=== PATIENT | male | born 1965 | race Caucasian/White ===

== ENCOUNTER 2016-12-28 13:43 | Observation (INO) | payer OTHER ==
[2016-12-28] MEDS ORDERED: ASPIRIN 81 MG CHEW PO STA (14:19)
[2016-12-28] MEDS ORDERED: NITROGLYCERIN SL TABS 0.4 MG TAB SUBLINGUAL STA ×3 (14:19)
--- NOTE | 2016-12-28 14:25 | ED ---
General Adult HPI - General Chief complaint: Chest Pain Stated complaint: Chest Pain Time Seen by Provider: 12/28/16 14:04 Source: patient, RN notes reviewed Mode of arrival: wheelchair Limitations: no limitations - History of Present Illness Initial comments: Patient is a pleasant 51-year-old male presenting to the emergency department complaining of chest discomfort. Symptoms have been intermittent for the past 3 days. Symptoms are becoming more frequent. Discomfort is currently 7/10. Patient has had some associated dyspnea and sweating. No nausea. No history of similar symptoms previous to the past few days. No leg pain or swelling. Patient does have some associated lightheadedness and fluttering in his chest. Discomfort is described as tightness. No radiation. - Related Data Home Medications Medication Instructions Recorded Confirmed Pregabalin [Lyrica] 150 mg PO BID 12/28/16 12/28/16 oxyCODONE HCL/ACETAMINOPHEN 1 tab PO Q8H PRN 12/28/16 12/28/16 [Percocet 10-325 mg] Allergies Allergy/AdvReac Type Severity Reaction Status Date / Time No Known Allergies Allergy Verified 12/28/16 14:46 Review of Systems ROS Statement: Those systems with pertinent positive or pertinent negative responses have been documented in the HPI. ROS Other: All systems not noted in ROS Statement are negative. Constitutional: Denies: fever Eyes: Denies: eye pain ENT: Denies: ear pain Respiratory: Reports: dyspnea. Denies: cough Cardiovascular: Reports: chest pain, palpitations Endocrine: Reports: fatigue Gastrointestinal: Denies: abdominal pain Genitourinary: Denies: dysuria Musculoskeletal: Denies: back pain Skin: Denies: rash Neurological: Denies: weakness Past Medical History Past Medical History: No Reported History History of Any Multi-Drug Resistant Organisms: None Reported Past Surgical History: No Surgical Hx Reported Additional Past Surgical History / Comment(s): EPIDURAL PAIN SHOTS, DECOMPRESSION NECK C6-7 neck fusion Past Psychological History: No Psychological Hx Reported Smoking Status: Current every day smoker Past Alcohol Use History: None Reported Past Drug Use History: None Reported General Exam Limitations: no limitations General appearance: alert, in no apparent distress Head exam: Present: atraumatic, normocephalic Eye exam: Present: normal appearance, PERRL ENT exam: Present: normal oropharynx Neck exam: Present: normal inspection Respiratory exam: Present: normal lung sounds bilaterally Cardiovascular Exam: Present: regular rate, normal rhythm Expanded Peripheral pulses: 2+: Radial (R), Radial (L), Posterior Tibialis (R), Posterior Tibialis (L) GI/Abdominal exam: Present: soft. Absent: distended, tenderness Extremities exam: Present: normal inspection. Absent: pedal edema, calf tenderness Neurological exam: Present: alert Psychiatric exam: Present: normal affect, normal mood Skin exam: Absent: rash Course Vital Signs 12/28/16 12/28/16 12/28/16 13:59 14:32 14:41 Temperature 97.9 F Pulse Rate 77 71 85 Respiratory 18 18 18 Rate Blood Pressure 139/91 118/79 116/72 O2 Sat by Pulse 98 97 96 Oximetry 12/28/16 12/28/16 12/28/16 14:50 15:01 15:12 Temperature Pulse Rate 96 80 78 Respiratory 18 18 18 Rate Blood Pressure 128/81 109/67 133/75 O2 Sat by Pulse 95 96 98 Oximetry EKG Findings - EKG Comments: EKG Findings:: Normal sinus rhythm at 80. ID 150. QRS 100. QT 394. QTC 454. Normal axis. Q wave in lead 3 with inverted T-wave. Medical Decision Making - Medical Decision Making Patient reexamined and resting comfortably in bed. Patient states no significant improvement with nitroglycerin or morphine or GI cocktail. Patient updated on results and plan. Dr. Pulido has been paged for hospital call. - Lab Data Result diagrams: 12/28/16 14:10 12/28/16 14:10 Lab Results 12/28/16 12/28/16 12/28/16 Range/Units 14:10 14:10 14:10 WBC 7.1 (3.8-10.6) k/uL RBC 5.05 (4.30-5.90) m/uL Hgb 15.7 (13.0-17.5) gm/dL Hct 44.6 (39.0-53.0) % MCV 88.4 (80.0-100.0) fL MCH 31.1 (25.0-35.0) pg MCHC 35.2 (31.0-37.0) g/dL RDW 13.3 (11.5-15.5) % Plt Count 212 (150-450) k/uL Neutrophils % 61 % Lymphocytes % 29 % Monocytes % 4 % Eosinophils % 3 % Basophils % 1 % Neutrophils # 4.3 (1.3-7.7) k/uL Lymphocytes # 2.1 (1.0-4.8) k/uL Monocytes # 0.3 (0-1.0) k/uL Eosinophils # 0.3 (0-0.7) k/uL Basophils # 0.1 (0-0.2) k/uL PT (9.0-12.0) sec INR (<1.1) APTT (22.0-30.0) sec D-Dimer (<0.60) mg/L FEU Sodium 141 (137-145) mmol/L Potassium 4.3 (3.5-5.1) mmol/L Chloride 103 (98-107) mmol/L Carbon Dioxide 28 (22-30) mmol/L Anion Gap 10 mmol/L BUN 15 (9-20) mg/dL Creatinine 0.74 (0.66-1.25) mg/dL Est GFR (MDRD) Af Amer >60 (>60 ml/min/1.73 sqM) Est GFR (MDRD) Non-Af >60 (>60 ml/min/1.73 sqM) Glucose 111 H (74-99) mg/dL Calcium 9.6 (8.4-10.2) mg/dL Magnesium 2.1 (1.6-2.3) mg/dL Total Bilirubin 0.6 (0.2-1.3) mg/dL AST 19 (17-59) U/L ALT 31 (21-72) U/L Alkaline Phosphatase 85 (38-126) U/L Total Creatine Kinase 56 (55-170) U/L CK-MB (CK-2) 0.6 (0.0-2.4) ng/mL CK-MB (CK-2) Rel Index 1.1 Troponin I <0.012 (0.000-0.034) ng/mL Total Protein 7.4 (6.3-8.2) g/dL Albumin 4.6 (3.5-5.0) g/dL 12/28/16 Range/Units 14:10 WBC (3.8-10.6) k/uL RBC (4.30-5.90) m/uL Hgb (13.0-17.5) gm/dL Hct (39.0-53.0) % MCV (80.0-100.0) fL MCH (25.0-35.0) pg MCHC (31.0-37.0) g/dL RDW (11.5-15.5) % Plt Count (150-450) k/uL Neutrophils % % Lymphocytes % % Monocytes % % Eosinophils % % Basophils % % Neutrophils # (1.3-7.7) k/uL Lymphocytes # (1.0-4.8) k/uL Monocytes # (0-1.0) k/uL Eosinophils # (0-0.7) k/uL Basophils # (0-0.2) k/uL PT 10.5 (9.0-12.0) sec INR 1.0 (<1.1) APTT 24.5 (22.0-30.0) sec D-Dimer 0.18 (<0.60) mg/L FEU Sodium (137-145) mmol/L Potassium (3.5-5.1) mmol/L Chloride (98-107) mmol/L Carbon Dioxide (22-30) mmol/L Anion Gap mmol/L BUN (9-20) mg/dL Creatinine (0.66-1.25) mg/dL Est GFR (MDRD) Af Amer (>60 ml/min/1.73 sqM) Est GFR (MDRD) Non-Af (>60 ml/min/1.73 sqM) Glucose (74-99) mg/dL Calcium (8.4-10.2) mg/dL Magnesium (1.6-2.3) mg/dL Total Bilirubin (0.2-1.3) mg/dL AST (17-59) U/L ALT (21-72) U/L Alkaline Phosphatase (38-126) U/L Total Creatine Kinase (55-170) U/L CK-MB (CK-2) (0.0-2.4) ng/mL CK-MB (CK-2) Rel Index Troponin I (0.000-0.034) ng/mL Total Protein (6.3-8.2) g/dL Albumin (3.5-5.0) g/dL - Radiology Data Radiology results: image reviewed (Chest x-ray shows no acute process.) Disposition Clinical Impression: Chest pain Disposition: ADMITTED IP TO THIS HOSP
[2016-12-28 14:52] LABS: ALT 31 U/L (21-72); AST 19 U/L (17-59); Alkaline Phosphatase 85 U/L (38-126); Anion Gap 10 mmol/L; Blood Urea Nitrogen 15 mg/dL (9-20); Calcium 9.6 mg/dL (8.4-10.2); Carbon Dioxide 28 mmol/L (22-30); Chloride 103 mmol/L (98-107); Glucose 111 mg/dL (74-99); Magnesium 2.1 mg/dL (1.6-2.3); Non-African American GFR(MDRD) >60 (>60 ml/min/1.73 sqM); Potassium 4.3 mmol/L (3.5-5.1); Sodium 141 mmol/L (137-145); Total Bilirubin 0.6 mg/dL (0.2-1.3); Total Protein 7.4 g/dL (6.3-8.2)
[2016-12-28 14:57] LABS: Basophils # (A) 0.1 k/uL (0-0.2); Basophils % (A) 1 %; CH 31.7; CHCM 36.1; Eosinophils # (A) 0.3 k/uL (0-0.7); Eosinophils % (A) 3 %; HCT 44.6 % (39.0-53.0); HDW 2.98; HGB 15.7 gm/dL (13.0-17.5); Luc # (Auto) 0.12; Luc % (Auto) 2; Lymphocytes # (A) 2.1 k/uL (1.0-4.8); Lymphocytes % (A) 29 %; MCH 31.1 pg (25.0-35.0); MCHC 35.2 g/dL (31.0-37.0); MCV 88.4 fL (80.0-100.0); Mean Platelet Volume 6.9; Monocytes # (A) 0.3 k/uL (0-1.0); Monocytes % (A) 4 %; Neutrophils # (A) 4.3 k/uL (1.3-7.7); Neutrophils % (A) 61 %; RBC 5.05 m/uL (4.30-5.90); RDW 13.3 % (11.5-15.5); WBC 7.1 k/uL (3.8-10.6); WBC (Perox) 7.07
[2016-12-28 15:02] LABS: Creatine Kinase 56 U/L (55-170)
[2016-12-28] MEDS ORDERED: MORPHINE SULFATE 4 MG/ML SYRINGE IVP STA (15:06)
[2016-12-28 15:16] LABS: Creatine Kinase MB 0.6 ng/mL (0.0-2.4); Troponin I <0.012 ng/mL (0.000-0.034)
[2016-12-28 15:24] LABS: Partial Thromboplastin Time 24.5 sec (22.0-30.0); Prothrombin Time 10.5 sec (9.0-12.0)
--- NOTE | 2016-12-28 15:34 | XR ---
EXAMINATION TYPE: XR chest 2V DATE OF EXAM: 12/28/2016 3:29 PM COMPARISON: NONE INDICATION: Chest pain, short of breath TECHNIQUE: Single frontal view of the chest is obtained. FINDINGS: The heart size is normal. The pulmonary vasculature is normal. The lungs are clear. IMPRESSION: 1. No acute pulmonary process.
[2016-12-28] MEDS ORDERED: MAG HYDROX/AL HYDROX/SIMETH 30 ML, HYOSCYAMINE ELIXIR 10 ML, CIMETIDINE HCL 300 MG, LID... PO STA ×4 (15:38)
[2016-12-28] MEDS ORDERED: NITROGLYCERIN SL TABS 0.4 MG TAB SUBLINGUAL PRN (16:16)
[2016-12-28] MEDS ORDERED: oxyCODONE-APAP 10-325MG 1 EACH TAB PO PRN ×2 (17:43→19:14)
[2016-12-28] MEDS: NITROGLYCERIN OINT 1 INCH/GM PACKET TOPICAL SCH (18:41)
[2016-12-28] MEDS: IBUPROFEN 800 MG TAB PO SCH ×2 (18:45→23:00)
[2016-12-28] MEDS: PREGABALIN 75 MG CAP PO SCH (20:02)
[2016-12-28 20:51] LABS: Creatine Kinase 46 U/L (55-170)
[2016-12-28 21:05] LABS: Creatine Kinase MB 0.4 ng/mL (0.0-2.4); Troponin I <0.012 ng/mL (0.000-0.034)
[2016-12-29] MEDS: NITROGLYCERIN OINT 1 INCH/GM PACKET TOPICAL SCH ×3 (02:59→13:51)
[2016-12-29 03:18] LABS: Cholesterol 178 mg/dL (<200); HDL Cholesterol 40 mg/dL (40-60); Triglycerides 142 mg/dL (<150)
[2016-12-29 03:46] LABS: Creatine Kinase 36 U/L (55-170)
[2016-12-29 03:57] LABS: Creatine Kinase MB 0.3 ng/mL (0.0-2.4); Troponin I <0.012 ng/mL (0.000-0.034)
--- NOTE | 2016-12-29 06:03 | HP ---
DATE OF ADMISSION: CHIEF COMPLAINT: Chest pain. HISTORY OF PRESENT ILLNESS: This is the first admission for this 51-year-old white male. He has had discomfort in the left anterior chest for about 4 days in the pectoralis muscle area. He describes it as actually being deep in the chest, however. He feels tight and he has had some shortness of breath and diaphoresis. He has had no syncope or nausea. EKG and enzymes in the emergency room are normal. As far as he knows, he does not have hyperlipidemia, family history, hypertension, etc. REVIEW OF SYSTEMS: He has had no neurologic problems, difficulty with vision or hearing, hemoptysis, asthma, murmurs, rheumatic fever, abdominal pain, nausea, vomiting, hematemesis, melena, hematochezia, jaundice, fever, chills, hematuria, frequency, urgency, diabetes, etc. Past medical history, family history and personal and social histories reveal that he has no allergies. He is on Lyrica and Percocet for neck pain and shoulder discomfort. Surgically, he has had a cervical spine fusion and procedure on the rotator cuff on the right. He smokes a pack of cigarettes a day. PHYSICAL EXAMINATION: Blood pressure 121/86 with a pulse of 83, respirations 19. He is afebrile. GENERAL: He appeared to well developed, well nourished no acute distress. Skin color is normal. Skin is warm and dry. Lymph nodes are not enlarged. Head, ears, eyes, nose, mouth, and throat normal. Neck veins not distended. Thyroid is not enlarged. Chest is clear. Cardiac exam is normal with normal sinus rhythm and no murmurs or extra sounds. Chest wall is not tender. ABDOMEN: Soft, nontender without any visceromegaly or masses. Bowel sounds present. EXTREMITIES: They are normal. Neurologically, he is intact. IMPRESSION: Chest pain. PLAN: 1. Bed rest. 2. IV fluids. 3. Serial EKGs and enzymes. 4. Eventual stress study either as an inpatient or outpatient.
[2016-12-29] MEDS ORDERED: ASPIRIN 325 MG TAB PO SCH (09:00)
[2016-12-29] MEDS: PREGABALIN 75 MG CAP PO SCH (09:02)
[2016-12-29] MEDS: IBUPROFEN 800 MG TAB PO SCH ×2 (09:02→13:51)
--- NOTE | 2016-12-29 09:37 | P.HPIM ---
History of Present Illness H&P Date: 12/29/16 Chief Complaint: Chest pain 51-year-old male presented on the day of admission to the emergency room to be evaluated for a chief complaint of developing intermittent episodes of chest pressure in the left anterior chest wall. Patient stated it started several days ago became more persistent. [place] stated there was a sensation of shortness of breath and did break out in a sweat there was no nausea. Patient gives no prior or similar episodes. 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 COLONOSCOPY/POLYPECTOMY( BENIGN) Past Anesthesia/Blood Transfusion Reactions: No Reported Reaction Past Psychological History: No Psychological Hx Reported Additional Psychological History / Comment(s): PT IS INDEPENDANT. NO ASSITIVE DEVICES-NO HOSPITAL EQUIPMENT. 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 NO SERVICE IN PAST. LIVES WITH GIRL FRIEND AND 2 DAUGHTERS. A CHOCLATE LAB NAMED [employer], A CAT NAMED MICHELE AND A GOLD FISH NAMED KENIA. HAS 3 STEPS INTO HOME. 2 STORY HOME-HAS 15 STAIRS TO UPPER LEVEL. Smoking Status: Current every day smoker Past Alcohol Use History: None Reported Additional Past Alcohol Use History / Comment(s): STARTED SMOKING AT AGE 18, SMOKES 1 PPD Past Drug Use History: None Reported - Past Family History Father Family Medical History: Cancer Additional Family Medical History / Comment(s): PANCREATIC CANCER Mother Family Medical History: No Reported History Additional Family Medical History / Comment(s): "HEALTHY" Medications and Allergies Home Medications Medication Instructions Recorded Confirmed Type Pregabalin [Lyrica] 150 mg PO BID 12/28/16 12/28/16 History oxyCODONE HCL/ACETAMINOPHEN 1 tab PO Q8H PRN 12/28/16 12/28/16 History [Percocet 10-325 mg] Allergies Allergy/AdvReac Type Severity Reaction Status Date / Time No Known Allergies Allergy Verified 12/28/16 14:46 Physical Exam Vitals: Vital Signs Temp Pulse Pulse Pulse Resp BP BP 12/29/16 07:51 97.7 F 76 17 111/62 12/29/16 04:00 97.7 F 66 66 16 100/70 12/29/16 00:00 97.8 F 62 60 16 102/64 12/28/16 20:00 73 16 12/28/16 17:40 97.5 F L 68 16 121/86 12/28/16 17:15 97.3 F L 67 18 137/84 12/28/16 16:58 77 18 109/84 Pulse Ox 12/29/16 07:51 96 12/29/16 04:00 95 12/29/16 00:00 97 12/28/16 20:00 12/28/16 17:40 99 12/28/16 17:15 98 12/28/16 16:58 97 Intake and Output 12/28/16 12/29/16 12/29/16 22:59 06:59 14:59 Other: Voiding Method Toilet Toilet # Voids 2 Weight 75.5 kg 75.5 kg GENERAL APPEARANCE: 51-year-old male patient is alert, oriented, in no acute distress. VITAL SIGNS: Reviewed HEENT: Head is normocephalic and atraumatic. Pupils are equal and reactive. The nares are patent. Oropharynx is clear without lesions. NECK: Supple without lymphadenopathy. Traches midline. HEART: S1, S2. Regular rate and rhythm. No murmur LUNGS: No crackles or wheezes are heard. Essentially clear on room air ABDOMEN: Soft, nontender, nondistended with good bowel sounds. No peritoneal signs. No palpable organomegaly or masses. EXTREMITIES: Normal skin color and turgor. No cyanosis, rash, ulceration, clubbing or edema. Radial pedal pulses are 2/4 bilaterally. NEUROLOGICAL: No focal deficits. Strength and sensation are grossly intact. Results CBC & Chem 7: 12/28/16 14:10 12/28/16 14:10 Labs: Abnormal Lab Results - Last 24 Hours (Table) 12/28/16 12/29/16 12/29/16 Range/Units 20:12 02:44 02:44 Total Creatine Kinase 46 L 36 L (55-170) U/L LDL Cholesterol, Calc 110 H (0-99) mg/dL Assessment and Plan Plan: Impression Present on admission atypical chest pain Chronic pain with opiate dependency Current every day smoker Plan Follow up on the cardiac enzymes if negative patient can be discharged home Resume home meds as appropriate The above dictated assessment and findings were discussed with Dr. Leblanc Impression and the plan of care have been dictated as directed. Jazzy Monge nurse practitioner acting as a scribe for Dr. Leblanc
--- NOTE | 2016-12-29 09:40 | P.DS ---
Providers Date of admission: 12/28/16 16:18 Expected date of discharge: 12/29/16 Attending physician: Baudilio Drake Primary care physician: Stated None Hospital Course: 51-year-old male presented on the day of admission to the emergency room to be evaluated for a chief complaint of developing intermittent episodes of chest pressure in the left anterior chest wall. Patient stated it started several days ago became more persistent. Maltese stated there was a sensation of shortness of breath and did break out in a sweat there was no nausea. Patient gives no prior or similar episodes. Patient has no significant past medical history given the above clinical presentation the patient was admitted for further cardiac workup Impression discharge diagnosis Present on admission chest pain atypical features no evidence of acute coronary syndrome negative cardiac enzymes Chronic neck and shoulder pain Chronic pain with opiate dependency Active nicotine dependency 1 pack daily greater than a 20 year history with probable COPD undiagnosed The above dictated assessment and findings were discussed with dr noelle Wolfe and the plan of care have been dictated as directed. Jazzy Monge nurse practitioner acting as a scribe for dr drake Plan - Discharge Summary Discharge Medication List Pregabalin [Lyrica] 150 mg PO BID 12/28/16 [History] oxyCODONE HCL/ACETAMINOPHEN [Percocet 10-325 mg] 1 tab PO Q8H PRN 12/28/16 [ History] Follow up Appointment(s)/Referral(s): None,Stated [Primary Care Provider] - 1-2 days
[2016-12-29 12:02] VITALS: BP 121/81; PULSE 82; RESP 18; TEMP 97.5
--- NOTE | 2016-12-29 17:34 | PN ---
CHIEF COMPLAINT: Chest pain. HISTORY OF PRESENT ILLNESS: This gentleman is doing well and enzymes are normal and EKGs were normal. We will let him go home today. On physical exam was unremarkable. His discharge will ( ) and the nurse and we will see him in the office and then we will perform a stress study at that time.
== END 2016-12-29 13:55 | disposition home or self-care (01) ==
LOC: EC 13:43 → 3OBS 16:18
PROVIDERS: ADMIT Family Medicine; ATTEND Family Medicine
DX: R07.89 Other chest pain (principal); R06.02 Shortness of breath; R61 Generalized hyperhidrosis; G89.29 Other chronic pain; M54.2 Cervicalgia; M25.519 Pain in unspecified shoulder; F11.20 Opioid dependence, uncomplicated; Z98.1 Arthrodesis status; F17.210 Nicotine dependence, cigarettes, uncomplicated; Z79.899 Other long term (current) drug therapy
CPT/HCPCS: 36415; 93005; 85379; 80061; 80053; 82550 ×2; 82553 ×2; 83735; 84484 ×2; 85025; 85610; 85730; 71020; 99285; 96374; G0378 ×2; J2270

== ENCOUNTER 2017-12-24 12:49 | Emergency (ER) | payer OTHER ==
--- NOTE | 2017-12-24 13:17 | ED ---
General Adult HPI - General Chief complaint: Back Pain/Injury Stated complaint: Lumbar Pain Time Seen by Provider: 12/24/17 13:03 Source: patient, RN notes reviewed Mode of arrival: ambulatory Limitations: no limitations - History of Present Illness Initial comments: This is a 52-year-old male presents emergency Department chief complaint of neck and back pain. Patient states that 3 days ago he started having symptoms or he has increased pain when he goes from sitting to standing states he was shooting pain from his neck down to his low back into his right leg. Patient does admit that he had a herniated disc any head cervical fusion by Dr. Lincoln. Patient states that he normally does have some discomfort but this is out of the usual for his self. He denies any chest pain or shortness of breath. Patient states he is able to look left and right states that he just feels pain that comes into his arms also with movement. Patient denies any current paresthesias of his upper extremities he does occasionally admit to lower extremity paresthesias. Denies any urinary retention or bowel incontinence. Patient has no abdominal pain denies any nausea vomiting diarrhea constipation. Patient states he does see Dr. Rockwell for pain management. Patient did admit that he thought he remembered slipping on some ice just prior to symptoms starting. He states when he finally gets up and walking this does improve his symptoms. - Related Data Home Medications Medication Instructions Recorded Confirmed Pregabalin [Lyrica] 150 mg PO BID 12/28/16 12/24/17 oxyCODONE HCL/ACETAMINOPHEN 1 tab PO Q8H PRN 12/28/16 12/24/17 [Percocet 10-325 mg] Previous Rx's Medication Instructions Recorded Cyclobenzaprine [Flexeril] 10 mg PO TID PRN #15 tab 12/24/17 predniSONE 50 mg PO DAILY #5 tab 12/24/17 Allergies Allergy/AdvReac Type Severity Reaction Status Date / Time No Known Allergies Allergy Verified 12/24/17 12:56 Review of Systems ROS Statement: Those systems with pertinent positive or pertinent negative responses have been documented in the HPI. ROS Other: All systems not noted in ROS Statement are negative. 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 COLONOSCOPY/POLYPECTOMY( BENIGN) Past Anesthesia/Blood Transfusion Reactions: No Reported Reaction Past Psychological History: No Psychological Hx Reported Smoking Status: Current every day smoker Past Alcohol Use History: None Reported Past Drug Use History: None Reported - Past Family History Father Family Medical History: Cancer Additional Family Medical History / Comment(s): PANCREATIC CANCER Mother Family Medical History: No Reported History Additional Family Medical History / Comment(s): "HEALTHY" General Exam Limitations: no limitations General appearance: alert, in no apparent distress Head exam: Present: atraumatic, normocephalic, normal inspection Neck exam: Present: normal inspection, tenderness (Tenderness over C6-C7), full ROM. Absent: meningismus, lymphadenopathy Respiratory exam: Present: normal lung sounds bilaterally. Absent: respiratory distress, wheezes, rales, rhonchi, stridor, chest wall tenderness Cardiovascular Exam: Present: regular rate, normal rhythm, normal heart sounds. Absent: systolic murmur, diastolic murmur, rubs, gallop, clicks GI/Abdominal exam: Present: soft, normal bowel sounds. Absent: distended, tenderness, guarding, rebound, rigid Extremities exam: Present: other (Upper and lower extremity pulses equal bilaterally, neurovascular intact he does have full range of motion though reports mild discomfort with range of motion of his lower extremities. There is no notable weakness no discoloration) Back exam: Present: normal inspection, full ROM, tenderness (Tenderness to the lumbar region primarily on the right paraspinal), paraspinal tenderness. Absent : vertebral tenderness Neurological exam: Present: reflexes normal. Absent: motor sensory deficit Skin exam: Present: warm, dry, intact, normal color. Absent: rash Course Vital Signs 12/24/17 12:53 Temperature 98.7 F Pulse Rate 94 Respiratory 20 Rate Blood Pressure 109/78 O2 Sat by Pulse 98 Oximetry Medical Decision Making - Medical Decision Making 52-year-old male presents from for neck and back pain. Patient had CTs of his neck and lumbar region cervical spine shows postsurgical changes no acute abnormality. Lumbar spine shows disc herniation most likely leading to his symptoms at this time. Patient will follow-up with his surgeon Dr. Mccloud and pain management Dr. Rockwell. Patiently discharges steroids, muscle relaxers. Return parameters were discussed. Disposition Clinical Impression: Lumbar disc herniation, Cervical pain Disposition: HOME SELF-CARE Condition: Stable Instructions: Acute Low Back Pain (ED) Additional Instructions: Please return to the Emergency Department if symptoms worsen or any other concerns. Prescriptions: Cyclobenzaprine [Flexeril] 10 mg PO TID PRN #15 tab PRN Reason: Muscle Spasm predniSONE 50 mg PO DAILY #5 tab Referrals: Baudilio Leblanc MD [Primary Care Provider] - 1-2 days Jennifer Lincoln DO [Doctor of Osteopathic Medicine] - 1-2 days Time of Disposition: 14:09
--- NOTE | 2017-12-24 13:58 | CT ---
EXAMINATION TYPE: CT cervical spine wo con DATE OF EXAM: 12/24/2017 COMPARISON: 11/12/2014 HISTORY: pain, no injury CT DLP: 563.7 mGycm Automated exposure control for dose reduction was used. TECHNIQUE: CT scan of the cervical spine is obtained without contrast, axial images are obtained, sa gittal and coronal reformatted images are also reviewed. FINDINGS: There is a plate with screws fusing anteriorly the cervical spine at C6-7. Vertebra have no rmal alignment. Posterior elements appear intact. Skull base appears intact. There is no evidence of a fracture. There is mild spurring anteriorly at C4-5 C5-6. There is no significant disc space narrow ing. IMPRESSION: Previous surgery. No acute abnormality of the cervical spine. Minimal spondylotic changes . No adverse change compared to old exam.
--- NOTE | 2017-12-24 14:00 | CT ---
EXAMINATION TYPE: CT lumbar spine wo con DATE OF EXAM: 12/24/2017 1:42 PM COMPARISON: NONE HISTORY: pain, no injury CT DLP: 404.4 mGycm Automated exposure control for dose reduction was used. Unenhanced CT of the lumbar spine was performed. Bone and soft tissue window settings are submitted as well as coronal and sagittal reconstructions. Lumbar vertebra have normal alignment. There is narrowing at L5-S1 disc space with anterior and poste rior lumbar disc herniation at L5-S1. There is spurring of the endplates at L5-S1. Posterior elements are intact. There is no compression fracture. The sacroiliac joints appear normal. There is no lumba r paraspinal mass. I see no focal bone destruction. IMPRESSION: Moderate spondylosis at L5-S1 with posterior and anterior disc herniations. There is developmentally adequate spinal canal and no significant spinal stenosis. L5-S1 disc herniation is slightly more towa rds the left side.
[2017-12-24] MEDS ORDERED: MORPHINE SULFATE 4 MG/ML SYRINGE IM STA (14:06)
[2017-12-24] MEDS ORDERED: methylPREDNISolone SOD SUCCI 125 MG/2 ML VIAL IM ONE (14:06)
[2017-12-24 14:31] VITALS: BP 120/86; PULSE 81; RESP 18; TEMP 97.4
== END 2017-12-24 14:31 | disposition home or self-care (01) ==
LOC: EC 12:49
DX: M51.26 Other intervertebral disc displacement, lumbar region (principal); M54.2 Cervicalgia; F17.200 Nicotine dependence, unspecified, uncomplicated; Z98.1 Arthrodesis status; Z79.899 Other long term (current) drug therapy
CPT/HCPCS: 99283; 96372 ×2; 72125; 72131; J2270; J2930

== ENCOUNTER 2018-03-08 12:42 | Emergency (ER) | payer OTHER ==
--- NOTE | 2018-03-08 12:55 | ED ---
Psych HPI - General Source: patient, EMS, RN notes reviewed Mode of arrival: EMS - History of Present Illness MD Complaint: suicidal ideation, feels depressed, other <Danilo Hill - Last Filed: 03/08/18 16:57> <Danilo Calhoun - Last Filed: 03/08/18 21:27> - General Stated Complaint: suicidal Time Seen by Provider: 03/08/18 12:42 - History of Present Illness Initial Comments: This is a 52-year-old male history depression and prior attempts at suicide by overdose apparently described it from his apartment recently he was brought in by EMS due to suicidal thoughts and ideation. He states she's feeling depressed. He doesn't have a definite plan at this time for hurting himself however. He additionally states she's been having intermittent chest pains over last couple weeks none at this time retrosternal when he gets that no fevers chills nausea vomiting sweats cough or phlegm production or other symptoms. No trauma. (Danilo Hill) - Related Data Home Medications Medication Instructions Recorded Confirmed oxyCODONE HCL/ACETAMINOPHEN 1 tab PO Q8H PRN 12/28/16 03/08/18 [Percocet 10-325 mg] Ibuprofen [Motrin] 800 mg PO Q6H PRN 03/08/18 03/08/18 Allergies Allergy/AdvReac Type Severity Reaction Status Date / Time No Known Allergies Allergy Verified 03/08/18 13:07 Review of Systems ROS Other: All systems not noted in ROS Statement are negative. <Danilo Hill - Last Filed: 03/08/18 16:57> ROS Other: All systems not noted in ROS Statement are negative. <Danilo Calhoun - Last Filed: 03/08/18 21:27> ROS Statement: Those systems with pertinent positive or pertinent negative responses have been documented in the HPI. 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 COLONOSCOPY/POLYPECTOMY( BENIGN) Past Anesthesia/Blood Transfusion Reactions: No Reported Reaction Past Psychological History: No Psychological Hx Reported Smoking Status: Current every day smoker Past Alcohol Use History: None Reported Past Drug Use History: None Reported - Past Family History Father Family Medical History: Cancer Additional Family Medical History / Comment(s): PANCREATIC CANCER Mother Family Medical History: No Reported History Additional Family Medical History / Comment(s): "HEALTHY" <Danilo Hill - Last Filed: 03/08/18 16:57> General Exam General appearance: alert, in no apparent distress Head exam: Present: atraumatic, normocephalic, normal inspection Eye exam: Present: normal appearance, PERRL, EOMI. Absent: scleral icterus, conjunctival injection, periorbital swelling ENT exam: Present: normal exam, mucous membranes moist Neck exam: Present: normal inspection. Absent: tenderness, meningismus, lymphadenopathy Respiratory exam: Present: normal lung sounds bilaterally. Absent: respiratory distress, wheezes, rales, rhonchi, stridor Cardiovascular Exam: Present: regular rate, normal rhythm, normal heart sounds. Absent: systolic murmur, diastolic murmur, rubs, gallop, clicks GI/Abdominal exam: Present: soft, normal bowel sounds. Absent: distended, tenderness, guarding, rebound, rigid Extremities exam: Present: normal inspection, full ROM, normal capillary refill. Absent: tenderness, pedal edema, joint swelling, calf tenderness Back exam: Present: normal inspection Neurological exam: Present: alert, oriented X3, CN II-XII intact Psychiatric exam: Present: depressed, flat affect, suicidal ideation Skin exam: Present: warm, dry, intact, normal color. Absent: rash <Danilo Hill - Last Filed: 03/08/18 16:57> <Danilo Calhoun N - Last Filed: 03/08/18 21:27> - General Exam Comments Initial Comments: This is a well-developed well-nourished awake alert oriented 3 male (Danilo Hill) Course <Danilo Hill - Last Filed: 03/08/18 16:57> <Danilo Calhoun - Last Filed: 03/08/18 21:27> Vital Signs 03/08/18 03/08/18 13:16 17:43 Temperature 98 F Pulse Rate 89 78 Respiratory 16 16 Rate Blood Pressure 139/75 121/75 O2 Sat by Pulse 98 100 Oximetry - Reevaluation(s) Reevaluation #1: 03/08/18 16:57 EKG obtained at 1656, normal sinus rhythm, rate of 64, IA interval 160, QRS duration 96, QTC 431, no ST segment elevation. (Danilo Calhoun) Reevaluation #2: 03/08/18 16:58 Patient's care will be endorsed to Dr. Calhoun at our shift change (Danilo Hill) Medical Decision Making - Lab Data Result diagrams: 03/08/18 13:23 03/08/18 14:30 <Danilo Hill - Last Filed: 03/08/18 16:57> - Lab Data Result diagrams: 03/08/18 13:23 03/08/18 14:30 <Danilo Calhoun - Last Filed: 03/08/18 21:27> - Medical Decision Making Patient signed out awaiting EPS evaluation. Patient is no longer suicidal, he denies any plan. He does have a plan to stay with a friend today. He will be discharged home with close outpatient follow-up. (Danilo Calhoun) - Lab Data Lab Results 03/08/18 03/08/18 03/08/18 Range/Units 13:23 13:23 13:23 WBC 6.5 (3.8-10.6) k/uL RBC 5.13 (4.30-5.90) m/uL Hgb 15.7 (13.0-17.5) gm/dL Hct 45.6 (39.0-53.0) % MCV 88.8 (80.0-100.0) fL MCH 30.7 (25.0-35.0) pg MCHC 34.5 (31.0-37.0) g/dL RDW 13.4 (11.5-15.5) % Plt Count 252 (150-450) k/uL Neutrophils % 58 % Lymphocytes % 31 % Monocytes % 5 % Eosinophils % 4 % Basophils % 1 % Neutrophils # 3.8 (1.3-7.7) k/uL Lymphocytes # 2.0 (1.0-4.8) k/uL Monocytes # 0.3 (0-1.0) k/uL Eosinophils # 0.3 (0-0.7) k/uL Basophils # 0.0 (0-0.2) k/uL PT 10.0 (9.0-12.0) sec INR 1.0 (<1.2) APTT 24.4 (22.0-30.0) sec D-Dimer 0.32 (<0.60) mg/L FEU Sodium (137-145) mmol/L Potassium (3.5-5.1) mmol/L Chloride (98-107) mmol/L Carbon Dioxide (22-30) mmol/L Anion Gap mmol/L BUN (9-20) mg/dL Creatinine (0.66-1.25) mg/dL Est GFR (CKD-EPI)AfAm (>60 ml/min/1.73 sqM) Est GFR (CKD-EPI)NonAf (>60 ml/min/1.73 sqM) Glucose (74-99) mg/dL Calcium (8.4-10.2) mg/dL Magnesium (1.6-2.3) mg/dL Total Bilirubin (0.2-1.3) mg/dL AST (17-59) U/L ALT (21-72) U/L Alkaline Phosphatase (38-126) U/L Total Creatine Kinase (55-170) U/L CK-MB (CK-2) (0.0-2.4) ng/mL CK-MB (CK-2) Rel Index Troponin I (0.000-0.034) ng/mL Total Protein (6.3-8.2) g/dL Albumin (3.5-5.0) g/dL Urine Opiates Screen Not Detected (NotDetected) Ur Oxycodone Screen Not Detected (NotDetected) Urine Methadone Screen Not Detected (NotDetected) Ur Propoxyphene Screen Not Detected (NotDetected) Ur Barbiturates Screen Not Detected (NotDetected) U Tricyclic Antidepress Not Detected (NotDetected) Ur Phencyclidine Scrn Not Detected (NotDetected) Ur Amphetamines Screen Not Detected (NotDetected) U Methamphetamines Scrn Not Detected (NotDetected) U Benzodiazepines Scrn Detected H (NotDetected) Urine Cocaine Screen Not Detected (NotDetected) U Marijuana (THC) Screen Not Detected (NotDetected) Serum Alcohol mg/dL 03/08/18 03/08/18 03/08/18 Range/Units 14:30 14:30 20:12 WBC (3.8-10.6) k/uL RBC (4.30-5.90) m/uL Hgb (13.0-17.5) gm/dL Hct (39.0-53.0) % MCV (80.0-100.0) fL MCH (25.0-35.0) pg MCHC (31.0-37.0) g/dL RDW (11.5-15.5) % Plt Count (150-450) k/uL Neutrophils % % Lymphocytes % % Monocytes % % Eosinophils % % Basophils % % Neutrophils # (1.3-7.7) k/uL Lymphocytes # (1.0-4.8) k/uL Monocytes # (0-1.0) k/uL Eosinophils # (0-0.7) k/uL Basophils # (0-0.2) k/uL PT (9.0-12.0) sec INR (<1.2) APTT (22.0-30.0) sec D-Dimer (<0.60) mg/L FEU Sodium 145 (137-145) mmol/L Potassium 4.5 (3.5-5.1) mmol/L Chloride 103 (98-107) mmol/L Carbon Dioxide 29 (22-30) mmol/L Anion Gap 13 mmol/L BUN 14 (9-20) mg/dL Creatinine 0.65 L (0.66-1.25) mg/dL Est GFR (CKD-EPI)AfAm >90 (>60 ml/min/1.73 sqM) Est GFR (CKD-EPI)NonAf >90 (>60 ml/min/1.73 sqM) Glucose 90 (74-99) mg/dL Calcium 9.6 (8.4-10.2) mg/dL Magnesium 2.2 (1.6-2.3) mg/dL Total Bilirubin 0.4 (0.2-1.3) mg/dL AST 24 (17-59) U/L ALT 40 (21-72) U/L Alkaline Phosphatase 72 (38-126) U/L Total Creatine Kinase 33 L 26 L (55-170) U/L CK-MB (CK-2) 0.3 <0.2 (0.0-2.4) ng/mL CK-MB (CK-2) Rel Index 0.9 Troponin I <0.012 <0.012 (0.000-0.034) ng/mL Total Protein 6.9 (6.3-8.2) g/dL Albumin 4.4 (3.5-5.0) g/dL Urine Opiates Screen (NotDetected) Ur Oxycodone Screen (NotDetected) Urine Methadone Screen (NotDetected) Ur Propoxyphene Screen (NotDetected) Ur Barbiturates Screen (NotDetected) U Tricyclic Antidepress (NotDetected) Ur Phencyclidine Scrn (NotDetected) Ur Amphetamines Screen (NotDetected) U Methamphetamines Scrn (NotDetected) U Benzodiazepines Scrn (NotDetected) Urine Cocaine Screen (NotDetected) U Marijuana (THC) Screen (NotDetected) Serum Alcohol <10 mg/dL Disposition <Danilo Hill - Last Filed: 03/08/18 16:57> Is patient prescribed a controlled substance at d/c from ED?: No Time of Disposition: 21:27 <Danilo Calhoun - Last Filed: 03/08/18 21:27> Clinical Impression: Depression Disposition: HOME SELF-CARE Condition: Fair Instructions: Depression (ED) Referrals: Baudilio Leblanc MD [Primary Care Provider] - 1-2 days
[2018-03-08 13:54] LABS: Basophils % (A) 1 %; Eosinophils # (A) 0.3 k/uL (0-0.7); Eosinophils % (A) 4 %; HCT 45.6 % (39.0-53.0); HGB 15.7 gm/dL (13.0-17.5); Lymphocytes % (A) 31 %; MCH 30.7 pg (25.0-35.0); MCHC 34.5 g/dL (31.0-37.0); MCV 88.8 fL (80.0-100.0); Monocytes # (A) 0.3 k/uL (0-1.0); Monocytes % (A) 5 %; Neutrophils # (A) 3.8 k/uL (1.3-7.7); Neutrophils % (A) 58 %; Platelet Count 252 k/uL (150-450); RBC 5.13 m/uL (4.30-5.90); RDW 13.4 % (11.5-15.5); WBC 6.5 k/uL (3.8-10.6)
[2018-03-08] MEDS ORDERED: LORazepam 1 MG TAB PO STA (14:02)
--- NOTE | 2018-03-08 14:05 | XR ---
EXAMINATION TYPE: XR chest 2V DATE OF EXAM: 03/08/2018 COMPARISON: 12/28/2016 HISTORY: Chest pain. Tobacco abuse. Prior asbestos exposure. TECHNIQUE: Frontal and lateral views of the chest are obtained. FINDINGS: There is no focal air space opacity, pleural effusion, or pneumothorax seen. The cardiac silhouette size is within normal limits. The osseous structures are intact. No calcified pleural pl aques are seen. Cervical fusion device is noted. IMPRESSION: No acute cardiopulmonary process. No calcified pleural plaques or radiographic sequela o f asbestos exposure.
[2018-03-08 14:13] LABS: Amphetamine Screen,Urine Not Detected (NotDetected); Barbiturate Screen,Urine Not Detected (NotDetected); Benzodiazepines Screen,Urine Detected (NotDetected); Cocaine Screen,Urine Not Detected (NotDetected); Methadone Screen, Urine Not Detected (NotDetected); Opiate Screen,Urine Not Detected (NotDetected); Oxycodone Screen, Urine Not Detected (NotDetected); Phencyclidine Screen,Urine Not Detected (NotDetected); Tricyclic Antidepressant,Urine Not Detected (NotDetected); Urn Cannabinoid Scrn Not Detected (NotDetected)
[2018-03-08 14:28] LABS: D-Dimer 0.32 mg/L FEU (<0.60); Partial Thromboplastin Time 24.4 sec (22.0-30.0)
[2018-03-08 14:47] LABS: ALT 40 U/L (21-72); AST 24 U/L (17-59); Albumin 4.4 g/dL (3.5-5.0); Alcohol <10 mg/dL; Alkaline Phosphatase 72 U/L (38-126); Anion Gap 13 mmol/L; Blood Urea Nitrogen 14 mg/dL (9-20); Calcium 9.6 mg/dL (8.4-10.2); Carbon Dioxide 29 mmol/L (22-30); Chloride 103 mmol/L (98-107); Glucose 90 mg/dL (74-99); Magnesium 2.2 mg/dL (1.6-2.3); Potassium 4.5 mmol/L (3.5-5.1); Sodium 145 mmol/L (137-145); Total Bilirubin 0.4 mg/dL (0.2-1.3); Total Protein 6.9 g/dL (6.3-8.2)
[2018-03-08 17:04] LABS: Creatine Kinase 33 U/L (55-170)
[2018-03-08 17:17] LABS: Creatine Kinase MB 0.3 ng/mL (0.0-2.4); Troponin I <0.012 ng/mL (0.000-0.034)
[2018-03-08 20:34] LABS: Creatine Kinase 26 U/L (55-170)
[2018-03-08 20:48] LABS: Creatine Kinase MB <0.2 ng/mL (0.0-2.4); Troponin I <0.012 ng/mL (0.000-0.034)
[2018-03-08 21:35] VITALS: BP 132/88; PULSE 69; RESP 18; TEMP 97.3
== END 2018-03-08 21:34 | disposition home or self-care (01) ==
LOC: EC 12:42
DX: F32.9 Major depressive disorder, single episode, unspecified (principal); R45.851 Suicidal ideations; R45.86 Emotional lability; R07.9 Chest pain, unspecified; F17.200 Nicotine dependence, unspecified, uncomplicated
CPT/HCPCS: 36415; 71046; 80053; 80306; 80320; 82075; 82550; 82553; 83735; 84484; 85025; 85379; 85610; 85730; 93005; 99285

== ENCOUNTER → 2019-01-15 | Outpatient (CLI) | payer OTHER ==
--- NOTE | 2019-01-15 12:57 | CT ---
EXAMINATION TYPE: CT chest wo con DATE OF EXAM: 01/15/2019 COMPARISON: None HISTORY: Left sided chest. CT DLP: 523 mGycm. Automated Exposure Control for Dose Reduction was Utilized. TECHNIQUE: CT scan of the thorax is performed without IV contrast. FINDINGS: LUNGS: The lungs are grossly clear, there is no evidence of acute pneumonia. There is no pleural ef fusion or pneumothorax seen. The tracheobronchial tree is patent. There is a 3 mm nodule within the right middle lobe on axial image 27. MEDIASTINUM: Lack of IV contrast is noted to limit evaluation for mediastinal and especially hilar ad enopathy. There are no definitive greater than 1 cm hilar or mediastinal lymph nodes. No cardiomega ly or pericardial effusion is seen. Atherosclerotic change aorta dense coronary artery calcification noted. OTHER: Postsurgical change of the cervical spine. IMPRESSION: 1. There is a 3 mm pulmonary nodule right middle lobe axial image 27 too small to characterize. Recom mend 6 month follow-up to confirm stability. 3. Dense coronary artery calcification correlate for coronary artery atherosclerotic disease.
== END | disposition home or self-care (01) ==
LOC: RADCTMAIN 12:20
PROVIDERS: ATTEND Family Medicine
DX: R91.1 Solitary pulmonary nodule (principal); I25.10 Atherosclerotic heart disease of native coronary artery without angina pectoris
CPT/HCPCS: 71250

== ENCOUNTER → 2019-01-22 | Outpatient (CLI) | payer OTHER ==
--- NOTE | 2019-01-22 16:25 | MR ---
MRI CERVICAL SPINE: CLINICAL HISTORY: M79.602 / R20.2 per order. Left arm pain and numbness. Headache with neck pain down left arm for 3 years causing her pain or weakness in both arms and fingers with history of C5-C6 fus ion for patient. TECHNIQUE: Multiplanar, multisequence imaging of the cervical spine is performed without and with IV contrast, 8.5 cc of gadolinium was given intravenously. COMPARISON: CT cervical spine December 24, 2017 FINDINGS: Coronal images redemonstrate levoconvex scoliotic curvature centered in the upper thoracic spine. Sagittal images of the cervical spine show the craniocervical junction to appear within normal limits. The cervical and upper thoracic spinal cord is normal in course, caliber, and signal. There is artifact from anterior fusion plate C6-C7 level. There is mild/moderate disc space narrowing C5-C 6 level with posterior disc herniation mildly effacing anterior thecal sac on sagittal images otherwi se the vertebral body and intravertebral disk heights are normal above and below surgical levels. Th e bone marrow signal intensity is within normal limits above and below surgical levels. No suspicious enhancement is seen. Axial images show the C2-C3 and C3-C4 levels to appear within normal limits. Axial images at C4-C5 level mild broad disc bulge with some bilateral uncovertebral facet joint spurr ing, there is mild effacement of the anterior thecal sac and mild left greater than right bilateral n eural foraminal narrowing. Axial images at C5-C6 level is artifact from anterior fusion plate. There is posterior right paracent ral broad-based disc protrusion effacing anterolateral thecal sac with mild to moderate left greater than right bilateral neural foraminal narrowing. Axial images at C6-C7 levels artifacts from surgical change, there is mild left-sided neural foramina l narrowing due to marginal spurring. Spinal canal is preserved. Axial images at C7-T1 levels artifact from surgical hardware otherwise are felt within normal limits. IMPRESSION: Postsurgical change C6-C7 level with satisfactory alignment. Some degenerative changes mi d cervical spine noted most prominent at C5-C6 level as detailed above..
== END | disposition home or self-care (01) ==
LOC: RADMRIMAIN 14:38
PROVIDERS: ATTEND Family Medicine
DX: M47.812 Spondylosis without myelopathy or radiculopathy, cervical region (principal); Z98.1 Arthrodesis status
CPT/HCPCS: 72156

== ENCOUNTER → 2019-07-19 | Outpatient (CLI) | payer OTHER ==
--- NOTE | 2019-07-19 12:19 | CT ---
EXAMINATION TYPE: CT chest wo con DATE OF EXAM: 07/19/2019 COMPARISON: CT 01/15/2019 HISTORY: Previous abnormal exam, pulmonary nodule CT DLP: 327.6 mGycm. Automated Exposure Control for Dose Reduction was Utilized. TECHNIQUE: CT scan of the thorax is performed without IV contrast. FINDINGS: LUNGS: The lungs are stable, there is no concerning parenchymal mass or nodule identified. The minute nodular density seen on prior exam at the level of the fissure is stable and measures only approxima tely 3 to 4 mm. There is no pleural effusion or pneumothorax seen. The tracheobronchial tree is villavicencio nt. MEDIASTINUM: Lack of IV contrast is noted to limit evaluation for mediastinal and especially hilar ad enopathy. There are no definitive greater than 1 cm hilar or mediastinal lymph nodes. No cardiomega ly or pericardial effusion is seen. There are dense coronary artery calcifications present. OTHER: No additional significant abnormality is seen. IMPRESSION: Stable exam. Nodule in right lung is likely benign.
== END | disposition home or self-care (01) ==
LOC: RADCTMAIN 10:51
PROVIDERS: ATTEND Family Medicine
DX: R91.8 Other nonspecific abnormal finding of lung field (principal); R91.1 Solitary pulmonary nodule
CPT/HCPCS: 71250

== ENCOUNTER → 2019-08-07 | Outpatient (CLI) | payer OTHER ==
--- NOTE | 2019-08-07 15:50 | NM ---
EXAMINATION TYPE: NM bone scan whole body DATE OF EXAM: 08/07/2019 COMPARISON: NONE HISTORY: Neck pain low back pain Delayed whole-body scanning was performed following the injection of 24 mCi Tc 99m MDP. Images acqui red 3.5 hours post injection. FINDINGS: No suspicious radiotracer accumulation within the axial or appendicular skeleton is evident. IMPRESSION: Normal whole body bone scan
== END | disposition home or self-care (01) ==
LOC: RADNMMAIN 10:30
PROVIDERS: ATTEND Family Medicine
DX: M54.5 Low back pain (principal); M54.2 Cervicalgia
CPT/HCPCS: 78306; A9503

== ENCOUNTER → 2019-10-31 | Outpatient (CLI) | payer OTHER ==
--- NOTE | 2019-10-31 11:35 | MR ---
EXAMINATION TYPE: MR lumbar spine wo/w con DATE OF EXAM: 10/31/2019 COMPARISON: NONE HISTORY: LBP, max leg numbness x 2 mos TECHNIQUE: T1 and T2 axial and sagittal images of the lumbar spine are submitted. FINDINGS: There is no abnormal signal seen within the visualized spinal cord or paraspinal soft tissu es. Heterogeneous marrow signal is nonspecific. Simple appearing right renal cyst noted. At T12-L1 there is a. Mild central left paracentral disc bulging but no focal herniation, canal steno sis, or foraminal encroachment. At L1-2 there is mild degenerative disc disease and broad-based disc bulging or protrusion centrally and paracentrally to left with mild effacement of thecal sac. There is moderate left foraminal encroa chment. Mild right foraminal encroachment and mild central stenosis. At L2-3 there is degenerative disc disease with broad-based central disc bulging slightly greater par acentrally to left with mild effacement of thecal sac but no focal herniation or canal stenosis. Mild facet arthropathy. Neural foramina remain patent. At L3-4 there is degenerative disc disease with broad-based central disc bulging but no canal stenosi s. There is facet arthropathy. Neural foramina patent. No focal herniation. At L4-5 there is a broad-based central disc protrusion or small herniation with moderate effacement o f thecal sac. There is facet arthropathy. There is moderate to severe right foraminal encroachment an d moderate left foraminal encroachment. Moderate canal stenosis. At L5-S1 there is severe degenerative disc disease with a large central and left paracentral disc her niation. There is compression of the exiting left nerve root. There is severe bilateral foraminal enc roachment. IMPRESSION: 1. Large central and left paracentral disc herniation L5-S1 with compression of the thecal sac and ex iting left nerve root. Severe bilateral foraminal encroachment. 2. Broad-based disc protrusion or herniation L1-L2 with effacement of thecal sac and moderate left fo raminal encroachment. 3. Broad-based central disc protrusion or small herniation L4-L5 with effacement of thecal sac. Moder ate to severe right foraminal encroachment and moderate left foraminal encroachment with moderate demar tral stenosis. 4. Degenerative disc disease and disc bulging L2-3 and L3-L4. 5. nonspecific heterogeneous marrow changes. 6. Nonspecific nodularity to the left adrenal gland measuring 1 cm stable from the CT scan of 01/16/20 19.
== END | disposition home or self-care (01) ==
LOC: RADMRIMAIN 09:00
PROVIDERS: ATTEND Family Medicine
DX: M51.17 Intervertebral disc disorders with radiculopathy, lumbosacral region (principal); M51.16 Intervertebral disc disorders with radiculopathy, lumbar region; G58.9 Mononeuropathy, unspecified
CPT/HCPCS: 72158; A9585

== ENCOUNTER → 2020-06-26 | Outpatient (CLI) | payer OTHER ==
--- NOTE | 2020-06-26 11:13 | CT ---
EXAMINATION TYPE: CT chest w con DATE OF EXAM: 06/26/2020 COMPARISON: CT chest 07/19/2019 and 01/15/2019 HISTORY: follow up lung nodule CT DLP: 374.8 mGycm Automated exposure control for dose reduction was used. CONTRAST: CT scan of the chest is performed with IV Contrast, patient injected with 100 mL of Isovue 300. FINDINGS: LUNGS: Lungs are grossly clear. There is an unchanged round solid right lower lobe 4 mm pulmonary nod ule (4:29, 7:40). No pleural effusion. No pneumothorax. The tracheobronchial tree is patent. MEDIASTINUM/SOFT TISSUES: No axillary, hilar, or mediastinal lymphadenopathy greater than 1 cm. Cardi ac size is normal. Calcified coronary artery disease. No pericardial effusion. No thoracic aortic ane urysm. UPPER ABDOMEN: Somewhat thickened appearance of the left adrenal gland is unchanged versus 01/15/2019 comparison. OSSEOUS: No acute osseous abnormality. Cervical spine fixation hardware. IMPRESSION: 1. Right lower lobe 4 mm pulmonary nodule is unchanged over 18 months. Findings are most likely benig n. Per Fleischner 2017 guidelines, no additional follow-up is necessary. 2. Calcified coronary artery disease.
== END | disposition home or self-care (01) ==
LOC: RADCTMAIN 08:07
PROVIDERS: ATTEND Thoracic Surgery (Cardiothoracic Vascular Surgery)
DX: R91.1 Solitary pulmonary nodule (principal); I25.10 Atherosclerotic heart disease of native coronary artery without angina pectoris
CPT/HCPCS: 71260; Q9967

== ENCOUNTER → 2020-11-17 | Outpatient (CLI) | payer OTHER ==
[2020-11-17 21:36] LABS: Calcium 9.9 mg/dL (8.7-10.3)
== END | disposition home or self-care (01) ==
LOC: LABWHC1 13:31
PROVIDERS: ATTEND Psychiatry & Neurology Pain Medicine
DX: E55.9 Vitamin D deficiency, unspecified (principal)
CPT/HCPCS: 36415; 82306; 82310

== ENCOUNTER → 2022-07-07 | Outpatient (CLI) | payer OTHER | END | disposition home or self-care (01) | LOC: LABPAT 07:29 | PROVIDERS: ATTEND Orthopaedic Surgery | DX: Z01.812 Encounter for preprocedural laboratory examination (principal); Z22.322 Carrier or suspected carrier of Methicillin resistant Staphylococcus aureus | CPT/HCPCS: 86850; 86900; 86901; 87070 ==

== ENCOUNTER 2023-01-10 10:52 | Inpatient (IN) | payer MEDICARE, OTHER ==
[2023-01-03 23:06] LABS: Basophils # (A) 0.07 X 10*3/uL (0.00-0.10); Basophils % (A) 0.9 %; Eosinophils # (A) 0.32 X 10*3/uL (0.04-0.35); Eosinophils % (A) 4.2 %; HCT 45.8 % (39.6-50.0); HGB 15.7 g/dL (13.0-17.0); Immature Grans, Automated 0.4 %; Lymphocytes # (A) 2.64 X 10*3/uL (0.90-5.00); Lymphocytes % (A) 34.9 %; MCH 31.7 pg (27.0-32.0); MCHC 34.3 g/dL (32.0-37.0); MCV 92.3 fL (80.0-97.0); Mean Platelet Volume 9.6 fL (9.5-12.2); Monocytes # (A) 0.43 X 10*3/uL (0.20-1.00); Monocytes % (A) 5.7 %; NRBC Per 100 WBC 0 /100 WBCS (0.0-0.0); Neutrophils # (A) 4.08 X 10*3/uL (1.80-7.70); Neutrophils % (A) 53.9 %; Platelet Count 248 X 10*3/uL (140-440); RBC 4.96 X 10*6/uL (4.40-5.60); RDW 13.2 % (11.5-14.5); WBC 7.57 X 10*3/uL (4.50-10.00)
[2023-01-03 23:11] LABS: African American GFR (CKD) 134.5 (60.0-200.0); Anion Gap 9.9 mmol/L (10.00-18.00); BUN/Creat Ratio 25.27 Ratio (12.00-20.00); Blood Urea Nitrogen 13.8 mg/dL (9.0-27.0); Calcium 9.7 mg/dL (8.7-10.3); Potassium 4.6 mmol/L (3.5-5.5)
[2023-01-03 23:14] LABS: INR 0.93 (0.90-1.11); Prothrombin Time 10.5 sec (9.9-11.9)
--- NOTE | 2023-01-10 06:54 | P.HPOR ---
History of Present Illness H&P Date: 01/04/23 [facility] H&P Age: 57 year Height: 5'7" Weight: 196 lbs BP:123/86 BMI: 30.70 kg/m2 Occupation: Retired VAS: 8 CHIEF COMPLA INT: Pre operative appointment DOI:Chronic DOS:07/14/2022 Post Op Week: 5 months HISTORY: Mr. Burns returns to the office for a pre-operative appointment regarding their lumbar (L2-S1) Revision decompression with revision (L4-S1) fusion Patient reports increasing lumbar pain primarily about the superior portion of the left buttock that radiates across into the contralateral side. With this he notes that his symptoms have worsened and is seeing increasing pain that is causing gait instability and dysfunction. Furthermore he notes that did have a fall after a sharp pain in the left side. Overall he notes that his symptoms have continued to worsen and is having significant difficulty completing most of his daily activities. Mr. Burns notes that their symptoms are exacerbated with standing, ambulation, and any flexion/extension/twisting, but this is well controlled with heat/ice, medications, and rest all without relief of his symptoms. Patient is having severe sleep disturbances as well. For their symptoms, the patient has been taking Flexeril, Gabapentin, and Larrabee 10/325mg all with mild relief of his symptoms. Otherwise the patient is very happy with t he progress they have made and have no acute concerns at this time. Patient denies any f/c/sob/cp, no incision concerns, no bladder or bowel retention/incontinence, no perineal numbness/tingling, and ambulates with a cane. Mr. Burns last returned to the office on 09/09/22 for a post-operative ev aluation following their L1-L2 laminectomy with microdiscectomy . Patient reports no changes to his pain or symptoms since the time of their last appointment. Overall the patient has seen continued left sided lumbar pain extending through the left lower extremity. His symptoms are exacerbated with p rolonged standing and ambulation which is making the completion of his daily tasks very challenging. Mr. Narayaninois taking Larrabee and Gabapentin with mild relief. Patient is having severe sleep disturbances as well. Otherwise the patient is very happy with the progress they have made and have no acute concerns at this time. Patient denies any f/c/sob/cp, no incision concerns, no bladder or bowel retention/incontinence, no perineal numbness/tingling, and ambulates independently. Mr. Burns returns to the office on 08/29/2022 to review the results of a recent MRI of the lumbar spine. Patient reports no changes from his symptoms since previous visit. patient continues to have aching and a sharp lumbar pain that is radiating to his left anterior thigh down the lateral portion of his left lower extremity into his foot, associated with numbness and tingling. MRI results reviewed, care options discussed with patient and his spouse. Patient is continuing to take Larrabee, gabapentin, and Flexeril. He currently denies any f/c/sob/cp, no incision concerns, no bladder or bowel retention/incontinence, no perineal numbness/tingling, and ambulates independently. Mr. Burns returns to the office 08/25/22 for a 6 week post-operative evaluation following their L1-L2 Microdiscectomy . Patient reports aching and sharp lumbar pain since the time of their last appointment. Patient reports that he was ambulating through the grocery store and felt a "popping" in his low back. Patient states he then became very pale and sweaty, in which a customer that was near the patient had to catch patient from falling. They had believed patient to be having a heart attack at first. Patient had a very sharp pain in his lower back that radiated to his left lower extremity, associated with numbness/tingling and weakness. Mr. Burns notes that their symptoms are exacerbated with any activity. Patient is having moderate sleep disturbances as well. For their symptoms, the patient has been taking Larrabee, gabapentin, and flexeril. He currently denies any f/c/sob/cp, no incision concerns, no bladder or bowel retention/incontinence, no perineal numbness/tingling, and ambulates indep endently. Mr. Burns returns to the office on 07/28/2022 for his first a post-operative evaluation following their L1-L2 laminectomy with microdiskectomy. Patient reports decreasing lumbar pain since the time of their procedure. Overall the patient has seen improving functionality but does report some continued mild radicular pain into the right buttock and lower extremity diffusely. Patient does however note that this is improved from before surgery and denies any left lower extremity symptoms. Mr. Burns notes that their symptoms are exacerbated with prolonged standing and ambulation, but this is well controlled with rest and medications. Patient is having mild sleep disturbances as well. For their symptoms, the patient has been taking Gabapentin, Flexeril, and Larrabee 10/325mg all with relief of his symptoms. Otherwise the patient is very happy with the progress they have made and have no acute concerns at this time. Patient denies any f/c/sob/cp, no incision concerns, no bladder or bowel retention/incontinence, no perineal numbness/tingling, and ambulates i ndependently. The patient's past medical history; past surgical history; family history; medicines; allergies and social history have been reviewed and are as stated elsewhere in the chart. 16 points review of systems completed and as stated in HPI, all other systems reviewed are negative. PHYSICAL EXAM: -Patient is alert and oriented 3 appears well-nourished well-hydrated is in no acute distress. They do not appear septic. -On exam the patient has no tenderness to palpation of their thoracic or lumbar spine. There is no edema or ballottement sign. -Upper extremities show 5/5 strength in all major muscle groups. -Lower extremities with 4+ out of 5 strength in all major muscle groups. Furthermore there is significant TTP about the midline of the lumbar region with left lower extremity dermatomal deficits about the L2-3 region. Overall functional testing is very limited due to pain at this time. Patient ambulating with the use of a walker and overall unsteady on his feet. -There is FROM that is painless of the b/l UE and LE in all major joints. -They are intact to light touch sensation in L2 to S1 nerve distribution as well as the C5-T1 distribution. -DTRs 2/4 all upper and lower -Patient has palpable distal pulses in all four extremities -Compartments are soft and compressible. -Neg Hernández's -No Clonus -Neg Babinski -Neg Miah's -No tensioning signs. -Cranial nerves II through XII are grossly intact. -Overall alignment is well-maintained in the sagittal coronal planes. Surgical incision: Looks good, no sign of any infection, no drainage, EEE, edema, or ecchymosis. No fevers or chills. RADIOGRAPHS: MRI scan [facility] from 08/25/2022 of Lumbar Spine: Post surgical changes noted L1-2 and L4-S1. ASD L3-4. Some residual stenosis L1-2 with spondylosis, No fractures. No lesions. Liekly pseudoarthrosis L5-S1 noted with marrow changes. No fracture. ASSESSMENT: 1. S/P L1-L2 laminectomy with microdiskectomy 2. L2-S1 spondylosis with stenosis 3. Adjacent segment disease L3-L4 4. S/P L4-S1 fusion 5. L4-S1 pseudoarthrosis PLAN: All options were reviewed today, we decided the best course of action would be: - Advised patient to continue with supplements, health maintenance, and home exercise programs. Patient expressed understanding and will continue with these modalities. - I discussed treatment options with the patient, including operative and non- operative options, and they have elected to proceed with the following surgical procedure: lumbar (L2-S1) Revision decompression with revision (L4-S1) fusion The indications, risks, benefits, and alternatives to surgery were discussed with the patient at length. Specifically (but not limited to) the risks of infection, stiffness, recurrence of symptoms, need for revision surgery, local numbness, neurovascular injury, and blood clots were discussed. The patient's questions were answered. The decision to proceed was made. Consent will be obtained for the procedure. Spine Surgery Risk Review Mr. uBrns is presenting for evaluation of low back pain. It was my pleasure to have seen and examined Mr. Burns. In our visit today we have had a chance to go over subjective complaints, physical examination findings and treatments including the natural course history without intervention and various interventional options. The patients imaging demonstrates: MRI scan [facility] from 08/25/2022 of Lumbar Spine: Post surgical changes noted L1-2 and L4-S1. ASD L3-4. Some residual stenosis L1-2 with spondylosis, No fractures. No lesions. Liekly pseudoarthrosis L5-S1 noted with marrow changes. No fracture. On physical exam, Mr. Burns demonstrates lower extremities with 4+ out of 5 strength in all major muscle groups. Furthermore there is significant TTP about the midline of the lumbar region with left lower extremity dermatomal deficits about the L2-3 region. Overall functional testing is very limited due to pain at this time. Patient ambulating with the use of a walker and overall unsteady on his feet. I have explained to the patient that as their condition progresses it will cause further neurological deficits and eventual paralysis. Based on the patients imaging, physical exam, and the rapid progression and disabling nature of their symptoms, at this time I recommend surgery in the form or a: lumbar (L2-S1) Revision decompression with revision (L4-S1) fusion. I discussed the risk and benefits of this procedure at length with Mr. Burns. The patient agreed to considered pursuing the procedure abovementioned. Prior to surgery, she should follow up with her PCP (Cardio, ID, IM etc) for clearance. Questions were inv ited and answered, and the patient wishes to proceed as outlined below. Currently, I am recommendin. lumbar (L2-S1) Revision decompression with revision (L4-S1) fusion 2.Follow up with PCP for surgical clearance 3.Review of surgical risks and benefits as well as an educational packet on the proposed surgical procedure. Risks: All surgical procedures come with inherent risks, including those related to pos itioning, anesthesia, intraoperative findings, and postoperative complications. It is important to understand that surgery does not come with any guarantee of a successful outcome as complications and adverse events are always possible. The patient was given a handout in office today discussing the surgical procedure and risks associated with the intervention, both of which were discussed with the patient. These risks include but are not limited to the following: * Experiencing same, different or even worse symptoms in back, neck, arms, or legs compared to before surgery. Requiring further surgery or other forms of treatment presently or at some time in the future at same or other levels of the intended spine surgery. On an extreme but fortunately relatively rare basis severe complication such as blindness, stroke, heart attack, temporary and/or permanent nerve injur y, paralysis, coma, or may occur, sometimes without known explanation. Surgical complications may include but are not limited to risk of infection, fluid accumulation in the surgical dissection site, including a seroma or hematoma, that requires additional surgery, wound drainage, bleeding, new numbness or weakness, vision changes/loss, spinal fluid leakage, non-healing and/or infected incision, headaches, difficulty or inability to swallow, hoarseness, hemopneumothorax, pneumothorax, impotence, retrograde ejaculation, vaginal dryness; injury to nerves, spinal cord, blood vessels, lymphatics or other vital organs (i.e., bowel injury, injury to the great vessels); heterotopic bone formation; complications related to the hardware such as screws, rods, cages including misplaced hardware, device failure, instrumentation at the wrong spine level, hardware fracture/breakage, or morgan dware loosening; vertebral failure of the spinal column above or below the newly placed hardware; retained surgical instrumentations or devices and the need for further surgery. * Medical risks of the planned spine surgery include but are not limited to generalized Infections to the whole body or local areas outside of the surgical site (sepsis), heart attack, bleeding, anaphylaxis, meningitis, seizure, epilepsy, hearing loss, burn diaz, laceration of the head or other areas of the body, bruising, hypersensitivity of the skin, bladder over distension; allergic reaction; shoulder injury related to positioning; fat, blood and air clots to other areas of the body like heart, lungs, brain; failure of internal organs such as lungs, kidneys, liver and excessive bleeding. If blood transfusions are necessary, note that transfusions may cause intolerance reactions such as anaphylaxis or other complex reactions. Despite best efforts, the results of spine surgery might not heal in terms of bone, soft tissues such as skin, fascia, ligaments, and joints. Additionally, in order to achieve best possible results, spine surgery may be carried out beyond the initially planned levels and involve decompression, fusion including insertion of hardware at levels other than the original intended area of surgical interest change some portions of the procedure in order to ensure the best possible outcomes. With spine surgery and spinal fusion, there are different off label uses of instrumentation (devices, implants and hardware) as well as biological substances (bone morphogenic proteins, demineralized bone matrix) as well as using extra bone from allograft sources (i.e. cadaver bone) or autograft (iliac crest bone, ribs, or the spine itself). The patient has been given information about these practices and their inherent risks and benefits. [facility] is an educational center that serves as a training facility for neurosurgical and orthopedic [employer] and Nursing students. Physician assistants are medically trained surgical providers who function in the outpatient, [facility], and operating room setting under the direct supervision of the attending surgeon. [facility] has multiple operating rooms with single and overlapping rooms running daily. They currently function under the required guidelines as produced by the [facility] with regards to the overlapping rooms and will continue to comply with changes to this policy as they occur. The requirements include and are complied with as follows: (1) the critical portions of the overlapping rooms will not occur at the same time, (2) the attending physician will be physically present during the critical portions of the procedure and immediately available during the entire case, and (3) a back-up attending is designated should the primary attending not be immediately available. The patient has had a chance to review all the listed information, has been given print outs detailing this information, and has had all his/her questions answered to their satisfaction. It was my pleasure to have seen and examined Mr. Burns. In our visit today we have had a chance to go over my understanding of our patient's current condition, the natural course history without intervention and various interventional options. Questions were invited and answered, and the patient wishes to proceed as outlined above. I have seen and examined the patient for 25 minutes and we have spent more than 50% of the time in repeat and detailed counseling about the patient's condition, its natural course history with out and as much as can be predicted with surgery and re-review of various surgical treatment options. In conclusion, Mr. Burns requested we proceed with the above suggested surgery and are willing to accept risks and limitations of the suggested surgery as nature of the disease process and our best attempts at treatment for the condition. Thank you again for allowing us to be part of your patient's care. Please don't hesitate to contact me if you have any further questions. FOLLOW-UP Post procedure Pt Education (Informational booklet, instructions, etc) given at today's appointment: Yes .ED:Patient Education: Y Medications Reviewed: YES Attestation: In our visit today Mr. Burns and I have had a chance to go over my understanding of the patient's current condition, the natural course history without intervention and various interventional options. Questions were invited and answered, and the patient wishes to proceed as outlined above. I will be sure to keep you updated afterMr. Burns returns here for further follow-up. Thank you again for your referral. Please do not hesitate to contact me if you have any further questions. Signed and authenticated by: B[facility] [address] [facility], [address] [address] This message is confidential, intended only for the named recipient(s) and may contain information that is privileged or exempt from disclosure under applicable law. If you are not the intended recipient(s), you are notified that the dissemination, distribution or copying of this information is strictly prohibited. If you received this message in error, please notify the sender then delete this message. Patient verbalizes understanding of the information discussed. The above note was initiated by Ninoska Méndez, physician recording senior court office assistant for Dr. Brayan Don. This note has been reviewed by Dr. Don, who has made his personal changes and impressions for this document. CC: Raul Leblanc M.D. # SIGNED BY Brayan Don ([facility])01/09/2023 10:21AM # REVISED BY Brayan Don ([facility])01/10/2023 06:52AM Past Medical History Past Medical History: GERD/Reflux, Hyperlipidemia, Hypertension, Musculoskeletal Disorder, Osteoarthritis (OA) Additional Past Medical History / Comment(s): DDD, "PALPITATIONS", "ASBESTOS EXPOSURE IN HIS LINE OF WORK", possible sleep apnea-but no sleep study done yet History of Any Multi-Drug Resistant Organisms: None Reported Past Surgical History: Back Surgery, Heart Catheterization, Orthopedic Surgery Additional Past Surgical History / Comment(s): EPIDURAL PAIN SHOTS, DECOMPRESSION NECK C6-7 neck fusion, RT ROTATOR CUFF. COLONOSCOPY/POLYPECTOMY, back surg. x2, L5-S1 fusion, cage L4-L5, microdiscectomy Past Anesthesia/Blood Transfusion Reactions: No Reported Reaction Smoking Status: Current every day smoker - Past Family History Father Family Medical History: Cancer Additional Family Medical History / Comment(s): PANCREATIC CANCER. Mother Family Medical History: No Reported History Additional Family Medical History / Comment(s): "HEALTHY" Medications and Allergies Home Medications Medication Instructions Recorded Confirmed Type Atorvastatin Calcium [Lipitor] 80 mg PO QAM 07/12/22 01/04/23 History Fenofibrate Nanocrystallized 145 mg PO QAM 07/12/22 01/04/23 History [Fenofibrate] HYDROcodone/APAP 10-325MG [Larrabee 1 tab PO TID 07/12/22 01/04/23 History 10-325] atenoloL [Tenormin] 50 mg PO QAM 07/12/22 01/04/23 History Gabapentin 300 mg PO TID #90 cap 07/14/22 01/04/23 Rx Cyclobenzaprine [Flexeril] 10 mg PO TID PRN 01/04/23 01/04/23 History Pantoprazole [Protonix] 40 mg PO DAILY 01/04/23 01/04/23 History Allergies Allergy/AdvReac Type Severity Reaction Status Date / Time No Known Allergies Allergy Verified 01/04/23 14:52 Physical Examination Osteopathic Statement: *. No significant issues noted on an osteopathic structural exam other than those noted in the History and Physical/Consult. Results - Labs Labs: H & H 01/03/23 Range/Units 14:53 Hgb 15.7 (13.0-17.0) g/dL Hct 45.8 (39.6-50.0) % Coagulation 01/03/23 Range/Units 15:01 INR 0.93 (0.90-1.11) Result Diagrams: 01/03/23 14:53 01/03/23 14:53
[~2023-01-10 10:52] MED LIST: ACETAMINOPHEN TAB 500 MG TAB PO PRN; GABAPENTIN 300 MG CAP PO PRN; TRANEXAMIC ACID IN NACL,ISO-OS 1,000 MG in SALINE 1 100ML.BAG IVPB PRN; fentaNYL (PF) 50 MCG/ML 2 ML AMP IV PRN
[2023-01-10] MEDS: LACTATED RINGERS 1,000 ML IV SCH ×2 (11:34→20:47)
[2023-01-10] MEDS: ONDANSETRON 4 MG/2 ML VIAL IVP PRN ×3 (11:42→11:56)
[2023-01-10] MEDS ORDERED: fentaNYL (PF) 50 MCG/1 ML VIAL IVP ONE ×2 (11:53→12:02)
[2023-01-10] MEDS ORDERED: MIDAZOLAM 2 MG/2 ML VIAL IVP ONE (11:53)
--- NOTE | 2023-01-10 12:32 | P.ANPRN ---
Procedure Note - Anesthesia - Invasive Line Right Central Line Time Out Performed: Yes (1153) Date of Procedure: 01/10/23 Time of Procedure: 11:54 Location of Patient: PreOp Preparation: Sterile Prep, Sterile Dressing Central Line Location: Internal Jugular (RIGHT TRIPLE LUMEN) Ultrasound Used: Yes Purpose - Visualization and Identification of Vasculature: Yes Needle Guage: 18G ANGIO Image Stored and Saved: Yes Narrative: Central line placement per sterile protocol utilized. +LOCAL +CVP +ANGIO +UNEVENTFUL DILATION AND INTRODUCTION RIGHT ij TLC. Lumens bled and flushed.
--- NOTE | 2023-01-10 12:36 | XR ---
EXAMINATION TYPE: XR chest 1V confirm line [facility] DATE OF EXAM: 01/10/2023 COMPARISON: 03/08/2018 INDICATION: Central line placement TECHNIQUE: Single frontal view of the chest is obtained. FINDINGS: The heart size is normal. The pulmonary vasculature is normal. The lungs are clear. No pneumothorax is evident. Right-sided central venous catheter placement is evident with the tip in the superior vena cava region. IMPRESSION: 1. No pneumothorax post right central venous catheter placement. Tip is within the distal superior ve na cava region.
[2023-01-10] MEDS ORDERED: ROCURONIUM 10 MG/ML (5 ML VIAL) IV ONE (13:04)
[2023-01-10] MEDS ORDERED: fentaNYL (PF) 50 MCG/ML 2 ML AMP ONE (13:04)
[2023-01-10] MEDS ORDERED: KETAMINE 10 MG/ML 20 ML VIAL ONE (13:04)
[2023-01-10] MEDS ORDERED: SUCCINYLCHOLINE CHLORIDE 200 MG/10 ML VIAL IV ONE (13:04)
[2023-01-10] MEDS ORDERED: TRANEXAMIC ACID IN NACL,ISO-OS 1,000 MG/100 ML BAG ONE (13:04)
[2023-01-10] MEDS ORDERED: LIDOCAINE 2% INJ 20 MG/ML (2 ML VIAL) ONE (13:04)
[2023-01-10] MEDS ORDERED: PHENYLEPHRINE-0.9% NACL SYG 1,000 MCG/10 ML SYRINGE ONE (13:04)
[2023-01-10] MEDS ORDERED: HYDROmorphone (PF) 1 MG/ML ONE (13:04)
[2023-01-10] MEDS ORDERED: PROPOFOL 10 MG/ML 20 ML VIAL IV ONE (13:04)
[2023-01-10] MEDS ORDERED: LACTATED RINGERS 1,000 ML IV ONE ×3 (13:54→16:54)
[2023-01-10] MEDS ORDERED: GELATIN SPONGE,ABSORB (LARGE) 1 EACH SPONGE TOPICAL ONE (13:56)
[2023-01-10] MEDS ORDERED: THROMBIN (BOVINE) 5,000 UNIT VIAL TOPICAL ONE ×2 (13:57→16:07)
[2023-01-10] MEDS ORDERED: ceFAZolin 3,000 MG in SODIUM CHLORIDE 0.9% IRRIGATIO 3,000 ML IRRIGATION ONE (13:57)
[2023-01-10] MEDS ORDERED: GENTAMICIN 80 MG in SODIUM CHLORIDE 0.9% IRRIGATIO 3,000 ML IRRIGATION ONE (13:59)
[2023-01-10] MEDS ORDERED: VANCOMYCIN 1,000 MG VIAL MISCELLANE ONE (16:55)
[2023-01-10] MEDS ORDERED: HYDROcodone/APAP 5-325MG 1 EACH TAB PO PRN (17:54)
[2023-01-10] MEDS ORDERED: SENNOSIDES-DOCUSATE SODIUM 1 EACH TAB PO PRN (17:54)
[2023-01-10] MEDS ORDERED: HYDROmorphone 0.5 MG/0.5 ML SYRINGE IVP PRN (17:54)
[2023-01-10] MEDS ORDERED: MAGNESIUM HYDROXIDE 2,400 MG/10 ML CUP PO PRN (17:54)
[2023-01-10] MEDS: HYDROmorphone 0.5 MG/0.5 ML SYRINGE IVP PRN ×4 (18:29→21:14)
--- NOTE | 2023-01-10 19:02 | FL ---
Intraoperative/procedural fluoroscopic services were provided. Total fluoroscopy time is 1 minute 13 seconds with a total of 7 submitted images to PACS. Please see the operative/procedural note for furt her details. DAP: [id number]
[2023-01-10] MEDS: HYDROcodone/APAP 10-325MG 1 EACH TAB PO PRN (19:48)
[2023-01-10] MEDS: HYDROmorphone 1 MG/ML 1 ML SYRINGE IVP PRN ×2 (19:49→22:39)
[2023-01-10] MEDS: CYCLOBENZAPRINE 10 MG TAB PO PRN (19:49)
[2023-01-10] MEDS: ACETAMINOPHEN TAB 325 MG TAB PO SCH (20:47)
[2023-01-10] MEDS: GABAPENTIN 300 MG CAP PO SCH (21:14)
[2023-01-11] MEDS: HYDROcodone/APAP 10-325MG 1 EACH TAB PO PRN (01:14)
[2023-01-11] MEDS: HYDROmorphone 1 MG/ML 1 ML SYRINGE IVP PRN ×8 (01:15→21:57)
--- NOTE | 2023-01-11 01:22 | P.CONS ---
History of Present Illness - Reason for Consult Consult date: 01/10/23 post op medical follow up Requesting physician: Brayan Don - Chief Complaint L3 spinal fusion - History of Present Illness 57 year old male with hypertension , hyperlipidemia , chronic low back pain patient coming in for scheduled surgery of his lower back , this is his 3rd surgery since an injury many years ago. he tolerated procedure well, still reports symptoms of chronic lower extremity radiculopathy , pain is controlled , denies any chest pain or trouble breathing denies any nausea or vomiting Review of Systems Pertinent positives as noted in HPI. All other systems were reviewed and are negative Past Medical History Past Medical History: GERD/Reflux, Hyperlipidemia, Hypertension, Musculoskeletal Disorder, Osteoarthritis (OA) Additional Past Medical History / Comment(s): DDD, "PALPITATIONS", "ASBESTOS EXPOSURE IN HIS LINE OF WORK", possible sleep apnea-but no sleep study done yet History of Any Multi-Drug Resistant Organisms: None Reported Past Surgical History: Back Surgery, Heart Catheterization, Orthopedic Surgery Additional Past Surgical History / Comment(s): EPIDURAL PAIN SHOTS, DECOMPRESSION NECK C6-7 neck fusion, RT ROTATOR CUFF. COLONOSCOPY/POLYPECTOMY, back surg. x2, L5-S1 fusion, cage L4-L5, microdiscectomy Past Anesthesia/Blood Transfusion Reactions: No Reported Reaction Past Psychological History: No Psychological Hx Reported Additional Psychological History / Comment(s): PT IS INDEPENDANT. NO ASSITIVE DEVICES-NO HOSPITAL EQUIPMENT. 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 NO SERVICE IN PAST. LIVES WITH GIRL FRIEND AND 2 DAUGHTERS. A CHOCLATE LAB NAMED [employer], A CAT NAMED MICHELE AND A GOLD FISH NAMED KENIA. HAS 3 STEPS INTO HOME. 2 STORY HOME-HAS 15 STAIRS TO UPPER LEVEL. Smoking Status: Current every day smoker Past Alcohol Use History: None Reported Additional Past Alcohol Use History / Comment(s): STARTED SMOKING AT AGE 18, SMOKES 1 PPD down to 6 cigs/day, trying to quit Past Drug Use History: None Reported - Past Family History Father Family Medical History: Cancer Additional Family Medical History / Comment(s): PANCREATIC CANCER. Mother Family Medical History: No Reported History Additional Family Medical History / Comment(s): "HEALTHY" Medications and Allergies Home Medications Medication Instructions Recorded Confirmed Type Atorvastatin Calcium [Lipitor] 80 mg PO QAM 07/12/22 01/10/23 History Fenofibrate Nanocrystallized 145 mg PO QAM 07/12/22 01/10/23 History [Fenofibrate] HYDROcodone/APAP 10-325MG [[place] 1 tab PO TID 07/12/22 01/10/23 History 10-325] atenoloL [Tenormin] 50 mg PO QAM 07/12/22 01/04/23 History Gabapentin 300 mg PO TID #90 cap 07/14/22 01/10/23 Rx Cyclobenzaprine [Flexeril] 10 mg PO TID PRN 01/04/23 01/10/23 History Pantoprazole [Protonix] 40 mg PO DAILY 01/04/23 01/04/23 History Allergies Allergy/AdvReac Type Severity Reaction Status Date / Time No Known Allergies Allergy Verified 01/10/23 11:14 Physical Exam Vitals: Vital Signs Temp Pulse Resp BP Pulse Ox 01/10/23 21:13 100 127/87 95 01/10/23 20:42 84 115/74 95 01/10/23 20:27 96 113/76 96 01/10/23 20:13 101 H 73/49 93 L 01/10/23 19:57 103 H 100/63 94 L 01/10/23 19:35 98.2 F 100 16 129/79 96 01/10/23 19:16 100 16 96/60 01/10/23 19:01 108 H 15 100/68 91 L 01/10/23 18:45 93 15 95/69 94 L 01/10/23 18:26 95 17 95/69 94 L 01/10/23 18:11 103 H 17 140/100 98 01/10/23 17:56 101 H 16 137/93 100 01/10/23 12:37 69 16 120/80 97 01/10/23 12:21 77 16 143/79 97 01/10/23 12:08 72 16 153/86 01/10/23 11:23 97.0 F L 75 16 141/94 98 Intake and Output 01/10/23 01/10/23 01/11/23 14:59 22:59 06:59 Intake Total 1552 1030 Output Total 1660 Balance 1552 -630 Intake: IV 1552 500 Intake, IV Titration 50 Amount ceFAZolin 2 gm In Sodium 50 Chloride 0.9% 50 ml @ 100 mls/hr IVPB Q8H [facility] Rx#: [id number] Oral 480 Output: Drainage 60 Right Posterior Back 60 Urine 1100 Uretheral (Mcdermott) 800 Estimated Blood Loss 500 Other: Voiding Method Indwelling Catheter Weight 88.451 kg Constitutional: No acute distress, conversant, pleasant Eyes: Anicteric sclerae, moist conjunctiva, Pupils equal round reactive to light ENMT: NC/AT Oropharynx clear, no erythema, or exudates Neck: Supple, no masses, or JVD No carotid bruits No thyromegaly Lungs: Clear to auscultation Clear to percussion Normal respiratory effort, no accessory muscle use Cardiovascular: Heart regular in rate and rhythm, No murmurs, gallops, or rubs No peripheral edema Abdominal: Soft Nontender, no guarding, rebound or rigidity Abdomen moving with respiration Normoactive bowel sounds No hepatomegaly, No splenomegaly No palpable mass No abdominal wall hernia noted Skin: Normal temperature, tone, texture, turgor No induration No subcutaneous nodules No rash, lesions No ulcers Extremities: No digital cyanosis No clubbing Pedal pulses intact and symmetrical Radial pulses intact and symmetrical No calf tenderness Psychiatric: Alert and oriented to person, place and time Appropriate affect fair judgment Neuro Muscles Strength 5/5 in bilateral upper extremity and limited exam over lower extemity as patient is avoiding any movement post surgery Sensation to light touch grossly present throughout Cranial nerves II-XII grossly intact Lymphatics: no palpable cervical or supraclavicular lymph nodes Results CBC & Chem 7: 01/03/23 14:53 01/03/23 14:53 Assessment and Plan Assessment: hypertension , chronic stable resume atenolol 50 mg daily po monitor vital signs hyperlipidemia , chronic stable resume atorvastatin 80 mg po daily s/p L3 spinal fusion post op day zero management per ortho full code DVT PPX mechanical due to spinal surgery follow up CBC and CMP in AM stable from medical stand point thank you for this consultation
[2023-01-11] MEDS: ACETAMINOPHEN TAB 325 MG TAB PO SCH ×5 (01:29→23:23)
[2023-01-11] MEDS: CYCLOBENZAPRINE 10 MG TAB PO PRN (03:12)
[2023-01-11] MEDS: PANTOPRAZOLE 40 MG TABLET PO SCH (05:40)
[2023-01-11 07:29] LABS: ALT 27 U/L (4-49); AST 36 U/L (17-59); African American GFR (CKD) >90 (>60 ml/min/1.73 sqM); Albumin 3.9 g/dL (3.5-5.0); Albumin/Globulin Ratio 1.7; Alkaline Phosphatase 56 U/L (38-126); Anion Gap 10 mmol/L; Blood Urea Nitrogen 14 mg/dL (9-20); Calcium 8.4 mg/dL (8.4-10.2); Carbon Dioxide 24 mmol/L (22-30); Chloride 103 mmol/L (98-107); Globulin 2.3 g/dL; Glucose 133 mg/dL (74-99); Non-African American GFR(CKD) >90 (>60 ml/min/1.73 sqM); Sodium 137 mmol/L (137-145); Total Bilirubin 0.6 mg/dL (0.2-1.3); Total Protein 6.2 g/dL (6.3-8.2)
[2023-01-11 08:09] LABS: Basophils % (A) 0 %; Eosinophils % (A) 0 %; HGB 12.9 gm/dL (13.0-17.5); Lymphocytes # (A) 1.5 k/uL (1.0-4.8); Lymphocytes % (A) 14 %; MCH 31.6 pg (25.0-35.0); MCHC 34.9 g/dL (31.0-37.0); MCV 90.7 fL (80.0-100.0); Mean Platelet Volume 7.7; Monocytes # (A) 0.7 k/uL (0-1.0); Monocytes % (A) 6 %; Neutrophils # (A) 8.9 k/uL (1.3-7.7); Neutrophils % (A) 79 %; Platelet Count 224 k/uL (150-450); RBC 4.08 m/uL (4.30-5.90); WBC 11.2 k/uL (3.8-10.6)
--- NOTE | 2023-01-11 08:46 | P.PN ---
Subjective Progress Note Date: 01/11/23 Principal diagnosis: Lumbar stenosis with pseudoarthritis Patient seen and examined this morning. Patient reports that he had a rough night due to pain management, medications have been adjusted. Patient has not been up since surgery. Hemovac is intact with 155mL output overnight. Patient is unable to perform any bed exercises or turned to assess dressing due to pain. Will reassess patient later today. Patient continues to report pain into bilateral lower extremities. He has been afebrile, denies nausea/vomiting, or chest pain. Objective - Vital Signs Vital signs: Vital Signs Temp 98.1 F 01/11/23 01:13 Pulse 90 01/11/23 01:13 Resp 16 01/11/23 01:13 BP 120/80 01/11/23 01:13 Pulse Ox 95 01/11/23 01:13 FiO2 Intake & Output 01/10/23 01/11/23 01/11/23 18:59 06:59 18:59 Intake Total 2051 1640 Output Total 800 1705 Balance 1252 -65 Weight 88.451 kg Intake: IV 2051 Intake, IV Titration 320 Amount Lactated Ringers 1,000 ml 220 @ 20 mls/hr IV .Q24H [facility] Rx#:[id number] ceFAZolin 2 gm In Sodium 100 Chloride 0.9% 50 ml @ 100 mls/hr IVPB Q8H [facility] Rx#: [id number] Oral 1320 Output: Drainage 155 Right Posterior Back 155 Urine 300 1550 Uretheral (Hubbard) 1350 Estimated Blood Loss 500 Other: Voiding Method Indwelling Catheter - Exam Physical Examination General: The patient is awake and alert, in no acute distress Skin: Skin is warm and dry with no obvious rashes or lesions. Eye: Pupils are equal, round and reactive to light, extra-ocular movements are intact; there is normal conjunctiva bilaterally. Neck: The neck is supple, there is no tenderness and ROM intact. Cardiovascular: There is a regular rate and rhythm. No murmur, rub or gallop is appreciated. Respiratory: Lungs are clear to auscultation, respirations are non-labored, breath sounds are equal. Gastrointestinal: Soft, non-distended, non-tender abdomen. Back: There is no tenderness to palpation in the midline, paralumbar, parathoracic or buttocks region. There is no obvious deformity . Musculoskeletal: ROM limited secondary to pain and stiffness from surgical procedure. Muscle strength in all major muscle groups of bilateral upper extremities 5/5, bilateral lower extremities 4/5. Neurological: CN 2-12 intact. There are no obvious motor or sensory deficits. Movement and coordination equal and intact. Sensory exam to light touch intact C5-T1 and intact from L2-S1. Reflexes 2/4 in bilateral upper and lower extremities. Negative Hoffmans, babinski, and clonus signs. Psychiatric: Cooperative, appropriate mood & affect, normal judgment. - Labs CBC & Chem 7: 01/11/23 06:32 01/11/23 07:00 Labs: Abnormal Lab Results - Last 24 Hours (Table) 01/11/23 Range/Units 07:00 Glucose 133 H (74-99) mg/dL Total Protein 6.2 L (6.3-8.2) g/dL Assessment and Plan Assessment: Postop day 1: Revision decompression L2-S1, revision fusion L4-S1. Lumbar stenosis with pseudoarthritis Plan: -Appreciate business analyst consultant and team management. -Activity: Ambulate QID, OOB all meals, up and about, limit lifting bending twisting to less than 5 lbs. Use walker or cane if needed for stability. -Daily PT/OT, increase ambulation strength and balance. -Brace when up and about, not needed in bed or chair -Pain control: Adequate at this time -Meds: reviewed -GI ppx: senna, Miralax -DC hubbard when up and about, bedside commode if needed -DVT PPX: OK to restart Heparin tonight -Hygiene: Shower today. Maintain dressing clean and dry. Meticulous cleaning after BMs away from the incision site -Drains: Maintain for now. DC later today pending out put and PT -Encourage IS 10x/hr -Dispo: Anticipate discharge home in 48-72hrs with homecare *I reviewed and discussed this case with my attending Dr. Don, whom has reviewed this chart and films and is in agreement with assessment and plan of care as outlined above. I have personally seen and examined the patient, performed the documentation and the assessment and plan as written. Number of minutes spent on the visit: 10m.
[2023-01-11] MEDS ORDERED: DEXAMETHASONE SOD PHOSPHATE 4 MG/ML 1 ML VIAL IVP STA (09:10)
[2023-01-11] MEDS: oxyCODONE-APAP 7.5-325MG 1 EACH TAB PO SCH ×2 (09:16→12:17)
[2023-01-11] MEDS: atenoloL 50 MG TAB PO SCH (09:25)
[2023-01-11] MEDS: SENNOSIDES-DOCUSATE SODIUM 1 EACH TAB PO SCH (09:25)
[2023-01-11] MEDS: GABAPENTIN 300 MG CAP PO SCH ×3 (09:26→21:57)
[2023-01-11] MEDS: CYCLOBENZAPRINE 10 MG TAB PO SCH ×3 (09:26→21:57)
[2023-01-11] MEDS: ATORVASTATIN 80 MG TAB PO SCH (09:26)
--- NOTE | 2023-01-11 11:13 | CT ---
EXAMINATION TYPE: CT lumbar spine wo con DATE OF EXAM: 01/11/2023 10:43 AM COMPARISON: Prior CT lumbar spine December 24, 2017. Prior MRI lumbar spine August 25, 2022 HISTORY: S/P L3-pelvis decompression/fusion CT DLP: 1348.1 mGycm Automated exposure control for dose reduction was used. Unenhanced CT of the lumbar spine was performed. Bone and soft tissue window settings are submitted as well as coronal and sagittal reconstructions. There are now bilateral posterior intrapedicular lori and screws running from L3 levels through the pe lvis with extended fusion bilaterally through the sacroiliac joints into the iliac bones. Metallic di sc material L3-L4 through the L5-S1 levels is now present. The disc position is satisfactory. There are posterior decompression changes with laminectomy defects and spinous process resection runn ing from L1 through the L4 levels. There is subcutaneous and deeper air along with ill-defined fluid extending to the spinal canal. There is some air within the spinal canal frontal reference greatest a t L3-L4 level sagittal image 31. Alignment is stable and satisfactory after surgery. Vertebral body heights and disc space heights above and below surgical levels remain in satisfactory. Fluid and air extends to level of the posterior marginal spinal canal beginning at L1 level on axial images extending to the lower lumbar spine. Axial images show satisfactory positioning of the screws bilaterally, the left lower screw does extend outside the iliac bone into the adjacent deeper glutea l muscle axial image 90 for reference. Incidental low density thickening to both adrenal glands consistent with benign lipid rich hyperplasi a. Sigmoid colonic diverticula are also incidentally noted. IMPRESSION: Postsurgical changes as detailed above. Stable and satisfactory alignment is seen.
--- NOTE | 2023-01-11 14:12 | P.PN ---
Subjective Progress Note Date: 01/11/23 Patient is a 57-year-old male with hypertension, dyslipidemia, and chronic low back pain who presented for elective revision and decompression L2 to S1 with revision fusion L4 to S1. Patient tolerated the procedure well and had no immediate postoperative complications Patient seen and examined at bedside. He complains of back pain. He states that has been in pain all night and that the [place] has been ineffective. He denies any chest pain, shortness breath, lightheadedness, dizziness. He is feeling slightly nauseated with the pain is so bad. Vital signs reviewed General: nontoxic,mild distress due to pain , appears at stated age Cardiovascular: S1S2 reg, no murmur, positive posterior tibial pulse bilateral, Lungs: Decreased bs b/l bilateral, no rhonchi, no rales , no accessory muscle use Abdominal: soft, nontender to palpation, no guarding, no appreciable organomegaly Ext: no gross muscle atrophy, no edema, no contractures Neuro: CN II-XI grossly intact, no focal neuro deficits Psych: Alert, oriented, appears angry Assessment: 57-year-old male status post L2 to S1 revision decompression with revision fusion L4 to S1 Intractable postop pain Acute blood loss anemia, anticipated outcome of surgery Hypertension Dyslipidemia Imaging: Lumbar spine CT-post surgical changes, stable and satisfactory alignment Data Review: A blood cell count 11.2, hemoglobin 12.9, hematocrit 37, glucose 133, protein 6.2 Plan: -Case discussed with orthopedic spine surgery at length. Pain medications were transitioned to Percocet 7.5 at that time. I checked regularly nurse at 2 PM and the Percocet 7.5 was not adequately controlling the patient's pain. I increased his scheduled Percocet to 10 mg every 4 hours. -Continue with atenolol 50 mg daily, Lipitor 80 mg daily, gabapentin 300 mg 3 times daily, Protonix 40 mg daily - Patient will require repeat CBC and CMP in a.m. due to invasive nature of the procedure DVT prophylaxis: Per orthopedic surgery Thank you for allowing us to participate in the care of this pleasant patient. Do not hesitate to contact us with questions. Someone can be reached from the [facility] hospitalist group all hours of the day at [phone] or via perfect serve. This dictation was prepared using [employer] voice recognition software. Though every attempt is made to correct errors during during dictation some may still exist. Objective - Vital Signs Vital signs: Vital Signs Temp 98.4 F 01/11/23 08:01 Pulse 96 01/11/23 08:01 Resp 18 01/11/23 08:01 BP 123/80 01/11/23 08:01 Pulse Ox 91 L 01/11/23 08:01 FiO2 Intake & Output 01/10/23 01/11/23 01/11/23 18:59 06:59 18:59 Intake Total 205 1640 50 Output Total 800 1705 350 Balance 1252 -65 -300 Weight 88.451 kg Intake: IV 2051 Intake, IV Titration 320 50 Amount Lactated Ringers 1,000 ml 220 @ 20 mls/hr IV .Q24H [facility] Rx#:[id number] ceFAZolin 2 gm In Sodium 100 50 Chloride 0.9% 50 ml @ 100 mls/hr IVPB Q8H [facility] Rx#: [id number] Oral 1320 Output: Drainage 155 Right Posterior Back 155 Urine 300 1550 350 Uretheral (Mcdermott) 1350 Estimated Blood Loss 500 Other: Voiding Method Indwelling Catheter Indwelling Catheter - Labs CBC & Chem 7: 01/11/23 06:32 01/11/23 07:00 Labs: Abnormal Lab Results - Last 24 Hours (Table) 01/11/23 01/11/23 Range/Units 06:32 07:00 WBC 11.2 H (3.8-10.6) k/uL RBC 4.08 L (4.30-5.90) m/uL Hgb 12.9 L (13.0-17.5) gm/dL Hct 37.0 L (39.0-53.0) % Neutrophils # 8.9 H (1.3-7.7) k/uL Glucose 133 H (74-99) mg/dL Total Protein 6.2 L (6.3-8.2) g/dL
[2023-01-11] MEDS: oxyCODONE-APAP 10-325MG 1 EACH TAB PO SCH ×3 (15:24→23:23)
[2023-01-12] MEDS: HYDROmorphone 1 MG/ML 1 ML SYRINGE IVP PRN ×7 (00:51→19:51)
[2023-01-12] MEDS: oxyCODONE-APAP 10-325MG 1 EACH TAB PO SCH ×6 (03:51→23:59)
[2023-01-12] MEDS: ACETAMINOPHEN TAB 325 MG TAB PO SCH ×5 (05:39→23:59)
[2023-01-12] MEDS: PANTOPRAZOLE 40 MG TABLET PO SCH (05:39)
--- NOTE | 2023-01-12 07:49 | P.PN ---
Subjective Progress Note Date: 01/12/23 Principal diagnosis: Lumbar stenosis with pseudoarthritis Patient seen and examined this morning. Patient is currently resting comfortably in bed on his left side. Surgical dressing is clean dry and intact with Hemovac present, 0ml output overnight. We will leave drain in today due to inactivity, we may discontinue later today. Patient has not been up since procedure due to pain management. He does report that he feels his pain is better managed and is looking forward to getting up with physical therapy today. LSO brace is at bedside.Hubbard catheter may be removed when patient is up and about. He has been afebrile, denies nausea/vomiting, or chest pain. Objective - Vital Signs Vital signs: Vital Signs Temp 97.6 F 01/12/23 02:01 Pulse 82 01/12/23 02:01 Resp 16 01/11/23 19:58 BP 118/76 01/12/23 02:01 Pulse Ox 90 L 01/12/23 02:01 FiO2 Intake & Output 01/11/23 01/12/23 01/12/23 18:59 06:59 18:59 Intake Total 286 720 Output Total 1310 2300 Balance -1024 -1580 Intake: Intake, IV Titration 50 Amount ceFAZolin 2 gm In Sodium 50 Chloride 0.9% 50 ml @ 100 mls/hr IVPB Q8H [facility] Rx#: [id number] Oral 236 720 Output: Drainage 10 0 Right Posterior Back 10 0 Urine 1300 2100 Uretheral (Hubbard) 2100 Emesis 200 Other: Voiding Method Indwelling Catheter Indwelling Catheter - Exam Physical Examination General: The patient is awake and alert, in no acute distress Skin: Skin is warm and dry with no obvious rashes or lesions. Surgical incision to the lumbar spine, dressing is clean dry and intact with Hemovac present. Eye: Pupils are equal, round and reactive to light, extra-ocular movements are intact; there is normal conjunctiva bilaterally. Neck: The neck is supple, there is no tenderness and ROM intact. Cardiovascular: There is a regular rate and rhythm. No murmur, rub or gallop is appreciated. Respiratory: Lungs are clear to auscultation, respirations are non-labored, breath sounds are equal. Gastrointestinal: Soft, non-distended, non-tender abdomen. Back: There is no tenderness to palpation in the midline, paralumbar, parathoracic or buttocks region. There is no obvious deformity . Musculoskeletal: ROM limited secondary to pain and stiffness from surgical procedure. Muscle strength in all major muscle groups of bilateral upper extremities 5/5, bilateral lower extremities 4/5. Neurological: CN 2-12 intact. There are no obvious motor or sensory deficits. Movement and coordination equal and intact. Sensory exam to light touch intact C5-T1 and intact from L2-S1. Reflexes 2/4 in bilateral upper and lower extremities. Negative Hoffmans, babinski, and clonus signs. Psychiatric: Cooperative, appropriate mood & affect, normal judgment. - Labs CBC & Chem 7: 01/11/23 06:32 01/11/23 07:00 Labs: Abnormal Lab Results - Last 24 Hours (Table) 01/11/23 Range/Units 06:32 WBC 11.2 H (3.8-10.6) k/uL RBC 4.08 L (4.30-5.90) m/uL Hgb 12.9 L (13.0-17.5) gm/dL Hct 37.0 L (39.0-53.0) % Neutrophils # 8.9 H (1.3-7.7) k/uL Assessment and Plan Assessment: Postop day 2: Revision decompression L2-S1, revision fusion L4-S1. Lumbar stenosis with pseudoarthritis Plan: -Appreciate client support consultant and team management. -Activity: Ambulate QID, OOB all meals, up and about, limit lifting bending twisting to less than 5 lbs. Use walker or cane if needed for stability. -Daily PT/OT, increase ambulation strength and balance. -Brace when up and about, not needed in bed or chair -Pain control: Adequate at this time -Meds: reviewed -GI ppx: senna, Miralax -DC hubbard when up and about, bedside commode if needed -DVT PPX: OK to restart Heparin tonight -Hygiene: Shower today. Maintain dressing clean and dry. Meticulous cleaning after BMs away from the incision site -Drains: Maintain for now. DC later today pending out put and PT -Encourage IS 10x/hr -Dispo: Anticipate discharge home in 48-72hrs with homecare *I reviewed and discussed this case with my attending Dr. Don, whom has reviewed this chart and films and is in agreement with assessment and plan of care as outlined above. I have personally seen and examined the patient, performed the documentation and the assessment and plan as written. Number of minutes spent on the visit: 10m.
[2023-01-12] MEDS: CYCLOBENZAPRINE 10 MG TAB PO SCH ×3 (08:19→21:49)
[2023-01-12] MEDS: atenoloL 50 MG TAB PO SCH (08:20)
[2023-01-12] MEDS: ATORVASTATIN 80 MG TAB PO SCH (08:20)
[2023-01-12] MEDS: GABAPENTIN 300 MG CAP PO SCH ×3 (08:20→21:49)
[2023-01-12] MEDS: SENNOSIDES-DOCUSATE SODIUM 1 EACH TAB PO SCH (08:23)
[2023-01-12 08:46] LABS: HCT 37.1 % (39.6-50.0); HGB 12.6 g/dL (13.0-17.0); MCH 31.4 pg (27.0-32.0); MCV 92.5 fL (80.0-97.0); Mean Platelet Volume 9.9 fL (9.5-12.2); NRBC Per 100 WBC 0 /100 WBCS (0.0-0.0); Platelet Count 186 X 10*3/uL (140-440); RBC 4.01 X 10*6/uL (4.40-5.60); RDW 12.9 % (11.5-14.5); WBC 13.54 X 10*3/uL (4.50-10.00)
[2023-01-12 10:45] LABS: African American GFR (CKD) 114.9 (60.0-200.0); Anion Gap 14.8 mmol/L (10.00-18.00); Calcium 9.3 mg/dL (8.7-10.3); Carbon Dioxide 25.2 mmol/L (20.0-27.5); Non-African American GFR(CKD) 99.2 (60.0-200.0); Potassium 4.1 mmol/L (3.5-5.5)
--- NOTE | 2023-01-12 15:03 | P.PN ---
Subjective Progress Note Date: 01/12/23 Patient seen and examined at bedside. Patient states he just doesn't feel well. Patient denies chest pain shortness of breath nausea vomiting fevers or chills. Objective - Vital Signs Vital signs: Vital Signs Temp 98.0 F 01/12/23 12:46 Pulse 83 01/12/23 12:50 Resp 16 01/12/23 12:50 BP 117/79 01/12/23 12:46 Pulse Ox 97 01/12/23 12:46 FiO2 Intake & Output 01/11/23 01/12/23 01/12/23 18:59 06:59 18:59 Intake Total 286 720 Output Total 1310 2300 360 Balance -1024 -3864 -360 Intake: Intake, IV Titration 50 Amount ceFAZolin 2 gm In Sodium 50 Chloride 0.9% 50 ml @ 100 mls/hr IVPB Q8H [facility]PLACED BY [facility] Rx#: [id number] Oral 236 720 Output: Drainage 10 0 Right Posterior Back 10 0 Urine 1300 2100 360 Uretheral (Mcdermott) 2100 360 Emesis 200 Other: Voiding Method Indwelling Catheter Indwelling Catheter Indwelling Catheter - Exam General: [non toxic], [no distress], [appears at stated age] Derm: [warm], [dry] Head: [atraumatic], [normocephalic], [symmetric] Eyes: [EOMI], [no lid lag], [anicteric sclera] Mouth: [no lip lesion], [mucus membranes moist] Cardiovascular: [S1S2 reg], [no murmur], [positive posterior tibial pulse bilateral], Lungs: [CTA bilateral], [no rhonchi, no rales] , [no accessory muscle use] Abdominal: [soft], [ nontender to palpation], [no guarding], [no appreciable organomegaly] Ext: [no gross muscle atrophy], [no edema], [no contractures] Neuro: [ CN II-XI grossly intact], [no focal neuro deficits] Psych: [Alert], [oriented], [appropriate affect] - Labs CBC & Chem 7: 01/12/23 06:29 01/12/23 06:29 Labs: Abnormal Lab Results - Last 24 Hours (Table) 01/12/23 01/12/23 Range/Units 06:29 06:29 WBC 13.54 H (4.50-10.00) X 10*3/uL RBC 4.01 L (4.40-5.60) X 10*6/uL Hgb 12.6 L (13.0-17.0) g/dL Hct 37.1 L (39.6-50.0) % Glucose 125 H (70-110) mg/dL Assessment and Plan Assessment: 57-year-old male status post L2 to S1 revision decompression with revision fusion L4 to S1 Intractable postop pain Acute blood loss anemia, anticipated outcome of surgery Hypertension Dyslipidemia Plan: -Pain medications: Percocet prn pain. -Continue with atenolol 50 mg daily, Lipitor 80 mg daily, gabapentin 300 mg 3 times daily, Protonix 40 mg daily -AM labs ordered DVT prophylaxis: Per orthopedic surgery Thank you for allowing us to participate in the care of this pleasant patient. Do not hesitate to contact us with questions. Someone can be reached from the [facility] hospitalist group all hours of the day at [phone] or via perfect serve.
[2023-01-13] MEDS: oxyCODONE-APAP 10-325MG 1 EACH TAB PO SCH ×3 (03:32→13:57)
--- NOTE | 2023-01-13 03:49 | CONS ---
CONSULTATION CHIEF COMPLAINT: Chronic low back pain with radiculopathy. HISTORY OF PRESENT ILLNESS: This gentleman is being brought in for another spine procedure. He has been having a lot of difficulty with chronic pain and radiculopathy. REVIEW OF SYSTEMS: He has had no headaches, neurologic deficits, chest pain, hemoptysis, abdominal pain, nausea, vomiting, diarrhea, melena, hematochezia, renal failure, diabetes, etc. Past medical history, family history, and personal and social histories are all otherwise found in his admitting summary. He does smoke heavily. PHYSICAL EXAMINATION: VITAL SIGNS: Blood pressure is 142/89 with a pulse of 86, respirations 35, and he is afebrile. GENERAL: He appeared to be well developed, well nourished, in no acute distress. HEAD, EARS, EYES, NOSE, MOUTH AND THROAT: Normal. CHEST: Clear. CARDIAC: Normal. ABDOMEN: Soft, nontender. EXTREMITIES: Normal. IMPRESSION: 1. Lumbar spine degenerative osteoarthritis and disk disease with radiculopathy. 2. Chronic obstructive pulmonary disease. RECOMMENDATIONS: None. MMODL / IJN: [id number] /
--- NOTE | 2023-01-13 03:52 | PN ---
PROGRESS NOTE DATE OF SERVICE: 01/11/2023 CHIEF COMPLAINT: Status post LS spine decompression for spinal stenosis. HISTORY OF PRESENT ILLNESS: This gentleman is in quite a bit of discomfort. He has not had any chest pain, shortness of breath, chills, nausea, vomiting, etc. PHYSICAL EXAMINATION: VITAL SIGNS: Normal. CHEST: Clear. CARDIAC: Normal. ABDOMEN: Soft, nontender. EXTREMITIES: Normal. IMPRESSION: Status post LS spine procedure. PLAN: Follow for any medical problems, but he is doing well. MMODL / IJN: [id number] /
--- NOTE | 2023-01-13 05:10 | PN ---
PROGRESS NOTE DATE OF SERVICE: 01/12/2023 CHIEF COMPLAINT: Low back procedure. HISTORY OF PRESENT ILLNESS: This gentleman is doing fairly well, but he is still a little bit lethargic from the pain medication. REVIEW OF SYSTEMS: He denies chest pain or abdominal pain and he has had no nausea. PHYSICAL EXAMINATION: CHEST: Clear. CARDIAC: Normal. ABDOMEN: Soft, nontender. IMPRESSION: 1. Status post LS spine procedure. 2. Chronic obstructive pulmonary disease. PLAN: No change in his management at this time from my perspective. MMODL / IJN: [id number] /
[2023-01-13] MEDS: ACETAMINOPHEN TAB 325 MG TAB PO SCH ×2 (05:58→13:58)
[2023-01-13] MEDS: PANTOPRAZOLE 40 MG TABLET PO SCH (05:59)
[2023-01-13] MEDS: SENNOSIDES-DOCUSATE SODIUM 1 EACH TAB PO SCH (08:46)
[2023-01-13] MEDS: ATORVASTATIN 80 MG TAB PO SCH (08:46)
[2023-01-13 08:47] LABS: Basophils # (A) 0.03 X 10*3/uL (0.00-0.10); Basophils % (A) 0.2 %; Eosinophils # (A) 0.01 X 10*3/uL (0.04-0.35); Eosinophils % (A) 0.1 %; HCT 33.4 % (39.6-50.0); HGB 11.1 g/dL (13.0-17.0); Immature Grans, Automated 0.3 %; Lymphocytes # (A) 1.78 X 10*3/uL (0.90-5.00); Lymphocytes % (A) 14.5 %; MCH 30.9 pg (27.0-32.0); MCHC 33.2 g/dL (32.0-37.0); Mean Platelet Volume 9.9 fL (9.5-12.2); Monocytes # (A) 0.92 X 10*3/uL (0.20-1.00); Monocytes % (A) 7.5 %; NRBC Per 100 WBC 0 /100 WBCS (0.0-0.0); Neutrophils # (A) 9.53 X 10*3/uL (1.80-7.70); Neutrophils % (A) 77.4 %; Platelet Count 178 X 10*3/uL (140-440); RBC 3.59 X 10*6/uL (4.40-5.60); RDW 12.9 % (11.5-14.5); WBC 12.31 X 10*3/uL (4.50-10.00)
[2023-01-13] MEDS: CYCLOBENZAPRINE 10 MG TAB PO SCH (08:48)
[2023-01-13] MEDS: atenoloL 50 MG TAB PO SCH (08:48)
[2023-01-13] MEDS: GABAPENTIN 300 MG CAP PO SCH (08:48)
[2023-01-13 08:59] LABS: African American GFR (CKD) 121.4 (60.0-200.0); Albumin 3.9 g/dL (3.8-4.9); Albumin/Globulin Ratio 1.7 (1.60-3.17); BUN/Creat Ratio 19.71 Ratio (12.00-20.00); Blood Urea Nitrogen 13.8 mg/dL (9.0-27.0); Calcium 8.9 mg/dL (8.7-10.3); Globulin 2.3 g/dL (1.6-3.3); Non-African American GFR(CKD) 104.8 (60.0-200.0); Potassium 3.6 mmol/L (3.5-5.5); Total Bilirubin 0.5 mg/dL (0.30-1.20); Total Protein 6.2 g/dL (6.2-8.2)
[2023-01-13] MEDS: HYDROmorphone 1 MG/ML 1 ML SYRINGE IVP PRN ×2 (11:30)
--- NOTE | 2023-01-13 11:42 | P.PN ---
Subjective Progress Note Date: 01/13/23 Patient denying any acute complaints. Patient states that he has been walking in the hallways and he is not having any issues. He is hoping he'll be able to go home soon. Objective - Vital Signs Vital signs: Vital Signs Temp 97.4 F L 01/13/23 07:00 Pulse 80 01/13/23 07:00 Resp 14 01/13/23 07:00 BP 124/73 01/13/23 07:00 Pulse Ox 94 L 01/13/23 09:05 FiO2 Intake & Output 01/12/23 01/13/23 01/13/23 18:59 06:59 18:59 Intake Total 480 Output Total 360 400 Balance -360 80 Intake: Oral 480 Output: Drainage 0 0 Right Posterior Back 0 0 Urine 360 400 Uretheral ([place]) 360 Other: Voiding Method Indwelling Catheter # Voids 1 - Exam General examination - Alert and Oriented 3 in NAD Heart - + S1S2 no murmurs Lungs - Clear to auscultation Abdomen soft NT ND +ve BS Extremities - No edema [employer] - Moving all 4 extremities spontaneously Psych - Calm and cooperative - Labs CBC & Chem 7: 01/13/23 03:25 01/13/23 03:25 Labs: Abnormal Lab Results - Last 24 Hours (Table) 01/13/23 01/13/23 Range/Units 03:25 03:25 WBC 12.31 H (4.50-10.00) X 10*3/uL RBC 3.59 L (4.40-5.60) X 10*6/uL Hgb 11.1 L (13.0-17.0) g/dL Hct 33.4 L (39.6-50.0) % Neutrophils # 9.53 H (1.80-7.70) X 10*3/uL Eosinophils # 0.01 L (0.04-0.35) X 10*3/uL Glucose 130 H (70-110) mg/dL AST 36 H (14-35) U/L Assessment and Plan Assessment: Assessment status post L2 to S1 revision decompression with revision fusion L4 to S1 Acute blood loss anemia, anticipated outcome of surgery Hypertension Dyslipidemia Plan: -Pain management as per primary team -Continue with atenolol 50 mg daily, Lipitor 80 mg daily, gabapentin 300 mg 3 times daily, Protonix 40 mg daily -Hemoglobin is stable this morning Patient stable for discharge from a medical standpoint DVT prophylaxis: Per orthopedic surgery
--- NOTE | 2023-01-13 11:55 | P.DS ---
Providers Date of admission: 01/10/23 10:52 Expected date of discharge: 01/13/23 Attending physician: Brayan Don DO Consults: 01/10/23 17:54 Consult Physician Routine Consulting Provider: Patricia Mckeon Consult Reason/Comments: s/p L3-pelvis decompr-fusion Do you want consulting provider notified?: Yes Primary care physician: Baudilio Leblanc Hospital Course: Date of admission: 01/10/2023 Date of discharge: 01/13/2023 Admission diagnosis: 1. S/P L1-L2 laminectomy with microdiskectomy 2. L2-S1 spondylosis with stenosis 3. Adjacent segment disease L3-L4 4. S/P L4-S1 fusion 5. L4-S1 pseudoarthrosis Discharge diagnosis: Same Attending physician: Dr. Don Surgical procedures: L2 to pelvis decompression fusion; revision Brief history: Patient is a 57-year-old male with a history of L2-S1 spondylosis with stenosis; adjacent segment disease L3-L4; L4-S1 pseudoarthrosis. At this point patient has failed conservative treatment measures and has opted to proceed with a elective [id number] decompression fusion. Hospital course: Details of patient's surgery can be found in operative report. Patient tolerated the procedure well and was subsequently transported to orthopedic floor. Patient's orthopeidc and medical care was provided daily. Patient had daily laboratory tests performed for evaluation of overall blood counts. Patient had daily physical therapy to include strengthening range of motion as well as education with walker ambulation. Patient was noted to have a relatively uneventful postoperative course. Patient reported satisfactory pain control with oral pain medications by postoperative day 3. Patient showed satisfactory progress with physical therapy. Patient moved steadily through the program and had no difficulty meeting the goals by postoperative day 3. Given patient's otherwise satisfactory course and having met physical therapy goals, plan is to discharge patient home with health services on postoperative day 3. Discharge condition/disposition: Patient will be discharged home with health services in stable condition. Discharge medications: Instructions are given on resumption of patient's normal daily medications per primary care recommendation, in addition patient will be prescribed oxycodone; Flexeril; gabapentin; senna; Duricef. Spine Discharge and Recovery Instructions Date of Surgery: 01/10/2023 Diagnosis: 1. S/P L1-L2 laminectomy with microdiskectomy 2. L2-S1 spondylosis with stenosis 3. Adjacent segment disease L3-L4 4. S/P L4-S1 fusion 5. L4-S1 pseudoarthrosis Procedure: [id number] decompression and fusion; revision Medications: See medication list All medication refills should be obtained through your primary care doctor or your clinic spine surgeon. Please discuss prescription refills at your follow up appointment. Do not call the hospital for medication refills. Dressing: Leave your dressing in place for a total of 5 days post operatively. Then you may remove your dressing and leave open to air. Keep the area clean and if not able to keep area clean, then cover with sterile gauze and tape. Showering: You may shower 3 days after your procedure allowing soap and water to run over incision. Do not scrub. Do not soak. Blot dry. Follow up: Please confirm a follow up appointment with your surgeon 3 weeks post operatively. Please make an appointment to follow up with your PCP in 1-2 weeks after surgery for evaluation 3 phase, 3-week plan POST OP WEEKS 1-3 1. Lifting/carrying/pushing/pulling limited to less than 5 pounds. 2. Do not sit for longer than 15 minutes at one time. Get up and walk around. Prolonged sitting is NOT advised. If you lay down, see if you can tolerate laying down on you front (belly side) 3. Walk for periods of 15 minutes = 1 mile but no longer; do it multiple times times each day. 4. Ice your low back after activity. POST OP WEEKS 3-6 1. Lifting limited to less than 20 pounds. 2. Do not sit for longer than 30 minutes at a time. Frequently change positions. Use a sit-to stand workstation or take frequent breaks from sitting if you have returned to work. 3. Walk for 30 minutes each day. If possible, do these three or more times a day POST OP WEEKS 6+ At your 6-week appointment we will give you a physical therapy referral to focus on a core stabilization and strengthening program. You should also work on leg & buttock strengthening, hamstring & quadriceps stretching, and continue a low impact aerobic activity program such as swimming, walking, or riding a stationary bicycle. During the initial 6 weeks after your surgery, you are at the highest risk of re-injuring your spine. You should generally avoid BLTs (bending, lifting and twisting combination motions) and follow the above guidelines to reduce the chance of reinjury. You can anticipate post op appointments in our office at approximately 3 weeks and 6 weeks after your surgery. INCISION CARE: If your incision is not draining you do NOT need to cover it with a dressing. Keep your incision clean, dry and intact. In most cases, we apply skin glue, michael or sutures to the incision at the time of surgery. This will be like a crust or have the appearance of a scab and will fall off in time on its own. The stitches or michael need to be removed at 3 weeks post op appointment. You may begin to shower 3 days after surgery (this allows the glue to coles well). However, please avoid scrubbing the incision site or peeling off any of the skin glue. This will ensure optimal healing of your incision. Also, during this time avoid soaking the incision area in water - this includes swimming pools, hot tubs or baths. No ointments, lotions or oils on the incision until your surgeon allows. Leave michael, sutures or glue in place. Neurological dysfunction that comes on suddenly can also be a sign of a stroke. Below some common symptoms of a stroke are listed: B - balance difficulty such as sudden onset walking or leaning to one side - NEW E - eye problem such as sudden double vision or trouble seeing on one side - NEW F - Facial weakness or numbness on one side - NEW A - Arm or leg weakness or numbness on one side - NEW S - Slurred speech or difficulty with word finding - NEW T - Time is BRAIN! Call 911 as soon as you recognize these symptoms Diet: Consume a regular diet rich in vegetables and lean protein such as chicken or fish. You should consume in a ratio of approximately 20% fats|40% carbohydrates|40%protein. Vegetables, sweet potatoes, brown rice or quinoa are examples of good carbohydrates. Chips, white bread, cookies and sweets/sugar are examples of bad carbohydrates. Limit your bad carbs, go wild with good carbs. "Life's Simple 7" Guidelines as per [place] [employer] These will help you reclaim your life after surgery and kiln firer helper in your recovery, keeping in mind your restrictions. (1) Get Active. Physical activity can help people lose weight, control high blood pressure and cholesterol, feel emotionally better, and sleep better. (2) Control Cholesterol. Avoid a diet high in saturated fat, trans fat, & cholesterol. Limit whole milk & cream, ice cream, butter, egg yolks, processed meats (like sausage and hot dogs), and fatty meats. Choose healthy foods that are low in saturated fat, trans fat and cholesterol which include: Fruits and vegetables, fiber rich grain products (like whole grain pasta and brown rice), lean meat such as chicken, fish, nuts, seeds, and legumes. (3) Eat Better. Eat small portions. Shop at the grocery with a list and do not stray from it. Tips for a healthy diet include: Limit sodium intake to less than 1500mg daily, avoid prepackaged, processed, and fast foods, choose a diet rich in fruits, vegetables, and whole grain, high fiber foods, and limit saturated & cholesterol in your diet. (4) Manage Blood Pressure. If you have high blood pressure, you should have a cuff at home so that you can check your blood pressure regularly. Be sure you have a good cuff. An arm one is generally better than a wrist one. Bring the cuff to a doctor's appointment to validate that the measurements that your cuff are taking are accurate. Take your blood pressure twice daily when you are sitting down and relaxing. Record the numbers in a log and bring this log with you to your doctors' appointments. (5) Lose Weight if your BMI is above 25. A healthy BMI is between 19-25. To calculate Your BMI, you may use a Standard BMI Calculator on the NIH BMI website: <www.nhlbi.nih.gov/guidelines/obesity/BMI/bmicalc.htm>. Weigh oneself daily. If you are overweight, set a goal to lose weight. A pound a week loss if needed is a good target. (6) Reduce Blood Sugar. Limit foods and liquids with "added sugars." (Added sugars include sucrose, fructose, glucose, maltose, dextrose, high fructose corn syrup, corn syrup, concentrated fruit juice and honey). (7) Stop Smoking. If you smoke, quitting smoking is one of the best things that you can do for your health. Smoking increases your risk of heart attack, stroke, and peripheral vascular disease, which is a build-up of plaque in your arteries. Please discard all the cigarettes and lighters in your house. Have a plan for what you will do when you have the urge to smoke. Direct and second- hand smoke shortens your life as well as the lives of your family, friends and others around you. For your health and the health of those around you, please consider quitting! Proper Bending Body Mechanics: Maintain a wide stance with one foot slightly in front of the other. Keep your back straight. Bend utilizing the strength in your hips and knees. Do not bend at the waist. Maintain the lifted object at your waist-level close to your body. Avoid lifting weight that causes immediately pain or pain anywhere in the body afterwards. Smoking/Nicotine If there was ever one thing that you could do to increase your overall health, decrease your risk of cardiovascular problems by about 39% the second you make the choice, it is to STOP SMOKING. Your body's most instant gratification is the second you stop smoking. We have all heard the studies, read the articles but it is true, smoking is extremely bad for your overall health, and moreover it is detrimental to your bone health. Nicotine, IN ANY FORM, kills bone cells, prevents your body from healing fractures, and significantly prolongs healing after surgery. In spine surgery specifically, it increases your risk of not healing your bones to create a fusion and increases your risk of having a revision surgery due to this up to 60%. I know it is hard. I know it feels impossible. But there are ways. Take control of your life. We are here to help you through it. And when you are ready, ask us and we can direct you to help if you desire. Use the START Plan to Quit Smoking (please visit the [employer]org website listed below for more information): S = Set a quit date. Choose a date within the next 2 weeks, so you have enough time to prepare without losing your motivation to quit. If you mainly smoke at work, quit on the weekend, so you have a few days to adjust to the change. T = Tell family, friends, and co-workers that you plan to quit. Let your friends and family in on your plan to quit smoking and tell them you need their support and encouragement to stop. Look for a quit mason who wants to stop smoking as well. You can help each other get through the rough times. A = Anticipate and plan for the challenges you'll face while quitting. Most people who begin smoking again do so within the first 3 months. You can h elp yourself make it through by preparing ahead for common challenges, such as nicotine withdrawal and cigarette cravings. R = Remove cigarettes and other tobacco products from your home, car, and work. Throw away all your cigarettes (no emergency pack!), lighters, ashtrays, and matches. Wash your clothes and freshen up anything that smells like smoke. Shampoo your car, clean your drapes and carpet, and steam your furniture. T = Talk to your doctor about getting help to quit. Your doctor can prescribe medication to help with withdrawal and suggest other alternatives. If you can't see a doctor, you can get many products over the counter at your local pharmacy or grocery store, including the nicotine patch, nicotine lozenges, and nicotine gum. Resources for Quitting Smoking: <https://www.[place].gov/documents/[facility]/Quit_Tobacco_Resources_for_patients_313 480_7.pdf> Supplementation: Take recommended dosages of Vitamin D and Calcium to help fortify your bones and help them to heal. See your health maintenance packet for dosages and recommended levels. DVT/VTE prophylaxis: You will be given compression stockings from the hospital. Wear these daily for the first two weeks after surgery. You may take them off at night. You may be prescribed a medication to help thin your blood. Take this as directed. If you are not prescribed this medication, early and frequent ambulation has been shown to be the best prophylaxis to deep vein thrombosis and sequelae related to this event. Assessment: 1. S/P L1-L2 laminectomy with microdiskectomy 2. L2-S1 spondylosis with stenosis 3. Adjacent segment disease L3-L4 4. S/P L4-S1 fusion 5. L4-S1 pseudoarthrosis Procedures: L2 to pelvis decompression fusion revision Patient Condition at Discharge: Good Plan - Discharge Summary Discharge Rx Participant: No New Discharge Prescriptions: New cefaDROXiL [Duricef] 500 mg PO Q12HR 5 Days #10 cap Cyclobenzaprine [Flexeril] 10 mg PO TID #30 tab oxyCODONE HCL/ACETAMINOPHEN [oxyCODONE HCL/ACETAMINOPHEN 10-300] 1 tab PO Q6H #28 tab Sennosides/Docusate Sodium [Senna Plus 8.6-50 mg Softgel] 1 each PO DAILY #20 capsule Gabapentin 600 mg PO TID #60 tab No Action HYDROcodone/APAP 10-325MG [[place] 10-325] 1 tab PO TID Atorvastatin Calcium [Lipitor] 80 mg PO QAM atenoloL [Tenormin] 50 mg PO QAM Fenofibrate Nanocrystallized [Fenofibrate] 145 mg PO QAM Gabapentin 300 mg PO TID #90 cap Cyclobenzaprine [Flexeril] 10 mg PO TID PRN PRN Reason: Muscle Spasm Pantoprazole [Protonix] 40 mg PO DAILY Discharge Medication List Atorvastatin Calcium [Lipitor] 80 mg PO QAM 07/12/22 [History] Fenofibrate Nanocrystallized [Fenofibrate] 145 mg PO QAM 07/12/22 [History] HYDROcodone/APAP 10-325MG [[place] 10-325] 1 tab PO TID 07/12/22 [History] atenoloL [Tenormin] 50 mg PO QAM 07/12/22 [History] Gabapentin 300 mg PO TID #90 cap 07/14/22 [Rx] Cyclobenzaprine [Flexeril] 10 mg PO TID PRN 01/04/23 [History] Pantoprazole [Protonix] 40 mg PO DAILY 01/04/23 [History] Cyclobenzaprine [Flexeril] 10 mg PO TID #30 tab 01/13/23 [Rx] Gabapentin 600 mg PO TID #60 tab 01/13/23 [Rx] Sennosides/Docusate Sodium [Senna Plus 8.6-50 mg Softgel] 1 each PO DAILY #20 capsule 01/13/23 [Rx] cefaDROXiL [Duricef] 500 mg PO Q12HR 5 Days #10 cap 01/13/23 [Rx] oxyCODONE HCL/ACETAMINOPHEN [oxyCODONE HCL/ACETAMINOPHEN 10-300] 1 tab PO Q6H #28 tab 01/13/23 [Rx] Follow up Appointment(s)/Referral(s): Baudilio Leblanc MD [Primary Care Provider] - 1 Week [facility], [NON-STAFF] - As Needed Brayan Don DO [Doctor of Osteopathic Medicine] - 01/25/23 10:20 am Activity/Diet/Wound Care/Special Instructions: Dressing on incision may come off on 01/15/2023. Nadolol water run down over incision and shower once dressing is removed on Monday. Spine Discharge and Recovery Instructions Date of Surgery: 01/10/2023 Diagnosis: 1. S/P L1-L2 laminectomy with microdiskectomy 2. L2-S1 spondylosis with stenosis 3. Adjacent segment disease L3-L4 4. S/P L4-S1 fusion 5. L4-S1 pseudoarthrosis Procedure: [id number] decompression and fusion; revision Medications: See medication list All medication refills should be obtained through your primary care doctor or your clinic spine surgeon. Please discuss prescription refills at your follow up appointment. Do not call the hospital for medication refills. Dressing: Leave your dressing in place for a total of 5 days post operatively. Then you may remove your dressing and leave open to air. Keep the area clean and if not able to keep area clean, then cover with sterile gauze and tape. Showering: You may shower 3 days after your procedure allowing soap and water to run over incision. Do not scrub. Do not soak. Blot dry. Follow up: Please confirm a follow up appointment with your surgeon 3 weeks post operatively. Please make an appointment to follow up with your PCP in 1-2 weeks after surgery for evaluation 3 phase, 3-week plan POST OP WEEKS 1-3 1. Lifting/carrying/pushing/pulling limited to less than 5 pounds. 2. Do not sit for longer than 15 minutes at one time. Get up and walk around. Prolonged sitting is NOT advised. If you lay down, see if you can tolerate laying down on you front (belly side) 3. Walk for periods of 15 minutes = 1 mile but no longer; do it multiple times times each day. 4. Ice your low back after activity. POST OP WEEKS 3-6 1. Lifting limited to less than 20 pounds. 2. Do not sit for longer than 30 minutes at a time. Frequently change positions. Use a sit-to stand workstation or take frequent breaks from sitting if you have returned to work. 3. Walk for 30 minutes each day. If possible, do these three or more times a day POST OP WEEKS 6+ At your 6-week appointment we will give you a physical therapy referral to focus on a core stabilization and strengthening program. You should also work on leg & buttock strengthening, hamstring & quadriceps stretching, and continue a low impact aerobic activity program such as swimming, walking, or riding a stationary bicycle. During the initial 6 weeks after your surgery, you are at the highest risk of re-injuring your spine. You should generally avoid BLTs (bending, lifting and twisting combination motions) and follow the above guidelines to reduce the chance of reinjury. You can anticipate post op appointments in our office at approximately 3 weeks and 6 weeks after your surgery. INCISION CARE: If your incision is not draining you do NOT need to cover it with a dressing. Keep your incision clean, dry and intact. In most cases, we apply skin glue, michael or sutures to the incision at the time of surgery. This will be like a crust or have the appearance of a scab and will fall off in time on its own. The stitches or michael need to be removed at 3 weeks post op appointment. You may begin to shower 3 days after surgery (this allows the glue to coles well). However, please avoid scrubbing the incision site or peeling off any of the skin glue. This will ensure optimal healing of your incision. Also, during this time avoid soaking the incision area in water - this includes swimming pools, hot tubs or baths. No ointments, lotions or oils on the incision until your surgeon allows. Leave michael, sutures or glue in place. Neurological dysfunction that comes on suddenly can also be a sign of a stroke. Below some common symptoms of a stroke are listed: B - balance difficulty such as sudden onset walking or leaning to one side - NEW E - eye problem such as sudden double vision or trouble seeing on one side - NEW F - Facial weakness or numbness on one side - NEW A - Arm or leg weakness or numbness on one side - NEW S - Slurred speech or difficulty with word finding - NEW T - Time is BRAIN! Call 911 as soon as you recognize these symptoms Diet: Consume a regular diet rich in vegetables and lean protein such as chicken or fish. You should consume in a ratio of approximately 20% fats|40% carbohydrates|40%protein. Vegetables, sweet potatoes, brown rice or quinoa are examples of good carbohydrates. Chips, white bread, cookies and sweets/sugar are examples of bad carbohydrates. Limit your bad carbs, go wild with good carbs. "Life's Simple 7" Guidelines as per [place] [employer] These will help you reclaim your life after surgery and kiln firer helper in your recovery, keeping in mind your restrictions. (1) Get Active. Physical activity can help people lose weight, control high blood pressure and cholesterol, feel emotionally better, and sleep better. (2) Control Cholesterol. Avoid a diet high in saturated fat, trans fat, & cholesterol. Limit whole milk & cream, ice cream, butter, egg yolks, processed meats (like sausage and hot dogs), and fatty meats. Choose healthy foods that are low in saturated fat, trans fat and cholesterol which include: Fruits and vegetables, fiber rich grain products (like whole grain pasta and brown rice), lean meat such as chicken, fish, nuts, seeds, and legumes. (3) Eat Better. Eat small portions. Shop at the grocery with a list and do not stray from it. Tips for a healthy diet include: Limit sodium intake to less than 1500mg daily, avoid prepackaged, processed, and fast foods, choose a diet rich in fruits, vegetables, and whole grain, high fiber foods, and limit saturated & cholesterol in your diet. (4) Manage Blood Pressure. If you have high blood pressure, you should have a cuff at home so that you can check your blood pressure regularly. Be sure you have a good cuff. An arm one is generally better than a wrist one. Bring the cuff to a doctor's appointment to validate that the measurements that your cuff are taking are accurate. Take your blood pressure twice daily when you are sitting down and relaxing. Record the numbers in a log and bring this log with you to your doctors' appointments. (5) Lose Weight if your BMI is above 25. A healthy BMI is between 19-25. To calculate Your BMI, you may use a Standard BMI Calculator on the NIH BMI website: <www.nhlbi.nih.gov/guidelines/obesity/BMI/bmicalc.htm>. Weigh oneself daily. If you are overweight, set a goal to lose weight. A pound a week loss if needed is a good target. (6) Reduce Blood Sugar. Limit foods and liquids with "added sugars." (Added sugars include sucrose, fructose, glucose, maltose, dextrose, high fructose corn syrup, corn syrup, concentrated fruit juice and honey). (7) Stop Smoking. If you smoke, quitting smoking is one of the best things that you can do for your health. Smoking increases your risk of heart attack, stroke, and peripheral vascular disease, which is a build-up of plaque in your arteries. Please discard all the cigarettes and lighters in your house. Have a plan for what you will do when you have the urge to smoke. Direct and second- hand smoke shortens your life as well as the lives of your family, friends and o thers around you. For your health and the health of those around you, please consider quitting! Proper Bending Body Mechanics: Maintain a wide stance with one foot slightly in front of the other. Keep your back straight. Bend utilizing the strength in your hips and knees. Do not bend at the waist. Maintain the lifted object at your waist-level close to your body. Avoid lifting weight that causes immediately pain or pain anywhere in the body afterwards. Smoking/Nicotine If there was ever one thing that you could do to increase your overall health, decrease your risk of cardiovascular problems by about 39% the second you make the choice, it is to STOP SMOKING. Your body's most instant gratification is the second you stop smoking. We have all heard the studies, read the articles but it is true, smoking is extremely bad for your overall health, and moreover it is detrimental to your bone health. Nicotine, IN ANY FORM, kills bone cells, prevents your body from healing fractures, and significantly prolongs healing after surgery. In spine surgery specifically, it increases your risk of not healing your bones to create a fusion and increases your risk of having a revision surgery due to this up to 60%. I know it is hard. I know it feels impossible. But there are ways. Take control of your life. We are here to help you through it. And when you are ready, ask us and we can direct you to help if you desire. Use the START Plan to Quit Smoking (please visit the [employer]org website listed below for more information): S = Set a quit date. Choose a date within the next 2 weeks, so you have enough time to prepare without losing your motivation to quit. If you mainly smoke at work, quit on the weekend, so you have a few days to adjust to the change. T = Tell family, friends, and co-workers that you plan to quit. Let your friends and family in on your plan to quit smoking and tell them you need their support and encouragement to stop. Look for a quit mason who wants to stop smoking as well. You can help each other get through the rough times. A = Anticipate and plan for the challenges you'll face while quitting. Most people who begin smoking again do so within the first 3 months. You can help yourself make it through by preparing ahead for common challenges, such as nicotine withdrawal and cigarette cravings. R = Remove cigarettes and other tobacco products from your home, car, and work. Throw away all your cigarettes (no emergency pack!), lighters, ashtrays, and matches. Wash your clothes and freshen up anything that smells like smoke. Shampoo your car, clean your drapes and carpet, and steam your furniture. T = Talk to your doctor about getting help to quit. Your doctor can prescribe medication to help with withdrawal and suggest other alternatives. If you can't see a doctor, you can get many products over the counter at your local pharmacy or grocery store, including the nicotine patch, nicotine lozenges, and nicotine gum. Resources for Quitting Smoking: <https://www.[place].gov/documents/[facility]/Quit_Tobacco_Resources_for_ patients_313480_7.pdf> Supplementation: Take recommended dosages of Vitamin D and Calcium to help fortify your bones and help them to heal. See your health maintenance packet for dosages and recommended levels. DVT/VTE prophylaxis: You will be given compression stockings from the hospital. Wear these daily for the first two weeks after surgery. You may take them off at night. You may be prescribed a medication to help thin your blood. Take this as directed. If you are not prescribed this medication, early and frequent ambulation has been shown to be the best prophylaxis to deep vein thrombosis and sequelae related to this event. Discharge Disposition: HOME WITH HOME HEALTH SERVICES
--- NOTE | 2023-01-13 13:17 | P.OP ---
Date of Procedure: 01/10/23 Preoperative Diagnosis: 1. L1-5 severe stenosis 2. ASD L3-4 with stenosis 3. Pseudoarthrosis L4-5 s/p Revision L4-S1 decompression fusion at OSH 4. LE weakness with radiculopathy 5. LE paresthesia 6. Low back pain Postoperative Diagnosis: 1. L1-5 severe stenosis 2. ASD L3-4 with stenosis 3. Pseudoarthrosis L4-5 s/p Revision L4-S1 decompression fusion at OSH 4. LE weakness with radiculopathy 5. LE paresthesia 6. Low back pain Procedure(s) Performed: 1. L3-4 posteriolateral and interbody fusion (61851) 2. Revision posteriolateral fusion L4-S1 (84143, 18684)/59 3. L1-L5 Bilateral laminectomy, complete facetectomy and foraminotomy for d eformity correction, decompression of neural elements beyond that needed for cage placement (12841, 78335i7) 4. Segmental instrumentation L3-Pelvis (39248) 5. Attachment of the caudal end of construct to the bony pelvis (85021) 6. Insertion of biomechanical devices L3-L4 (85655) 7. Removal of segmental instrumentation L4-S1 (78483) 8. Exploration of fusion L4-S1 with L4-5 pseudoarthrosis (18266) 9. Use of [employer] Powertrain navigation for screw placement (70550) Use of IONM all screws testing >15 mA Implants: -Globus Creo Screw and lori system -MIrabus expandable cage medium length x1 -MagnatOs, Allograft, Allocell, iFactor, Autograft. Anesthesia: GETA Surgeon: Brayan Don Engraving Operator #1: Frederick Hidalgo (Was present and assisted with all aspects of the case from positiioning to dressing placement) Estimated Blood Loss (ml): 450 IV fluids (ml): 1,900 Urine output (ml): 250 Pathology: none sent Condition: stable Disposition: PACU Indications for Procedure: Mr. Burns is presenting for evaluation of low back pain. It was my pleasure to have seen and examined Mr. Burns. In our visit today we have had a chance to go over subjective complaints, physical examination findings and treatments including the natural course history without intervention and various interventional options. The patients imaging demonstrates: MRI scan [facility] from 08/25/2022 of Lumbar Spine: Post surgical changes noted L1-2 and L4-S1. ASD L3-4. Some residual stenosis L1-2 with spondylosis, No fractures. No lesions. Liekly pseudoarthrosis L5-S1 noted with marrow changes. No fracture. On physical exam, Mr. Burns demonstrates lower extremities with 4+ out of 5 strength in all major muscle groups. Furthermore there is significant TTP about the midline of the lumbar region with left lower extremity dermatomal deficits about the L2-3 region. Overall functional testing is very limited due to pain at this time. Patient ambulating with the use of a walker and overall unsteady on his feet. I have explained to the patient that as their condition progresses it will cause further neurological deficits and eventual paralysis. Based on the patients imaging, physical exam, and the rapid progression and disabling nature of their symptoms, at this time I recommend surgery in the form or a: lumbar (L2-S1) Revision decompression with revision (L4-S1) fusion. I discussed the risk and benefits of this procedure at length with Mr. Burns. The patient agreed to considered pursuing the procedure abovementioned. Prior to surgery, she should follow up with her PCP (Cardio, ID, IM etc) for clearance. Questions were invited and answered, and the patient wishes to proceed as outlined below. Currently, I am recommendin. lumbar (L2-S1) Revision decompression with revision (L4-S1) fusion Description of Procedure: L3-Pelvis revision Decompression and fusion The patient was seen and examined in the preoperative area. All preoperative protocols were followed. Informed consent was obtained, risks and benefits of the procedure were discussed at length. Risks including bleeding infection damage to the surrounding tissue and risk of re-operation were discussed with the patient. Risk of anesthesia up to and including was discussed with the patient. These are outlined in the risk review. They were willing to accept these risks and all the risks of surgery. The patient was given a weight-based dose of antibiotics in the form of 2 g Ancef. The patient was seen and evaluated by the anesthesia team who deemed them fit for surgery. The site was marked, the patient was willing to proceed with the procedure. The patient was transferred to the operative suite by the Department of anesthesia. They were then drifted off to sleep by the department anesthesia and GETA was performed. The patient tolerated this well. Mcdermott catheter was placed by nursing staff, a-traumatically. Once confirmation of lines and ventilation the patient was transferred to a prone Trios spine table very carefully. The head was secured and stable. Xray confirmed alignment. All bony prominences including wrists, elbows, axilla, chest, hips, and thighs, and feet were padded very well. Special attention was paid to the genitalia, and these were padded accordingly. SCDs were placed on bilateral lower extremities and were connected. Arms were well padded and placed at 90/90 up and out and well padded. Safety strap and tape placed on the patient. Once in position, again we confirmed good ventilation capabilities and that lines were running appropriately. The patients lumbosacral pelvic was then exposed. Hair was re moved for incision. 1010s were placed outlining the incision site. Standard alcohol was used to clean the incision site and allowed to dry. C-arm was used to bio-atul the patient and confirm level for incision which was marked with a skin marker. Operative briefing was performed with all teams and everyone in agreement to proceed. The patient was then prepped and draped in a normal sterile fashion. Timeout was then performed, and all parties agreed with the procedure to be performed. Midline skin incision was then made over the previously bookmarked area and dissection taken down to the lumbosacral fascia which was identified and cleaned with a barfield. There was excessive sub-q adipose that was obtrusive and needed to be retracted. Once midline was identified, fasciotomy was made over the SP of L1-S1 and pelvis. Subperiosteal dissection was then taken down over the lamina and facet joints and TPs were exposed and trough made posterolateral. TPs were then decorticated with a high speed deacon for lateral fusion. Dissection was taken out over the sacrum to the pelvis. SI joint identified and modified Patel starting point for pelvic screws identified as well. Retractors place d. Wound was irrigated and lateral image with penfield 4 placed at the pars of L4 confirmed levels for operation. Old hardware was then removed. Exploration of fusion done and there was movement still at L4-5 with pseudoarthrosis and b/l L4 screws being loose. S1 screw on the left was broken but was able to be removed. Screw paths were irrigated and debrided and probed and were satisfactory. We then proceeded to placement of new hardware. SP clamp was then placed for the [employer] Powertrain navigation tracker and secured. The wound was then filled with NSS and Z-drape placed. A 3D Zhiem spin was then obtained and registered. Once confirmation of accuracy screws were then placed from L3-Pelvis using navigation. Navigated high speed deacon was used to make a ship's pilot hole followed by a navigated awl-tap passed through the pedicle into the body. A ball tip probe then confirmed within the pedicle. Screw was then measured and placed using a navigated screwdriver.Screws at L4 and S1 upsized. After screws were placed from L3-S1, AP image confirmed safe placement of screws. Lateral images as well as navigation were then used to place bilateral pelvic screws. Starting point selected just lateral to the SI joint and S2 pseudo facet. Lateral image taken and deacon used to make the ship's pilot hole. Gearshift then used to pass into the pelvis under lateral imaging just above the sciatic notch. 30 deg/30deg iliac oblique then taken to confirm within the teardrop and ball tip probe used to probe good bone. Screw was then measured and selected and placed under lateral imaging. This was repeated on the contralateral side. Screws were then visualized and appeared safe. A second Zheim spin was obtained and confirmed safe screw placement. Only partial pelvis was viewed in this spin due to the patient's body habitus. Screws were then tested, and reliably tested screws tested above 20 mA. There was an issue with IONM that precluded all screws from being successfully tested at the time. We then proceeded to decompression and interbody placement. Starting at L3-4, bilateral laminectomy, complete facetectomy and foraminotomies were performed using high speed bur, Kerrison rongure. There was exuberant bone formation, osteophytes and scar tissue surrounding these joints as well as the dura. Once exposed the neural elements were protected. Osteotome was used to make osteotomy in L3-4 and for complete disc removal. This was passed into the anterior 1/3 of L3. This allowed for loosening of this level and correction. A cage was then selected based on shaving and trials. Bleeding endplates were encountered and cartilage removed. Autograft, allograft were then placed anterior to the cage. The cage was then impacted into place under lateral imaging while protecting neural elements. The cage was then expanded into position and showed good lift and correction. Buddhism of lordosis and height achieved. Meticulous hemostasis then performed. Cage was backfilled wi DBM and the area irrigated. We then proceeded to L4-S1. The posteriorlateral gutters of L3-S1 were cleaned and high speed deacon used to decorticate TP at these levels for posteriolateral fusion. There was motion between L4-5. L5-S1 was fused well. We then proceeded to decompression from L1- L5 performing with a high speed deacon bilateral laminectomy, partial medial facetectomy and foraminotomies at L1-L3 and then again at L4-5 for revision decompression in this area. There was exhuberent scar tissue at L1-2 and L4-5 but this was able to be carefully removed and there were no injuries or leaks. Once completely decompressed. Garcia probe was used to ensure the decompression was satisfactory. The wound was then irrigated. Attention was then drawn to lori placement. Rods were selected, measured, cut and bent to appropriate lordosis. They were then secured into pelvic screws b/l. Sequential reduction then done into each screw and set screw placed. Set screws were then final tightened and lateral image showed good lordosis reduction. Once rods were secured, cross links were selected and placed and final tightened. The wound was then irrigated with 3L Ancef irrigation, 3L gentamicin irrigation and 3L NSS. Surgicel was then placed on the dura, which was inspected and had no injury. Then, in the posterolateral gutter was placed, MagnatOs, Autograft and allograft. This was impacted into position and surgical placed over it. 2g Vanco powder was then placed deep in the wound. A deep, subfascial drain was placed and a superficial facial drain placed. We then proceeded with layered closure. #1 PDS placed in the deep fascia. 0 Vicryl placed in the deep subq, 2-0 placed in the superficial subq and michael placed in the skin. The wound edges approximated very well. The wound was then cleaned with ETOH and dressed with optifoam dressing, drain sponges and tegaderms. Drains sewed into position. IONM confirmed no changes. The patient was then transferred off the [facility] spine table to their hospital bed a-traumatically. Drains continued to hold suction. The patient was then extubated and transferred to the ICU in stable condition having tolerated the procedure with no complications.
--- NOTE | 2023-01-13 14:02 | P.PN ---
Subjective Progress Note Date: 01/13/23 Principal diagnosis: 1. S/P L1-L2 laminectomy with microdiskectomy 2. L2-S1 spondylosis with stenosis 3. Adjacent segment disease L3-L4 4. S/P L4-S1 fusion 5. L4-S1 pseudoarthrosis Patient was seen at bedside this morning lying in the left lateral recumbent position. Patient says he is in a moderate amount pain currently in the low back. Patient says he did get up with physical therapy yesterday and walked out to the hallway. Patient says yesterday he was doing much better than he was the first couple days after surgery. Patient says he is looking forward to going home later this afternoon. Patient says it has been somewhat difficult to get his pain under decent control. Patient says he has not had a bowel movement yet, however, patient says he has been passing gas. Patient says he has urinated several times since surgery. Patient denies any radiation of back pain. Patient denies chest pain, fever, shortness breath, nausea, vomiting, change in vision, loss of bowel/bladder control. Objective - Vital Signs Vital signs: Vital Signs Temp 97.4 F L 01/13/23 07:00 Pulse 80 01/13/23 07:00 Resp 14 01/13/23 07:00 BP 124/73 01/13/23 07:00 Pulse Ox 94 L 01/13/23 09:05 FiO2 Intake & Output 01/12/23 01/13/23 01/13/23 18:59 06:59 18:59 Intake Total 480 Output Total 360 400 Balance -360 80 Intake: Oral 480 Output: Drainage 0 0 Right Posterior Back 0 0 Urine 360 400 Uretheral (Mcdermott) 360 Other: Voiding Method Indwelling Catheter # Voids 1 - Exam Ioban dressing present over back at this time. Dressing was changed at bedside. Surgical dressing was saturated. Drain was removed at bedside. Negative for any significant drainage from drain incision. New dressing was placed over incision. Cabool are well aligned and intact at this time. Negative for any active drainage. Sensation is equal, symmetric, bilaterally throughout the upper and lower extremities. There is a moderate amount of tenderness to palpation directly over the incision on the spine. Patient has full range of motion bilateral upper extremities on exam. There is some limited range of motion bilaterally in the lower extremity secondary due to weakness/pain referred from the low back. 5/5 in all major milligrams in bilateral upper extremity exam. 4/5 in all major motor groups in bilateral lower extremities on exam. Cap refill under 3 seconds in digits of her extremities. Radial pulses intact, 2+ bilaterally. Negative Blessing bilaterally. Negative Homans 5. Negative clonus bilaterally. - Labs CBC & Chem 7: 01/13/23 03:25 01/13/23 03:25 Labs: Abnormal Lab Results - Last 24 Hours (Table) 01/13/23 01/13/23 Range/Units 03:25 03:25 WBC 12.31 H (4.50-10.00) X 10*3/uL RBC 3.59 L (4.40-5.60) X 10*6/uL Hgb 11.1 L (13.0-17.0) g/dL Hct 33.4 L (39.6-50.0) % Neutrophils # 9.53 H (1.80-7.70) X 10*3/uL Eosinophils # 0.01 L (0.04-0.35) X 10*3/uL Glucose 130 H (70-110) mg/dL AST 36 H (14-35) U/L Assessment and Plan Assessment: 1. S/P L1-L2 laminectomy with microdiskectomy 2. L2-S1 spondylosis with stenosis 3. Adjacent segment disease L3-L4 4. S/P L4-S1 fusion 5. L4-S1 pseudoarthrosis - Postoperative day #3 status post [id number] decompression fusion; revision Plan: 1. S/P L1-L2 laminectomy with microdiskectomy; L2-S1 spondylosis with stenosis; Adjacent segment disease L3-L4; S/P L4-S1 fusion; L4-S1 pseudoarthrosis - surgery performed 01/10/2023 -L2post decompression fusion, revision. Patient stable at bedside this morning. Dressing was changed at bedside. Drain was removed. Discharge home with health services Today. 2. Appreciate medical management 3. Pain management - oxycodone; gabapentin; Flexeril 4. GI prophylaxis - senna 5. DVT prophylaxis - mechanical 6. PT/OT - weightbearing as tolerated with walker 7. Encourage incentive spirometer use 8. Discharge planning - home with health services today. Time with Patient: Less than 30
[2023-01-13 14:20] VITALS: BP 110/75; PULSE 77; RESP 16; TEMP 97.7
--- NOTE | 2023-01-14 21:44 | PN ---
PROGRESS NOTE DATE OF SERVICE: 01/13/2023 CHIEF COMPLAINT: Status post decompression laminectomy. HISTORY OF PRESENT ILLNESS: This gentleman is still having a great deal of pain. He has had no fever or chills. PHYSICAL EXAM: CHEST: Clear. CARDIAC: Normal. ABDOMEN: Soft and nontender. Dressing is dry. IMPRESSION: Status post LS spine procedure. PLAN: Continue to monitor for any medical issues, but he is doing well. MMODL / IJN: [id number] /
== END 2023-01-13 15:15 | disposition home health service (06) | DRG 454 ==
LOC: 2ORMAIN 10:52 → 4SSUR 18:15
PROVIDERS: ADMIT Orthopaedic Surgery; ATTEND Orthopaedic Surgery
PROC: 0SG1071 Fusion of 2 or more Lumbar Vertebral Joints with Autologous Tissue Substitute, Posterior Approach, Posterior Column, Open Approach (ICD-10-PCS; 2023-01-10)
PROC: 0ST40ZZ Resection of Lumbosacral Disc, Open Approach (ICD-10-PCS; 2023-01-10)
PROC: 0ST20ZZ Resection of Lumbar Vertebral Disc, Open Approach (ICD-10-PCS; 2023-01-10)
PROC: 0SG10AJ Fusion of 2 or more Lumbar Vertebral Joints with Interbody Fusion Device, Posterior Approach, Anterior Column, Open Approach (ICD-10-PCS; 2023-01-10)
PROC: 0SP00AZ Removal of Interbody Fusion Device from Lumbar Vertebral Joint, Open Approach (ICD-10-PCS; 2023-01-10)
PROC: 0SJ30ZZ Inspection of Lumbosacral Joint, Open Approach (ICD-10-PCS; 2023-01-10)
PROC: 0SP30AZ Removal of Interbody Fusion Device from Lumbosacral Joint, Open Approach (ICD-10-PCS; 2023-01-10)
PROC: 8E0WXBZ Computer Assisted Procedure of Trunk Region (ICD-10-PCS; 2023-01-10)
PROC: 0SG107J Fusion of 2 or more Lumbar Vertebral Joints with Autologous Tissue Substitute, Posterior Approach, Anterior Column, Open Approach (ICD-10-PCS; principal; 2023-01-10 12:45)
DX: M48.061 Spinal stenosis, lumbar region without neurogenic claudication (principal); D62 Acute posthemorrhagic anemia; M96.0 Pseudarthrosis after fusion or arthrodesis; I10 Essential (primary) hypertension; J44.9 Chronic obstructive pulmonary disease, unspecified; M48.07 Spinal stenosis, lumbosacral region; R26.81 Unsteadiness on feet; G47.9 Sleep disorder, unspecified; M47.26 Other spondylosis with radiculopathy, lumbar region; M51.36 Other intervertebral disc degeneration, lumbar region; G89.29 Other chronic pain; E78.5 Hyperlipidemia, unspecified; F17.210 Nicotine dependence, cigarettes, uncomplicated; G89.18 Other acute postprocedural pain; Y83.8 Other surgical procedures as the cause of abnormal reaction of the patient, or of later complication, without mention of misadventure at the time of the procedure; Z77.090 Contact with and (suspected) exposure to asbestos; Z79.891 Long term (current) use of opiate analgesic; Z79.899 Other long term (current) drug therapy; Z28.311 Partially vaccinated for COVID-19; Z98.1 Arthrodesis status
CPT/HCPCS: 36415; 72100; 72131; 80048; 80053; 85025; 85027; 85610; 86850; 86900; 86901; 87070; 94760

== ENCOUNTER 2023-06-02 21:20 | Emergency (ER) | payer MEDICARE, OTHER ==
[2023-06-02 21:41] VITALS: RESP 18; TEMP 98.3
[2023-06-02] MEDS ORDERED: LIDOCAINE 5% PATCH TOPICAL STA (22:19)
[2023-06-02] MEDS ORDERED: HYDROmorphone 0.5 MG/0.5 ML SYRINGE IM STA (22:19)
[2023-06-02] MEDS ORDERED: methylPREDNISolone SOD SUCCI 125 MG/2 ML VIAL IM ONE (22:29)
[2023-06-02] MEDS ORDERED: HYDROmorphone 1 MG/ML 1 ML SYRINGE IM STA (23:06)
--- NOTE | 2023-06-03 00:11 | CT ---
EXAM: CT Lumbar Spine Without Intravenous Contrast CLINICAL HISTORY: ITS.REASON CT Reason: intractable pain TECHNIQUE: Axial computed tomography images of the lumbar spine without intravenous contrast. CTDI is 29.4 mGy and DLP is 1229.4 mGy-cm. This CT exam was performed using one or more of the following dose reduction techniques: automated exposure control, adjustment of the mA and/or kV according to patient size, and/or use of iterative reconstruction technique. COMPARISON: No relevant prior studies available. FINDINGS: Vertebrae: Status post L3 through biiliac instrumented fusion with a pedicle screw and lori construct. Disc spacers at L3-4, L4-5, and L5-S1. The canal has been decompressed from L1 to through L5-S1. No spinal canal stenosis. Foraminal stenosis most pronounced on the right at L5-S1 where it is mild. No acute fracture. Hardware is intact. Soft tissues: Postsurgical changes in the dorsal soft tissues. No collection. IMPRESSION: No acute abnormality.
--- NOTE | 2023-06-03 00:21 | ED ---
Back Pain HPI - General Chief Complaint: Back Pain/Injury Stated Complaint: Back Pain Time Seen by Provider: 06/02/23 22:00 Source: patient Limitations: no limitations - History of Present Illness Initial Comments: Patient is a 50-year-old male who presents the emergency department for back pain. Lumbar fusion in December states his pain has not improved since the surgery. It was performed by Dr. Don. Patient reports increased pain over the past week in his lower back which she describes as severe. Reports radiating pain, numbness, tingling down his left leg which is new. Denies numbness and tingling in the groin and buttocks region. Denies loss of bowel or bladder function. Patient states his left leg keeps giving out on him. He denies leg weakness. States he talked to Dr. Don's office who recommended patient come to the emergency department for imaging.8 - Related Data Home Medications Medication Instructions Recorded Confirmed Atorvastatin Calcium [Lipitor] 80 mg PO QAM 07/12/22 01/10/23 Fenofibrate Nanocrystallized 145 mg PO QAM 07/12/22 01/10/23 [Fenofibrate] atenoloL [Tenormin] 50 mg PO QAM 07/12/22 01/04/23 Pantoprazole [Protonix] 40 mg PO DAILY 01/04/23 01/04/23 Previous Rx's Medication Instructions Recorded Cyclobenzaprine [Flexeril] 10 mg PO TID #30 tab 01/13/23 Gabapentin 600 mg PO TID #60 tab 01/13/23 Sennosides/Docusate Sodium [Senna 1 each PO DAILY #20 capsule 01/13/23 Plus 8.6-50 mg Softgel] cefaDROXiL [Duricef] 500 mg PO Q12HR 5 Days #10 cap 01/13/23 oxyCODONE-APAP 10-325MG [Percocet 1 tab PO Q6HR PRN #28 tab 01/13/23 10-325 mg] Lidocaine 5% Patch [Lidoderm 5% 1 patch TOPICAL DAILY PRN #7 patch 06/03/23 Patch] predniSONE 50 mg PO DAILY #5 tab 06/03/23 Allergies Allergy/AdvReac Type Severity Reaction Status Date / Time No Known Allergies Allergy Verified 06/02/23 21:41 Review of Systems ROS Statement: Those systems with pertinent positive or pertinent negative responses have been documented in the HPI. ROS Other: All systems not noted in ROS Statement are negative. Past Medical History Past Medical History: GERD/Reflux, Hyperlipidemia, Hypertension, Musculoskeletal Disorder, Osteoarthritis (OA) Additional Past Medical History / Comment(s): DDD, "PALPITATIONS", "ASBESTOS EXPOSURE IN HIS LINE OF WORK", possible sleep apnea-but no sleep study done yet History of Any Multi-Drug Resistant Organisms: None Reported Past Surgical History: Back Surgery, Heart Catheterization, Orthopedic Surgery Additional Past Surgical History / Comment(s): EPIDURAL PAIN SHOTS, DECOMPRESSION NECK C6-7 neck fusion, RT ROTATOR CUFF. COLONOSCOPY/POLYPECTOMY, back surg. x2, L5-S1 fusion, cage L4-L5, microdiscectomy Past Anesthesia/Blood Transfusion Reactions: No Reported Reaction Past Psychological History: No Psychological Hx Reported Smoking Status: Current every day smoker Past Alcohol Use History: None Reported Past Drug Use History: None Reported - Past Family History Father Family Medical History: Cancer Additional Family Medical History / Comment(s): PANCREATIC CANCER. Mother Family Medical History: No Reported History Additional Family Medical History / Comment(s): "HEALTHY" General Exam Limitations: no limitations General appearance: alert Respiratory exam: Present: normal lung sounds bilaterally. Absent: respiratory distress, wheezes, rales, rhonchi, stridor Cardiovascular Exam: Present: regular rate, normal rhythm, normal heart sounds. Absent: systolic murmur, diastolic murmur, rubs, gallop, clicks GI/Abdominal exam: Present: soft, normal bowel sounds. Absent: distended, tenderness, guarding, rebound, rigid Back exam: Present: vertebral tenderness (lumbar) Neurological exam: Present: alert Expanded Sensory exam: Upper Extremity Light Touch: Normal, Lower Extremity Light Touch: Normal Motor strength exam: RUE: 5, LUE: 5, RLE: 5, LLE: 5 Psychiatric exam: Present: normal affect, normal mood Skin exam: Present: warm, dry, intact, normal color. Absent: rash Course Vital Signs 06/02/23 06/03/23 21:38 00:31 Temperature 98.3 F Pulse Rate 88 76 Respiratory 18 18 Rate Blood Pressure 136/94 138/93 O2 Sat by Pulse 95 95 Oximetry Medical Decision Making - Medical Decision Making Was pt. sent in by a medical professional or institution (Dr., PA, HOUSE MOVER HELPER, urgent care, hospital, or fpc...) When possible be specific @ -Dr. Don's office today Did you speak to anyone other than the patient for history (EMS, parent, family, police, friend...)? What history was obtained from this source @ -No Did you review nursing and triage notes (agree or disagree)? Why? @ -I reviewed and agree with nursing and triage notes Were old charts reviewed (outside hosp., previous admission, EMS record, old EKG, old radiological studies, urgent care reports/EKG's, fpc records)? Report findings @ -No old charts were reviewed Differential Diagnosis (chest pain, altered mental status, abdominal pain women, abdominal pain men, vaginal bleeding, weakness, fever, dyspnea, syncope, headache, dizziness, GI bleed, back pain, seizure, CVA, palpatations, mental health)? @ -Differential Back Pain: Strain, zoster, cauda equina syndrome, epidural abscess, vertebral osteomyelitis, discitis, fracture, subluxation, disc herniation, DJD, spinal stenosis, dissection, AAA, pancreatitis, peptic ulcer disease, pyelonephritis, kidney stone, this is not meant to be an all-inclusive list EKG interpreted by me (3pts min.). @ -As above X-rays interpreted by me (1pt min.). @ -None done CT interpreted by me (1pt min.). @ - no acute process U/S interpreted by me (1pt. min.). @ -None done What testing was considered but not performed or refused? (CT, X-rays, U/S, labs)? Why? @ -None What meds were considered but not given or refused? Why? @ -None Did you discuss the management of the patient with other professionals (professionals i.e. LUCIE Irby, HOUSE MOVER HELPER, lab, RT, psych nurse, social worker health services, comparative sociology professor, teacher, protective services officer, caser)? Give summary @ -No Was smoking cessation discussed for >3mins.? @ -No Was critical care preformed (if so, how long)? @ -No Were there social determinants of health that impacted care today? How? (Homelessness, low income, unemployed, alcoholism, drug addiction, transportation, low edu. Level, literacy, decrease access to med. care, fdc, rehab)? @ -No Was there de-escalation of care discussed even if they declined (Discuss DNR or withdrawal of care, Hospice)? DNR status @ -No What co-morbidities impacted this encounter? (DM, HTN, Smoking, COPD, CAD, Cancer, CVA, ARF, Chemo, Hep., AIDS, mental health diagnosis, sleep apnea, morbid obesity)? @ -None Was patient admitted / discharged? Hospital course, mention meds given and route, prescriptions, significant lab abnormalities, going to OR and other pertinent info. @ -Patient presenting with back pain. No neurological deficit on exam.Patient does have lumbar midline tenderness. Due to this along with severity of pain CT imaging was obtained which was interpreted by myself showing no change. Hardware intact. Patient given Dilaudid with little relief. He was then given a second dose with some relief. Did offer patient admission for intractable back pain he declined. Patient in stable medical condition for discharge. He will be discharged with prednisone course for lumbar radiculopathy. He will follow up with Dr. Don Undiagnosed new problem with uncertain prognosis? @ -No Drug Therapy requiring intensive monitoring for toxicity (Heparin, Nitro, Insulin, Cardizem)? @ -No Were any procedures done? @ -No Diagnosis/symptom? @ -Lumbar radiculopathy Acute, or Chronic, or Acute on Chronic? @ -Acute on chronic Uncomplicated (without systemic symptoms) or Complicated (systemic symptoms)? @Uncomplicated Side effects of treatment? @ -No Exacerbation, Progression, or Severe Exacerbation? @ -No Poses a threat to life or bodily function? How? (Chest pain, [place], [place], pneumonia, PE, COPD, DKA, ARF, appy, cholecystitis, CVA, Diverticulitis, Homicidal, Suicidal, threat to staff... and all critical care pts) @ -No Dr. Dodge is my attending Disposition Clinical Impression: Lumbar radiculopathy Disposition: HOME SELF-CARE Condition: Good Instructions (If sedation given, give patient instructions): Lumbar Radiculop athy (ED) Additional Instructions: Take medication as directed. Please follow-up with Florencia Lockwood in 1-2 days. Return to the emergency department if you experience new, concerning, or worsening symptoms. Prescriptions: Lidocaine 5% Patch [Lidoderm 5% Patch] 1 patch TOPICAL DAILY PRN #7 patch PRN Reason: Pain predniSONE 50 mg PO DAILY #5 tab Is patient prescribed a controlled substance at d/c from ED?: No Referrals: Baudilio Leblanc MD [Primary Care Provider] - 1-2 days
[2023-06-03 00:33] VITALS: BP 138/93; PULSE 76
== END 2023-06-03 00:33 | disposition home or self-care (01) ==
LOC: EC 21:20
DX: M54.16 Radiculopathy, lumbar region (principal); I10 Essential (primary) hypertension; K21.9 Gastro-esophageal reflux disease without esophagitis; E78.5 Hyperlipidemia, unspecified; F17.200 Nicotine dependence, unspecified, uncomplicated; Z79.899 Other long term (current) drug therapy
CPT/HCPCS: 72131; 99284; 96372 ×3; J2930; J1170 ×2

== ENCOUNTER → 2023-07-11 | Outpatient (CLI) | payer MEDICARE, OTHER ==
--- NOTE | 2023-07-13 14:56 | MR ---
EXAMINATION TYPE: MR lumbar spine wo/w con DATE OF EXAM: 07/11/2023 COMPARISON: Plain films 06/05/2023 HISTORY: Low back pain with weakness left leg CONTRAST: 8.5 mL intravenous Gadavist. TECHNIQUE: Multiplanar, multisequence images of the lumbar spine were acquired. FINDINGS: Postsurgical changes are present through the lumbar spine. Pedicle screws contribute to si gnificant susceptibility artifact. L3-S1 levels are essentially nondiagnostic. L2-3: Facet hypertrophy has some posterior lateral thecal sac compression. Some mild spinal canal mahsa rowing may be present. Minimal disc bulge may be present with anterior thecal sac flattening. L1-2: Some central minimal disc bulge is present within the intrathecal sac compression. This is mild anterior thecal sac compression. Facet hypertrophy is present. No AP spinal canal stenosis is presen t. Neural foramen are patent. No suspicious enhancement is identified. IMPRESSION: 1. Small central disc bulge at L1-2 with mild anterior thecal sac compression. 2. Facet hypertrophy and mild disc bulging at L2-3. 3. Remaining levels are essentially nondiagnostic due to significant metallic susceptibility artifact .
== END | disposition home or self-care (01) ==
LOC: RADMRIMAIN 21:45
PROVIDERS: ATTEND Orthopaedic Surgery
DX: M51.16 Intervertebral disc disorders with radiculopathy, lumbar region (principal); M47.26 Other spondylosis with radiculopathy, lumbar region
CPT/HCPCS: 72158; A9585

== ENCOUNTER → 2023-11-10 | Outpatient (CLI) | payer MEDICARE ==
--- NOTE | 2023-11-10 16:17 | CT ---
EXAMINATION TYPE: CT lumbar spine wo con DATE OF EXAM: 11/10/2023 4:11 PM COMPARISON: CT lumbar spine June 02, 2023 HISTORY: low back pain CT DLP: 970.0 mGycm Automated exposure control for dose reduction was used. Unenhanced CT of the lumbar spine was performed. Bone and soft tissue window settings are submitted as well as coronal and sagittal reconstructions. There are 5 lumbar-type vertebra. Lumbar spine shows stable and satisfactory alignment. Posterior to the rods and screws transfix L3-S1 levels bilaterally similar to prior. Fusion hardware extends throu gh the bilateral sacroiliac joints similar to prior. Left screw extends into the deep posterior glute al muscle axial image 96 similar to prior. Artificial disc material at these levels is redemonstrated . Persistent mild to moderate disc space narrowing is mild spurring at L1-L2 level. Persistent rheostat assembler ior decompression changes posteriorly at the L1 and L2 levels. Extensive scar tissue posteriorly is a gain seen. Paraspinal muscle bulk is maintained. Appendix within normal limits from the cecum. Sigmoi d colonic diverticula are present. IMPRESSION: No acute findings are seen. No significant change from prior CT.
== END | disposition home or self-care (01) ==
LOC: RADCTMAIN 15:26
PROVIDERS: ATTEND Orthopaedic Surgery
DX: M54.50 Low back pain, unspecified (principal)
CPT/HCPCS: 72131

== ENCOUNTER → 2024-02-01 | Outpatient (CLI) | payer MEDICARE ==
--- NOTE | 2024-02-07 11:34 | MR ---
EXAMINATION TYPE: MR cervical spine wo con DATE OF EXAM: 02/01/2024 5:19 PM COMPARISON: 6 HISTORY: Neck pain, left arm numbness, history of surgery Multiplanar MultiSpin echo imaging of the cervical spine was performed. Comparison: 01/22/2019 C2-C3: No evidence for degenerative disc disease. No disc bulge/herniation or protrusion. No Canal stenosis. Foramina are patent bilaterally. C3-C4: No evidence for degenerative disc disease. No disc bulge/herniation or protrusion. No Canal stenosis. Foramina are patent bilaterally. C4-C5: No evidence for degenerative disc disease. No disc bulge/herniation or protrusion. No Canal stenosis. Foramina are patent bilaterally. C5-C6: Mild disc desiccation and posterior disc bulge and mild facet partially encapsulating spur not ed. There is effacement of the ventral thecal sac without central stenosis. There is moderate left-si ded foraminal encroachment of mild right-sided foraminal encroachment at this level. C6-C7: Postoperative changes of fusion anterior cervical discectomy and fusion noted. Anterior fixati on plate is seen. Postoperative alignment is anatomic. No evidence for recurrent or residual disease. C7-T1: No evidence for degenerative disc disease. No disc bulge/herniation or protrusion. No Canal stenosis. Foramina are patent bilaterally. Cervical segments are intact. There is normal alignment. Cervical spinal cord is of normal signal. Craniovertebral junction relationships are within normal limits. IMPRESSION: 1. Stable postoperative changes of ACDF. 2. Disc desiccation with posterior disc bulge and partially encapsulating spur at C5-6. Effacement of the ventral thecal sac and bilateral foraminal encroachment as noted above.
== END | disposition home or self-care (01) ==
LOC: RADMRIMAIN 16:33
PROVIDERS: ATTEND Orthopaedic Surgery
DX: M50.022 Cervical disc disorder at C5-C6 level with myelopathy (principal); M50.20 Other cervical disc displacement, unspecified cervical region; R20.0 Anesthesia of skin; Z98.890 Other specified postprocedural states
CPT/HCPCS: 72141

== ENCOUNTER → 2024-03-22 | Outpatient (CLI) | payer MEDICARE ==
--- NOTE | 2024-03-22 10:12 | MR ---
EXAMINATION TYPE: MR tspine/lspine wo/w con DATE OF EXAM: 03/22/2024 COMPARISON: CT 11/10/2023 and MRI lumbar spine 07/11/2023 HISTORY: 59-year-old male M54.6, Low back pain into left leg weakness, Hx of lspine surgery TECHNIQUE: Multiplanar, multisequence images of the thoracic and lumbar spine were obtained before an d after administration of 8.5 mL intravenous Gadavist gadolinium contrast. FINDINGS: THORACIC SPINE: Post surgical change at C6-C7 ACDF in the visualized cervical spine. There is some posterior disc ost eophyte complex along the fusion at C5-C6 mild narrowing the spinal canal here. Heterogeneous marrow signal suggesting red marrow hyperplasia. No suspicious bone marrow replacement. Mild multilevel degenerative disc disease with small disc protrusion such as at T1-T2, T2-T3, T11-T12 but without significant spinal canal stenosis. There is scattered mild to moderate facet arthropathy especially mid to lower thoracic spine. Mild ri ght-sided neuroforaminal stenosis T8-T9. No high-grade foraminal compromise is identified. Vertebral body heights are preserved and alignment is maintained. Normal course, caliber, signal intensity of the cervical spinal cord. No abnormal enhancement within the spinal canal. Conus medullaris is normal. Ectatic upper descending thoracic aorta to 3.3 cm. Underlying 1.8 cm low density nodule left adrenal gland when correlating with CT of 11/10/2023 suggest ing an benign adrenal adenoma. Otherwise, no no prevertebral paravertebral soft tissue abnormality seen. LUMBAR SPINE: Extensive postsurgical change of L3 through pelvic posterior and interbody fusion. Corresponding lami nectomies. The spinal canal along the surgical levels appears patent though there is extensive metal artifact limiting the evaluation. Above the fusion at L2-L3, there is diffuse disc bulge with posterior annular fissure. This continues to moderate spinal canal stenosis. There is moderate bilateral facet arthropathy as well contributin g to at least moderate bilateral neural foraminal stenosis, left greater than right. At L1-L2, diffuse disc bulge impressing on the ventral thecal sac but without significant spinal erin l stenosis. Mild facet arthropathy with minimal inferior foraminal narrowing on the left. Neuroforamen are not well characterized along the fused levels. The extensive metal artifact makes it difficult to assess for any abnormal enhancement along the surg ical levels. Vertebral body heights are preserved and alignment is maintained. Benign right renal cysts measuring up to 1.7 cm. IMPRESSION: THORACIC SPINE: 1. Mild multilevel degenerative disc disease with small disc protrusions particularly at T1-T2, T2-T3 , and T11-T12. No large focal disc herniation or significant spinal canal stenosis. 2. Some scattered facet arthropathy mid to lower thoracic spine. Mild right neuroforaminal stenosis a t T8-T9. 3. Incidental 1.8 cm left adrenal adenoma. LUMBAR SPINE: 4. Degenerative disc disease above the fusion at L2-L3 has progressed from 07/11/2023 now with greater degree of disc desiccation and disc bulging. This contributes to moderate focal spinal canal stenosi s. While there is similar moderate facet arthropathy here, the moderate bilateral neuroforaminal sten oses also appears to have increased. Possible moderate to severe on the left. 5. Extensive postsurgical changes of L3 through pelvic posterior and interbody fusion with correspond ing laminectomies. The spinal canal along the surgical levels appears grossly patent remains limited. Unable to adequately assess the neuroforamen due to the extensive metal artifact.
== END | disposition home or self-care (01) ==
LOC: RADMRIMAIN 06:50
PROVIDERS: ATTEND Orthopaedic Surgery
DX: M47.814 Spondylosis without myelopathy or radiculopathy, thoracic region (principal); M51.35 Other intervertebral disc degeneration, thoracolumbar region; M99.72 Connective tissue and disc stenosis of intervertebral foramina of thoracic region; D35.02 Benign neoplasm of left adrenal gland
CPT/HCPCS: 72157; 72158; A9585

== ENCOUNTER → 2024-05-02 | Outpatient (CLI) | payer MEDICARE | END | disposition home or self-care (01) | LOC: LABPAT 11:52 | PROVIDERS: ATTEND Orthopaedic Surgery | DX: Z01.812 Encounter for preprocedural laboratory examination (principal); M48.062 Spinal stenosis, lumbar region with neurogenic claudication; M51.36 Other intervertebral disc degeneration, lumbar region; Z22.322 Carrier or suspected carrier of Methicillin resistant Staphylococcus aureus | CPT/HCPCS: 86850; 86900; 86901; 87070 ==

== ENCOUNTER 2024-05-09 05:34 | Inpatient (IN) | payer MEDICARE ==
[2024-05-03 12:29] VITALS: BMI 28.0
[~2024-05-09 05:34] MED LIST changes: -ACETAMINOPHEN TAB 500 MG TAB PO PRN; -GABAPENTIN 300 MG CAP PO PRN; +ONDANSETRON 4 MG/2 ML VIAL IVP PRN; +TRANEXAMIC 1,000 MG/100ML-NACL 1,000 MG in SALINE 1 100ML.BAG IVPB PRN; -TRANEXAMIC ACID IN NACL,ISO-OS 1,000 MG in SALINE 1 100ML.BAG IVPB PRN; -fentaNYL (PF) 50 MCG/ML 2 ML AMP IV PRN
[2024-05-09] MEDS ORDERED: droPERidol 5 MG/2 ML VIAL IVP PRN (05:44)
[2024-05-09] MEDS: ACETAMINOPHEN TAB 500 MG TAB PO PRN (06:11)
[2024-05-09] MEDS: GABAPENTIN 300 MG CAP PO PRN (06:11)
[2024-05-09] MEDS: LIDOCAINE 1% (10MG/ML) FOR IV START INTRADERMA PRN (06:15)
[2024-05-09] MEDS: LACTATED RINGERS 1,000 ML IV SCH (06:15)
[2024-05-09] MEDS: IV FLUID CONTINUATION 1,000 ML IV ONE ×2 (06:15)
[2024-05-09] MEDS: ONDANSETRON 4 MG/2 ML VIAL IVP ONE (06:19)
[2024-05-09] MEDS: DEXAMETHASONE SOD PHOSPHATE 4 MG/ML 1 ML VIAL IV ONE (06:19)
[2024-05-09] MEDS: MIDAZOLAM 2 MG/2 ML VIAL IV ONE (06:46)
--- NOTE | 2024-05-09 06:50 | P.HPOR ---
History of Present Illness H&P Date: 05/02/24 .D:Date: 05/02/24 : 11:35am .T:Title: H1 [facility] Age: 59 year Height: 5'7" Weight: 185 lbs BP:123/86 BMI: 28.97 kg/m2 Occupation: Retired VAS: 7 IMPRESSION: It was my pleasure to have seen and examinedMoy. I reviewed the patient's clinical syndrome, physical findings, and imaging studies during the appointment today. It is my impression that the patient has a diagnosis of. 1. 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 Bilateral lower extremity radiculopathy 3. Neurogenic claudication 4. Proximal junctional kyphosis 5. s/p L2-S1 revision decompression and L4-S1 fusion Spine Surgery Risk Review Mr. Burns is presenting for evaluation of low back and bilateral lower extremity pain, bilateral lower extremity numbness, tingling and weakness. It was my pleasure to have seen and examined Mr. Burns. In our visit today we have had a chance to go over subjective complaints, physical examination findings and treatments including the natural course history without intervention and various interventional options. The patients imaging demonstrates: XRAY - Re-reviewed with the patient today. Date: 01/10/2024 Location: [facility] Region: Lumbar Views: AP & LAT Hardware in good position. ASD noted above his fusion at L3-4, L2-3 with disc collapse, retrolisthesis as well as facet arthropathy. These areas are hypermobile as well and likely causing him pain. No acute fracture or lesions noted. CT scan completed at [facility] on 11/10/2023 of the Lumbar Spine: - Re-reviewed with the patient today. No suggestion of any hardware failure, stenosis or other issues that might account for his symptoms as of now. His alignment is stable. His hardware is stable. His decompression is adequate. There is moderate ASD noted at L2-3 and 3-4 noted without severe stenosis, moderate at this time. No other complicating process seen at this time. MRI scanfrom07/11/23 taken at [facility] [place]: - Re-reviewed with the patient today. s/p L2-S1 revision Decompression and fusion with ASD with possible continued stenosis L3-4. There is ASD at L1-2 which has a disc bulge and facet arthropathy contributing to some moderate central stenosis. No fractures no lesion otherwise noted. The decompressed area is very reasonable down low without evidence of severe stenosis. On physical exam, Mr. Burns demonstrates: A worsening throbbing, shooting pain throughout the low back that radiates down into the bilateral lower extremities. He notes progressive left leg weakness. He notes several falls due to his worsening left leg weakness. He notes continued numbness and tingling throughout the bilateral lower extremities. He states every morning his left leg, distal to the knee, locks up and spasms. H states his symptoms worsen after all activity. He states his lumbar symptoms have become debilitating. I have explained to the patient that as their condition progresses it will cause further neurological deficits and eventual paralysis. Based on the patients imaging, physical exam, and the rapid progression and disabling nature of their symptoms, at this time I recommend surgery in the form of a: Revision [id number] decompression and fusion . I discussed the risk and benefits of this procedure at length with Mr. Burns. The patient agreed to considered pursuing the procedure abovementioned. Prior to surgery, she should follow up with her PCP (Cardio, ID, IM etc) for clearance. Questions were invited and answered, and the patient wishes to proceed as outlined below. Currently, I am recommendin.Revision G35-[id number] decompression and fusion 2.Review of surgical risks and benefits as well as an educational packet on the proposed surgical procedure. Risks: All surgical procedures come with inherent risks, including those related to positioning, anesthesia, intraoperative findings, and postoperative complications. It is important to understand that surgery does not come with any guarantee of a successful outcome as complications and adverse events are always possible. The patient was given a handout in office today discussing the surgical procedure and risks associated with the intervention, both of which were discussed with the patient. These risks include but are not limited to the following: * Experiencing same, different or even worse symptoms in back, neck, arms, or legs compared to before surgery. Requiring further surgery or other forms of treatment presently or at some time in the future at same or other levels of the intended spine surgery. On an extreme but fortunately relatively rare basis severe complication such as blindness, stroke, heart attack, temporary and/or permanent nerve injury, paralysis, coma, or may occur, sometimes without known explanation. Surgical complications may include but are not limited to risk of infection, fluid accumulation in the surgical dissection site, including a seroma or hematoma, that requires additional surgery, wound drainage, bleeding, new numbness or weakness, vision changes/loss, spinal fluid leakage, non-healing and/or infected incision, headaches, difficulty or inability to swallow, hoarseness, hemopneumothorax, pneumothorax, impotence, retrograde ejaculation, vaginal dryness; injury to nerves, spinal cord, blood vessels, lymphatics or other vital organs (i.e., bowel injury, injury to the great vessels); heterotop ic bone formation; complications related to the hardware such as screws, rods, cages including misplaced hardware, device failure, instrumentation at the wrong spine level, hardware fracture/breakage, or hardware loosening; vertebral failure of the spinal column above or below the newly placed hardware; retained surgical instrumentations or devices and the need for further surgery. * Medical risks of the planned spine surgery include but are not limited to generalized Infections to the whole body or local areas outside of the surgical site (sepsis), heart attack, bleeding, anaphylaxis, meningitis, seizure, epilepsy, hearing loss, burn diaz, laceration of the head or other areas of the body, bruising, hypersensitivity of the skin, bladder over distension; allergic reaction; shoulder injury related to positioning; fat, blood and air clots to other areas of the body like heart, lungs, brain; failure of internal organs such as lungs, kidneys, liver and excessive bleeding. If blood transfusions are necessary, note that transfusions may cause intolerance reactions such as anaphylaxis or other complex reactions. Despite best efforts, the results of spine surgery might not heal in terms of bone, soft tissues such as skin, fascia, ligaments, and joints. Additionally, in order to achieve best possible results, spine surgery may be carried out beyond the initially planned levels and involve decompression, fusion including insertion of hardware at levels other than the original intended area of surgical interest change some portions of the procedure in order to ensure the best possible outcomes. With spine surgery and spinal fusion, there are different off label uses of instrumentation (devices, implants and hardware) as well as biological substances (bone morphogenic proteins, demineralized bone matrix) as well as using extra bone from allograft sources (i.e. cadaver bone) or autograft (iliac crest bone, ribs, or the spine itself). The patient has been given information about these practices and their inherent risks and benefits. [facility] is an educational center that serves as a training facility for neurosurgical and orthopedic [employer] and Nursing students. Physician assistants are medically trained surgical providers who function in the outpatient, inpatient, and operating room setting under the direct supervision of the attending surgeon. [facility] has multiple operating rooms with single and overlapping rooms running daily. They currently function under the required guidelines as produced by the [facility] Finance Committee with regards to the overlapping rooms and will continue to comply with changes to this policy as they occur. The requirements include and are complied with as follows: (1) the critical portions of the overlapping rooms will not occur at the same time, (2) the attending physician will be physically present during the critical portions of the procedure and immediately available during the entire case, and (3) a back-up attending is designated should the primary attending not be immediately available. The patient has had a chance to review all the listed information, has been given print outs detailing this information, and has had all his/her questions answered to their satisfaction. It was my pleasure to have seen and examined Mr. Burns. In our visit today we have had a chance to go over my understanding of our patient's current condition, the natural course history without intervention and various interventional options. Questions were invited and answered, and the patient wishes to proceed as outlined above. I have seen and examined the patient for 25 minutes and we have spent more than 50% of the time in repeat and detailed counseling about the patient's condition, its natural course history with out and as much as can be predicted with surgery and re-review of various surgical treatment options. In conclusion, Mr. Burns requested we proceed with the above suggested surgery and are willing to accept risks and limitations of the suggested surgery as nature of the disease process and our best attempts at treatment for the condition. FOLLOW UP: Post Procedure PATIENT EDUCATION: Medications Reviewed: YES In our visit today Mr. Burns and I have had a chance to go over my understanding of the patient's current condition, the natural course history without intervention and various interventional options. Questions were invited and answered, and the patient wishes to proceed as outlined above. I will be sure to keep you updated after Mr. Burns returns here for further follow-up. Thank you again for your referral. Please do not hesitate to contact me if you have any further questions. Signed and authenticated by: Brayan Don DO [facility] Minimally Invasive Spine Surgery [address] [place] [address] This message is confidential, intended only for the named recipient(s) and may contain information that is privileged or exempt from disclosure under applicable law. If you are not the intended recipient(s), you are notified that the dissemination, distribution or copying of this information is strictly prohibited. If you received this message in error, please notify the sender then delete this message. # SIGNED BY Brayan Don (GOO)05/06/2024 07:21AM Past Medical History Past Medical History: Chest Pain / Angina, GERD/Reflux, Hyperlipidemia, Hypertension, Musculoskeletal Disorder, Osteoarthritis (OA) Additional Past Medical History / Comment(s): DDD, "PALPITATIONS", "ASBESTOS EXPOSURE IN HIS LINE OF WORK", possible sleep apnea-but no sleep study done yet. Per pt, he went to see Dr. Maria February 2024-had Stress test and echo- "Everything checked out ok." "I think it was anxiety." History of Any Multi-Drug Resistant Organisms: None Reported Past Surgical History: Back Surgery, Heart Catheterization, Orthopedic Surgery Additional Past Surgical History / Comment(s): EPIDURAL PAIN SHOTS, DECOMPRESSION NECK C6-7 neck fusion, RT ROTATOR CUFF. COLONOSCOPY/POLYPECTOMY, back surg. x2, L5-S1 fusion, cage L4-L5, microdiscectomy Past Anesthesia/Blood Transfusion Reactions: No Reported Reaction Smoking Status: Current every day smoker - Past Family History Father Family Medical History: Cancer Additional Family Medical History / Comment(s): PANCREATIC CANCER. Mother Family Medical History: No Reported History Additional Family Medical History / Comment(s): "HEALTHY" Medications and Allergies Home Medications Medication Instructions Recorded Confirmed Type Atorvastatin Calcium [Lipitor] 80 mg PO QAM 07/12/22 05/03/24 History Fenofibrate Nanocrystallized 145 mg PO QAM 07/12/22 05/03/24 History [Fenofibrate] atenoloL [Tenormin] 50 mg PO QAM 07/12/22 05/03/24 History Pantoprazole [Protonix] 40 mg PO QAM 01/04/23 05/03/24 History Cyclobenzaprine [Flexeril] 10 mg PO TID #30 tab 01/13/23 05/03/24 Rx Gabapentin 600 mg PO TID #60 tab 01/13/23 05/03/24 Rx Hydrocodone-Acetamin 1 dose PO QID PRN 05/03/24 05/03/24 History Allergies Allergy/AdvReac Type Severity Reaction Status Date / Time No Known Allergies Allergy Verified 05/03/24 12:18 Physical Examination Osteopathic Statement: *. No significant issues noted on an osteopathic structural exam other than those noted in the History and Physical/Consult. Assessment and Plan (1) Adjacent segment disease Current Visit: Yes Status: Acute Code(s): CME0187 - SNOMED Code(s): 15145168 (2) Pseudoarthrosis of lumbar spine Current Visit: Yes Status: Acute Code(s): S32.009K - UNSP FRACTURE OF UNSP LUM VERTEBRA, SUBS FOR FX W NONUNION SNOMED Code(s): 159987308 (3) History of lumbar spinal fusion Current Visit: Yes Status: Acute Code(s): Z98.1 - ARTHRODESIS STATUS SNOMED Code(s): 85353702281873 (4) Muscle weakness of lower extremity Current Visit: Yes Status: Acute Code(s): M62.81 - MUSCLE WEAKNESS (GENERALIZED) SNOMED Code(s): 140002922 (5) Low back pain Current Visit: Yes Status: Acute Code(s): M54.50 - LOW BACK PAIN, UNSPECI FIED SNOMED Code(s): 073631803 (6) Failed back syndrome of lumbar spine Current Visit: Yes Status: Acute Code(s): M96.1 - POSTLAMINECTOMY SYNDROME, NOT ELSEWHERE CLASSIFIED SNOMED Code(s): 085073347 (7) Bilateral sacroiliitis Current Visit: Yes Status: Acute Code(s): M46.1 - SACROILIITIS, NOT ELSEWHERE CLASSIFIED SNOMED Code(s): 15364870082991968 (8) Flat back syndrome Current Visit: Yes Status: Acute Code(s): M40.30 - FLATBACK SYNDROME, SITE UNSPECIFIED SNOMED Code(s): 343888542
--- NOTE | 2024-05-09 06:52 | P.PN ---
Progress Note - Text Progress Note Date: 05/09/24 History and Physical UPDATE I have seen and examined the patient and reviewed the history and physical. There appear to be no significant changes in the patient's current medical status as outlined in the current History and Physical.
[2024-05-09] MEDS ORDERED: fentaNYL (PF) 50 MCG/ML 2 ML AMP ONE (07:30)
[2024-05-09] MEDS ORDERED: SUCCINYLCHOLINE CHLORIDE 200 MG/10 ML VIAL IV ONE (07:30)
[2024-05-09] MEDS ORDERED: PROPOFOL 10 MG/ML 20 ML VIAL IV ONE (07:30)
[2024-05-09] MEDS ORDERED: MIDAZOLAM 2 MG/2 ML VIAL ONE (07:30)
[2024-05-09] MEDS ORDERED: PHENYLEPHRINE 10 MG/ML VIAL ONE (07:30)
[2024-05-09] MEDS ORDERED: ALBUMIN HUMAN 5% (25gm) 500 ML VIAL IVPB ONE (07:30)
[2024-05-09] MEDS: atenoloL 50 MG TAB PO STA (07:30)
[2024-05-09] MEDS ORDERED: TRANEXAMIC 1,000 MG/100ML-NACL PREMIX BAG ONE (07:30)
[2024-05-09] MEDS ORDERED: KETAMINE HCL IN 0.9 % NACL 50 MG/5 ML SYRINGE ONE (07:30)
[2024-05-09] MEDS ORDERED: ROCURONIUM 10 MG/ML (5 ML VIAL) IV ONE (07:30)
[2024-05-09] MEDS ORDERED: HYDROmorphone (PF) 1 MG/ML ONE (07:30)
[2024-05-09] MEDS ORDERED: ePHEDrine 50 MG/ML 1 ML VIAL ONE (07:30)
[2024-05-09] MEDS ORDERED: LIDOCAINE 1% INJ 10MG/ML (20 ML MDV) ONE (07:30)
[2024-05-09] MEDS: LACTATED RINGERS 1,000 ML IV ONE ×3 (08:01→11:40)
[2024-05-09] MEDS: ceFAZolin 3,000 MG in SODIUM CHLORIDE 0.9% IRRIGATIO 3,000 ML IRRIGATION ONE (08:13)
[2024-05-09] MEDS: GENTAMICIN 80 MG in SODIUM CHLORIDE 0.9% IRRIGATIO 3,000 ML IRRIGATION ONE (08:13)
[2024-05-09] MEDS: THROMBIN (BOVINE) 5,000 UNIT VIAL TOPICAL ONE (08:13)
--- NOTE | 2024-05-09 09:01 | P.ANPRN ---
Procedure Note - Anesthesia - Invasive Line Left Arterial Line Time Out Performed: Yes Date of Procedure: 05/09/24 Time of Procedure: 06:52 Location of Patient: PreOp Preparation: Sterile Prep Arterial Line Location: Radial Needle Guage: 20 Image Stored and Saved: Yes Narrative: Left radial arterial line placed using Seldinger technique w/ u/s guidance
[2024-05-09] MEDS: SODIUM CHLORIDE 0.9% 100 ML with ceFAZolin 2,000 MG IV ONE (11:45)
[2024-05-09] MEDS: VANCOMYCIN 1,000 MG VIAL MISCELLANE ONE (13:10)
--- NOTE | 2024-05-09 13:57 | XR ---
Fluoroscopy INDICATION: Pain FINDINGS: Fluoroscopy time: Not recorded seconds. Total dose area product (DAP) in uGy*m?, mGy*cm? (or similar): Not recorded Images obtained: 0. IMPRESSION: 1. Documentation of fluoroscopy.
--- NOTE | 2024-05-09 13:58 | FL ---
Fluoroscopy INDICATION: Pain FINDINGS: Fluoroscopy time: 41 seconds. Total dose area product (DAP) in uGy*m?, mGy*cm? (or similar): 40.2566 Images obtained: 0. IMPRESSION: 1. Documentation of fluoroscopy.
[2024-05-09 14:04] LABS: ABG Base Excess -4.7 mmol/L; ABG Glucose Whole Blood 164 mg/dL (75-99); ABG HCO3 20 mmol/L (21-25); ABG Hematocrit 33 % (34.0-46.0); ABG Ionized Calcium 4.5 mg/dL (4.5-5.3); ABG Oxygen Saturation 98.7 % (94-97); ABG PCO2 36 mmHg (35-45); ABG PH 7.36 (7.35-7.45); ABG PO2 166 mmHg (83-108); ABG Potassium Whole Blood 3.7 mmol/L (3.4-4.5); ABG Sodium Whole Blood 139 mmol/L (135-146); ABG TCO2 19 mmol/L (19-24)
[2024-05-09] MEDS ORDERED: MAGNESIUM HYDROXIDE 2,400 MG/30 ML CUP PO PRN (14:04)
[2024-05-09 14:18] LABS: ABG Lactic Acid Whole Blood 3.9 mmol/L (0.5-1.6)
[2024-05-09] MEDS: ONDANSETRON 4 MG/2 ML VIAL IVP PRN (14:50)
[2024-05-09] MEDS: HYDROmorphone 0.5 MG/0.5 ML SYRINGE IVP PRN ×2 (14:59→22:10)
[2024-05-09] MEDS: HYDROmorphone 1 MG/ML 1 ML SYRINGE IVP PRN (16:02)
[2024-05-09] MEDS: GABAPENTIN 300 MG CAP PO SCH (17:30)
[2024-05-09] MEDS: CYCLOBENZAPRINE 10 MG TAB PO SCH (17:30)
[2024-05-09] MEDS: oxyCODONE-APAP 7.5-325MG 1 EACH TAB PO SCH (17:30)
[2024-05-09] MEDS: KETOROLAC 15 MG/ML 1 ML VIAL IVP SCH (17:31)
--- NOTE | 2024-05-09 17:43 | CT ---
EXAMINATION TYPE: CT thor lumbar spine wo con DATE OF EXAM: 05/09/2024 COMPARISON: 11/10/2023 HISTORY: revision [id number] decompression and fusion CT DLP: 1772.6 mGycm Automated exposure control for dose reduction was used. Contrast: None Technique: Axial images 3 mm thick sections. Reconstructed images coronal and sagittal plane FINDINGS: Small bilateral pleural effusions are present. Pedicle screws are present T10-L4. Disc spacers noted at L5 or 5 L5-S1 as well as L2-3 and L3-4. Post surgical changes are posterior to the upper lumbar spine. Vertebral body heights appear preserved. Beam Rincon artifact from metallic artifact is evident. No obvious severe stenosis evident. Postsurg ical changes are evident within the paraspinal soft tissues posterior to the spinal canal. IMPRESSION: 1. REVISION WITH PEDICLE SCREWS AND FIXATION RODS PLACE NOW EXTENDING FROM T10 TO L5-S1.
[2024-05-10 06:48] LABS: Basophils % (A) 0 %; Eosinophils # (A) 0.1 k/uL (0-0.7); Eosinophils % (A) 1 %; HCT 29.9 % (39.0-53.0); HGB 10.3 gm/dL (13.0-17.5); Lymphocytes # (A) 1.2 k/uL (1.0-4.8); Lymphocytes % (A) 20 %; MCHC 34.4 g/dL (31.0-37.0); MCV 92.9 fL (80.0-100.0); Monocytes # (A) 0.4 k/uL (0-1.0); Monocytes % (A) 6 %; Neutrophils # (A) 4.3 k/uL (1.3-7.7); Neutrophils % (A) 71 %; Platelet Count 175 k/uL (150-450); RBC 3.22 m/uL (4.30-5.90); WBC 6.1 k/uL (3.8-10.6)
[2024-05-10] MEDS ORDERED: oxyCODONE-APAP 7.5-325MG 1 EACH TAB PO PRN (07:20)
[2024-05-10] MEDS: SENNOSIDES-DOCUSATE SODIUM 1 EACH TAB PO SCH (08:59)
[2024-05-10] MEDS: DEXAMETHASONE SOD PHOSPHATE 10 MG/ML 1 ML VIAL IV STA (08:59)
[2024-05-10] MEDS: CHOLECALCIFEROL 125 MCG (5000 IU) TABLET PO SCH (08:59)
[2024-05-10] MEDS: CAFFEINE-SODIUM BENZOATE 500 MG in SODIUM CHLORIDE 0.9% 100 ML IVPB ONE (08:59)
[2024-05-10] MEDS: atenoloL 50 MG TAB PO SCH (08:59)
--- NOTE | 2024-05-10 10:18 | P.PN ---
Subjective Progress Note Date: 05/10/24 Principal diagnosis: 1. 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 Bilateral lower extremity radiculopathy 3. Neurogenic claudication 4. Proximal junctional kyphosis 5. s/p L2-S1 revision decompression and L4-S1 fusion Patient seen and examined this morning. He is currently resting in bed. Patient states his pain is managed at this time. He does report that he has not been up since the procedure. He is looking forward to working with PT. He states he has noticed improvement in the radiculopathy and weakness to the left lower ex tremity since the procedure. Surgical incision to the thoracolumbar spine, dressing is CDI. Hemovac present with documented 240ml sanguineous output over night. Continue to encourage patient to be up in chair for all meals and use of incentive spirometer 10x/hr while awake. Objective - Vital Signs Vital signs: Vital Signs Temp 98.4 F 05/10/24 01:01 Pulse 81 05/10/24 01:01 Resp 18 05/10/24 01:01 BP 102/66 05/10/24 01:01 Pulse Ox 96 05/10/24 01:01 FiO2 Intake & Output 05/09/24 05/10/24 05/10/24 18:59 06:59 18:59 Intake Total 2752 Output Total 1550 2610 Balance 1202 -2610 Weight 83.4 kg Intake: IV 2752 Output: Drainage 560 Back 560 Urine 850 2050 Estimated Blood Loss 700 Other: Voiding Method Indwelling Catheter - Exam Physical Examination General: The patient is awake and alert, in no acute distress Skin: Skin is warm and dry with no obvious rashes or lesions. Surgical incision to the thoracolumbar spine, dressing is CDI. Hemovac is present with 240ml output overnight. Eye: Pupils are equal, round and reactive to light, extra-ocular movements are intact; there is normal conjunctiva bilaterally. Neck: The neck is supple, there is no tenderness and ROM intact. Cardiovascular: There is a regular rate and rhythm. No murmur, rub or gallop is appreciated. Respiratory: Lungs are clear to auscultation, respirations are non-labored, breath sounds are equal. Gastrointestinal: Soft, non-distended, non-tender abdomen. Back: There is no tenderness to palpation in the midline, paralumbar, parathoracic or buttocks region. There is no obvious deformity . Musculoskeletal: ROM limited secondary to pain and stiffness from surgical procedure. Muscle strength in all major muscle groups of bilateral upper extremities 5/5, bilateral lower extremities 4/5. Neurological: CN 2-12 intact. There are no obvious motor or sensory deficits. Movement and coordination equal and intact. Sensory exam to light touch intact C5-T1 and intact from L2-S1. Reflexes 2/4 in bilateral upper and lower extremities. Negative Hoffmans, babinski, and clonus signs. Psychiatric: Cooperative, appropriate mood & affect, normal judgment. - Labs CBC & Chem 7: 05/10/24 06:13 Labs: Abnormal Lab Results - Last 24 Hours (Table) 05/09/24 05/10/24 Range/Units 14:07 06:13 RBC 3.22 L (4.30-5.90) m/uL Hgb 10.3 L (13.0-17.5) gm/dL Hct 29.9 L (39.0-53.0) % ABG pO2 166 H (83-108) mmHg ABG HCO3 20 L (21-25) mmol/L ABG O2 Saturation 98.7 H (94-97) % ABG Hematocrit 33 L (34.0-46.0) % ABG Glucose 164 H (75-99) mg/dL ABG Lactic Acid 3.9 H* (0.5-1.6) mmol/L Hemoglobin 10.6 L (13.0-17.5) gm/dL Arterial Blood Glucose 164 H (75-99) mg/dL Assessment and Plan Assessment: Post Op Day 1: Revision [id number] decompression and fusion with hardware removal Plan: -Appreciate x ray consultant and team management. -Activity: Ambulate QID, OOB all meals, up and about, limit lifting bending twisting to less than 5 lbs. Use walker or cane if needed for stability. -Daily PT/OT, increase ambulation strength and balance. -Brace when up and about, not needed in bed or chair -Family to bring in Brace from home. -Pain control: Adequate at this time -Meds: reviewed -GI ppx: senna, Miralax -DC hubbard when up and about, bedside commode if needed -DVT PPX: Heparin -Hygiene: Maintain dressing clean and dry. Meticulous cleaning after BMs away from the incision site -Drains: Maintain for now. Continue to monitor and record output q shift. -Encourage IS 10x/hr -Dispo: Clinically pending *I reviewed and discussed this case with my attending Dr. Don, whom has reviewed this chart and films and is in agreement with assessment and plan of care as outlined above. I have personally seen and examined the patient, performed the documentation and the assessment and plan as written. Number of minutes spent on the visit: 20m.
[2024-05-10] MEDS: polyethylene glycoL 3350 17 GM POWD.PACK PO SCH (11:30)
[2024-05-10] MEDS: HEPARIN SODIUM,PORCINE 5,000 UNIT/ML 1 ML VIAL SQ SCH (20:16)
[2024-05-10] MEDS: CYCLOBENZAPRINE 10 MG TAB PO SCH (22:22)
[2024-05-11] MEDS: atenoloL 50 MG TAB PO SCH (10:05)
[2024-05-11] MEDS: PANTOPRAZOLE 40 MG TABLET PO SCH (10:07)
--- NOTE | 2024-05-11 12:37 | P.PN ---
Subjective Progress Note Date: 05/11/24 Principal diagnosis: 1. 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 Bilateral lower extremity radiculopathy 3. Neurogenic claudication 4. Proximal junctional kyphosis 5. s/p L2-S1 revision decompression and L4-S1 fusion Patient seen and examined this morning. He is currently resting in bed. Patient states his pain is managed at this time. He states he ambulated with PT and hallway around unit and tolerated activity well. He continues to report improvement in the radiculopathy and weakness to the left lower extremity since the procedure. Surgical incision to the thoracolumbar spine, dressing is CDI. Hemovac present with documented 100 mL sanguineous output over night. Continue to encourage patient to be up in chair for all meals and use of incentive spirometer 10x/hr while awake. Objective - Vital Signs Vital signs: Vital Signs Temp 97.7 F 05/11/24 08:07 Pulse 87 05/11/24 09:07 Resp 19 05/11/24 08:07 BP 94/58 05/11/24 09:07 Pulse Ox 99 05/11/24 08:07 FiO2 Intake & Output 05/10/24 05/11/24 05/11/24 18:59 06:59 18:59 Output Total 1610 750 Balance -1610 -750 Output: Drainage 160 200 Back 160 200 Urine 1450 550 Uretheral (Mcdermott) 250 Other: Voiding Method Indwelling Catheter # Voids 1 - Exam Physical Examination General: The patient is awake and alert, in no acute distress Skin: Skin is warm and dry with no obvious rashes or lesions. Surgical incision to the thoracolumbar spine, dressing is CDI. Hemovac is present with 100ml output overnight. Eye: Pupils are equal, round and reactive to light, extra-ocular movements are intact; there is normal conjunctiva bilaterally. Neck: The neck is supple, there is no tenderness and ROM intact. Cardiovascular: There is a regular rate and rhythm. No murmur, rub or gallop is appreciated. Respiratory: Lungs are clear to auscultation, respirations are non-labored, breath sounds are equal. Gastrointestinal: Soft, non-distended, non-tender abdomen. Back: There is no tenderness to palpation in the midline, paralumbar, parathoracic or buttocks region. There is no obvious deformity . Musculoskeletal: ROM limited secondary to pain and stiffness from surgical procedure. Muscle strength in all major muscle groups of bilateral upper extremities 5/5, bilateral lower extremities 4/5. Neurological: CN 2-12 intact. There are no obvious motor or sensory deficits. Movement and coordination equal and intact. Sensory exam to light touch intact C5-T1 and intact from L2-S1. Reflexes 2/4 in bilateral upper and lower extr emities. Negative Hoffmans, babinski, and clonus signs. Psychiatric: Cooperative, appropriate mood & affect, normal judgment. - Labs CBC & Chem 7: 05/10/24 06:13 Assessment and Plan Assessment: Post Op Day 2: Revision S36-[id number] decompression and fusion with hardware removal Plan: -Appreciate oracle fusion consultant and team management. -Activity: Ambulate QID, OOB all meals, up and about, limit lifting bending twisting to less than 5 lbs. Use walker or cane if needed for stability. -Daily PT/OT, increase ambulation strength and balance. -Brace when up and about, not needed in bed or chair -Pain control: Adequate at this time -Meds: reviewed -GI ppx: senna, Miralax -DVT PPX: Heparin -Hygiene: Maintain dressing clean and dry. Meticulous cleaning after BMs away from the incision site. Dressing will be changed tomorrow with possible removal of Hemovac drain. -Drains: Maintain for now. Continue to monitor and record output q shift. -Encourage IS 10x/hr -Dispo: Anticipate discharge home with home care versus subacute rehab in the next 24 to 48 hours. *I reviewed and discussed this case with my attending Dr. Don, whom has reviewed this chart and films and is in agreement with assessment and plan of care as outlined above. I have personally seen and examined the patient, performed the documentation and the assessment and plan as written. Number of minutes spent on the visit: 20m.
--- NOTE | 2024-05-12 08:12 | P.OP ---
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 -POSTEROLATERAL AND INTERBODY FUSION L2-3 -G15-TRFCBO POSTEROLATERAL INSTRUMENTED, REVISION, FUSION -BILATERAL OPEN SACROILLIAC JOINT FUSION FOR LONG CONSTRUCT STABILITY AND SIJ FUSION (50) -INSTRUMENTATION J44-[id number] -ATTACHMENT OF THE CAUDAL END OF THE CONSTRUCT TO THE BONY PELVIS NOT SACRUM -LAMINOFORAMINOTOMY, DISCECTOMY AND DECOMPRESSION OF NEURAL ELEMENTS L2-3 FOR CAGE PLACEMENT AND DECOMPRESSION OF NEURAL ELEMENTS -REMOVAL OF HARDWARE L3-4 -EXPLORATION OF FUSION L3-PELVIS, PSEUDOARTHROSIS DEBRIDEMENT -USE OF Scicasts NAVIGATION FOR SCREW PLACEMENT USE OF IONM ALL SCREWS TESTING > 20 mA THIS CASE TOOK 80% LONGER THAN EXPECTED DUE TO CORMORBID CONDITIONS, EXTENT OF LUMBAR DISEASE, HARDWARE FAILURE AND PSEUDOARTHROSIS, AND HIGH TECHNICALITY OF THE CASE. Implants: -GLOBUS CREO SCREWS AND RODS -LIFE SPINE PROLIFT 8MM 10-17 8 DEG MED -SIROS x2 SI fusion screws 60 mm x9 mm -VESUVIUS DBM, ARTHROCELL, ALLOCELL, ILLIAC CREST AUTOGRAFT Anesthesia: GETA Surgeon: Brayan Don Bread Distributor #1: Linda Addison (was present from position to end of screw placement) Bread Distributor #2: Deandre Jackson (was present from end of screw placement to dressing placement) Estimated Blood Loss (ml): 700 IV fluids (ml): 3,500 Urine output (ml): 550 Pathology: other (Lumbar deep tissue) Condition: stable Disposition: PACU Indications for Procedure: Mr. Burns is presenting for evaluation of low back and bilateral lower extremity pain, bilateral lower extremity numbness, tingling and weakness. It was my pleasure to have seen and examined Mr. Burns. In our visit today we have had a chance to go over subjective complaints, physical examination findings and treatments including the natural course history without intervention and various interventional options. The patients imaging demonstrates: XRAY - Re-reviewed with the patient today. Date: 01/10/2024 Location: [facility] Region: Lumbar Views: AP & LAT Hardware in good position. ASD noted above his fusion at L3-4, L2-3 with disc collapse, retrolisthesis as well as facet arthropathy. These areas are hy permobile as well and likely causing him pain. No acute fracture or lesions noted. CT scan [facility] at [facility] on 11/10/2023 of the Lumbar Spine: - Re-reviewed with the patient today. No suggestion of any hardware failure, stenosis or other issues that might account for his symptoms as of now. His alignment is stable. His hardware is stable. His decompression is adequate. There is moderate ASD noted at L2-3 and 3-4 noted without severe stenosis, moderate at this time. No other complicating process seen at this time. MRI scanfrom07/11/23 taken at [facility]: - Re-reviewed with the patient today. s/p L2-S1 revision Decompression and fusion with ASD with possible continued stenosis L3-4. There is ASD at L1-2 which has a disc bulge and facet arthropathy contributing to some moderate central stenosis. No fractures no lesion otherwise noted. The decompressed area is very reasonable down low without evidence of severe stenosis. On physical exam, Mr. Burns demonstrates: A worsening throbbing, shooting pain throughout the low back that radiates down into the bilateral lower extremities. He notes progressive left leg weakness. He notes several falls due to his worsening left leg weakness. He notes continued numbness and tingling throughout the bilateral lower extremities. He states every morning his left leg, distal to the knee, locks up and spasms. H states his symptoms worsen after all activity. He states his lumbar symptoms have become debilitating. I have explained to the patient that as their condition progresses it will cause further neurological deficits and eventual paralysis. Based on the patients imaging, physical exam, and the rapid progression and disabling nature of their symptoms, at this time I recommend surgery in the form of a: Revision C05-Efzcxh decompression and fusion . I discussed the risk and benefits of this procedure at length with Mr. Burns. The patient agreed to considered pursuing the procedure abovementioned. Prior to surgery, she should follow up with her PCP (Cardio, ID, IM etc) for clearance. Questions were invited and answered, and the patient wishes to proceed as outlined below. Currently, I am recommendin.Revision V51-Amyxxc decompression and fusion Description of Procedure: Revision B35-[id number] Decompression and fusion SHASHA The patient was seen and examined in the preoperative area. All preoperative protocols were followed. Informed consent was obtained, risks and benefits of the procedure were discussed at length. Risks including bleeding infection damage to the surrounding tissue and risk of reoperation were discussed with the patient. Risk of anesthesia up to and including was discussed with the patient. These are outlined in the risk review. They were willing to accept these risks and all the risks of surgery. The patient was given a weight-based dose of antibiotics in the form of 3 g Ancef. The patient was seen and evaluated by the anesthesia team who deemed them fit for surgery. The site was marked, the patient was willing to proceed with the procedure. The patient was transferred to the operative suite by the Department of anesthesia. They were then drifted off to sleep by the department anesthesia and GETA was performed. The patient tolerated this well. Mcdermott catheter was placed by nursing staff, a-traumatically. Once confirmation of lines and ventilation the patient was transferred to a prone Trios spine table very carefully. The head was secured and stable. Xray confirmed alignment. All bony prominences including wrists, elbows, axilla, chest, hips, and thighs, and feet were padded very well. Special attention was paid to the genitalia, and th devan were padded accordingly. SCDs were placed on bilateral lower extremities and were connected. Arms were well padded and placed at 90/90 up and out and well padded. Safety strap and tape placed on the patient. Once in position, again we confirmed good ventilation capabilities and that lines were running appropriately. The patients lumbosacral pelvic was then exposed. Hair was removed for incision. 1010s were placed outlining the incision site. Standard alcohol was used to clean the incision site and allowed to dry. C-arm was used to bio-atul the patient and confirm level for incision which was marked with a skin marker. Operative briefing was performed with all teams and everyone in agreement to proceed. The patient was then prepped and draped in a normal sterile fashion. Timeout was then performed, and all parties agreed with the procedure to be performed. Midline skin incision was then made over the previously bookmarked area and dissection taken down to the lumbosacral fascia which was identified and cleaned with a barfield. Once midline was identified, fasciotomy was made over the SP of [id number]. Subperiosteal dissection was then taken down over the lamina and facet joints and TPs were exposed and trough made posterolateral. Previous hardware was identified from L3-S1. This was removed at L3-4 due to screws being loose. The remainder were tested after rods removed and were stable with purchase. It was noted however, that the right pelvic screw head broke off and so this screw was removed. There was motion at L3-4 and L5-S1 noted still due to pseudoarthrosis and incomplete fusion. There was high mobility as well as L2- 3 and instability noted. Fusion was explored. Once hardware was removed, scar tissue was removed and exposed. TPs were then decorticated L1-S1 and sacral ala with a high speed deacon for posterolateral fusion. Dissection was taken out over the sacrum to the pelvis. SI joint identified and modified Patel starting point for pelvic screws identified as well. Retractors placed. Wound was irrigated and lateral image with penfield 4 placed at the pars of L4 confirmed levels for operation. SP clamp was then placed for the [employer] navigation tracker and secured at L2 for the first set of screws. The wound was then filled with NSS and Z-drape. A 3D Ziehm spin was then obtained and registered. Once confirmation of accuracy screws were then placed from T10-L2 using navigation. Navigated high speed deacon was used to make a automatic pilot mechanic hole followed by a navigated awl-tap passed through the pedicle into the body. A ball tip probe then confirmed within the pedicle. Screws then measured and placed using a navigated screwdriver. After screws were placed from T10-L2 the tracker was replaced at S1 and a second 3D Ziehm spin was then obtained and registered. Once confirmation of accuracy screws were then placed from L3-Pelvis using navigation. AP image confirmed safe placement of screws. Lateral images as well as navigation were then used to place pelvic screw on the right as well as SI fusion screws bilaterally for open SIJ fusion. Starting point selected just lateral to the SI joint and S2 pseudo facet. Lateral image taken and deacon used to make the automatic pilot mechanic hole. Navigated awl tap passed followed by navigated screw on driver guard. Screw was then measured and selected and placed. SI joint were then fused with SiROS screws bilaterally. Navigated deacon was used to create starting point followed by navigated awl tap and then finally navigated SI screw. The SIJs were then decorticated thoroughly bilaterally using high-speed bur. Screws were then visualized under AP and were safe. Inlet outlet views also confirmed good placement of screws as well as SI screws. Screws were then tested, and reliably tested screws tested above 20 mA. Illiac crest bone graft was then taken from the right crest due to access to the starting point for pelvic screw allowing for this easily without increased trauma to the patient. The wound was irrigated and attention was turned to decompression, correction and interbody fusion. At the deformed level, L2-3, bilateral laminectomy, complete facetectomy and foraminotomies were performed using high speed bur, Kerrison rongure. There was exuberant bone formation, osteophytes and scar tissue surrounding these joints as well as the dura. Once exposed the neural elements were protected and an intradiscal osteotomy, 3 column, was performed for deformity correction at L2-3 Osteotome was used to make osteotomy in L2 and L3 and for complete disc removal. A box osteotome was then used to widen this bilaterally. This was passed into the anterior 1/3 of the vertebral body. This allowed for loosening of this level and correction. Cage was then selected based on shaving and trials. Bleeding endplates were encountered and cartilage removed. Autograft, allograft were then placed anterior to the cage. The cage was then impacted into place under lateral imaging while protecting neural elements. The cage was then expanded into position and showed good lift and correction. Voodoo of lordosis and height achieved. Meticulous hemostasis then performed. Cage was backfilled with DBM and the area irrigated. We then proceeded to revision decompression of L3-4. At this level revision laminectomy, bilateral with facetectomy and foraminotomies performed to match up with previous decompressoin from L4-S1 and the new above decompression leading to a complete decompressed area from L2-S1. Attention was then drawn to lori placement and further reduction. Rods were selected, measured, cut and bent to appropriate lordosis. They were then secured into pelvic screws b/l. Sequential reduction then done into each screw and set screw placed. Set screws were then final tightened and lateral image showed good lordosis reduction with increase in LL. Once rods were secured, cross links were selected and placed and final tightened. The wound was then irrigated with 3L Ancef irrigation, 3L gentamicin irrigation 2L Irricept and 2 L Betadine solution and 3L NSS. Dura was inspected and had no injury. Decompression was completed at this and the remainder of the levels with kerrison rongure. Then, in the posterolateral gutter was placed, Autograft and allograft, DBM. This was impacted into position and surgical placed over it. 2g Vanco powder was then placed deep in the wound. Two deep, subfascial drains were placed and secured with a stitch. We then proceeded with layered closure. #1 PDS placed in the deep fascia. 0 Vicryl placed in the deep subq, 2-0 placed in the superficial subq and michael placed in the skin. The wound edges approximated very well. The wound was then cleaned with ETOH and dressed with adaptic, 4x4, ABD pads and Ioband. Drains sewed into position. IONM confirmed no changes. The patient was then transferred off the [facility] spine table to their hospital bed a-traumatically. Drains continued to hold suction. The patient was then extubated and transferred to the ICU in stable condition having tolerated the procedure with no complications.
--- NOTE | 2024-05-12 11:22 | P.PN ---
Subjective Progress Note Date: 05/12/24 Principal diagnosis: 1. 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 Bilateral lower extremity radiculopathy 3. Neurogenic claudication 4. Proximal junctional kyphosis 5. s/p L2-S1 revision decompression and L4-S1 fusion Patient seen and examined this morning. He is currently resting in bed. Patient reports an increase in his low back pain. Medications have been adjusted. Surgical incision to the thoracolumbar spine, dressing is CDI. Hemovac present with documented 100 mL sanguineous output over night. Continue to encourage patient to be up in chair for all meals and use of incentive spirometer 10x/hr while awake. Objective - Vital Signs Vital signs: Vital Signs Temp 98.0 F 05/12/24 07:10 Pulse 90 05/12/24 07:10 Resp 16 05/12/24 07:10 BP 118/80 05/12/24 07:10 Pulse Ox 97 05/12/24 07:10 FiO2 Intake & Output 05/11/24 05/12/24 05/12/24 18:59 06:59 18:59 Output Total 130 200 Balance -130 -200 Output: Drainage 130 200 Back 130 200 Other: # Voids 3 2 - Exam Physical Examination General: The patient is awake and alert, in no acute distress Skin: Skin is warm and dry with no obvious rashes or lesions. Surgical incision to the thoracolumbar spine, dressing is CDI. Hemovac is present with 100ml output overnight. Eye: Pupils are equal, round and reactive to light, extra-ocular movements are intact; there is normal conjunctiva bilaterally. Neck: The neck is supple, there is no tenderness and ROM intact. Cardiovascular: There is a regular rate and rhythm. No murmur, rub or gallop is appreciated. Respiratory: Lungs are clear to auscultation, respirations are non-labored, breath sounds are equal. Gastrointestinal: Soft, non-distended, non-tender abdomen. Back: There is no tenderness to palpation in the midline, paralumbar, parathoracic or buttocks region. There is no obvious deformity . Musculoskeletal: ROM limited secondary to pain and stiffness from surgical procedure. Muscle strength in all major muscle groups of bilateral upper extremities 5/5, bilateral lower extremities 4/5. Neurological: CN 2-12 intact. There are no obvious motor or sensory deficits. Movement and coordination equal and intact. Sensory exam to light touch intact C5-T1 and intact from L2-S1. Reflexes 2/4 in bilateral upper and lower extremities. Negative Hoffmans, babinski, and clonus signs. Psychiatric: Cooperative, appropriate mood & affect, normal judgment. - Labs CBC & Chem 7: 05/10/24 06:13 Assessment and Plan Assessment: Post Op Day 3: Revision [id number] decompression and fusion with hardware removal Plan: -Appreciate computer systems consultant and team management. -Activity: Ambulate QID, OOB all meals, up and about, limit lifting bending twisting to less than 5 lbs. Use walker or cane if needed for stability. -Daily PT/OT, increase ambulation strength and balance. -Brace when up and about, not needed in bed or chair -Pain control: Medications have been adjusted -Meds: reviewed -GI ppx: senna, Miralax -DVT PPX: Heparin -Hygiene: Maintain dressing clean and dry. Meticulous cleaning after BMs away from the incision site. Dressing will be changed tomorrow with possible removal of Hemovac drain. -Drains: Maintain for now. Continue to monitor and record output q shift. -Encourage IS 10x/hr -Dispo: Anticipate discharge home with home care versus subacute rehab in the next 48 hours. *I reviewed and discussed this case with my attending Dr. Don, whom has reviewed this chart and films and is in agreement with assessment and plan of care as outlined above. I have personally seen and examined the patient, performed the documentation and the assessment and plan as written. Number of minutes spent on the visit: 20m.
[2024-05-12 11:39] LABS: Basophils # (A) 0.1 k/uL (0-0.2); Basophils % (A) 1 %; Eosinophils # (A) 0.3 k/uL (0-0.7); Eosinophils % (A) 4 %; HGB 9.5 gm/dL (13.0-17.5); Lymphocytes # (A) 1.9 k/uL (1.0-4.8); Lymphocytes % (A) 28 %; MCH 33.5 pg (25.0-35.0); MCHC 35.2 g/dL (31.0-37.0); MCV 95.3 fL (80.0-100.0); Monocytes # (A) 0.4 k/uL (0-1.0); Monocytes % (A) 7 %; Neutrophils # (A) 3.9 k/uL (1.3-7.7); Neutrophils % (A) 59 %; Platelet Count 140 k/uL (150-450); RBC 2.84 m/uL (4.30-5.90); RDW 13.8 % (11.5-15.5); WBC 6.7 k/uL (3.8-10.6)
[2024-05-12 11:56] LABS: ALT 16 U/L (4-49); AST 21 U/L (17-59); African American GFR (CKD) >90 (>60 ml/min/1.73 sqM); Albumin 3.2 g/dL (3.5-5.0); Albumin/Globulin Ratio 1.5; Alkaline Phosphatase 61 U/L (38-126); Anion Gap 3 mmol/L; Blood Urea Nitrogen 19 mg/dL (9-20); Calcium 8.3 mg/dL (8.4-10.2); Carbon Dioxide 30 mmol/L (22-30); Chloride 104 mmol/L (98-107); Globulin 2.2 g/dL; Glucose 94 mg/dL (74-99); Non-African American GFR(CKD) >90 (>60 ml/min/1.73 sqM); Potassium 3.7 mmol/L (3.5-5.1); Sodium 137 mmol/L (137-145); Total Bilirubin 0.4 mg/dL (0.2-1.3); Total Protein 5.4 g/dL (6.3-8.2)
[2024-05-12] MEDS: oxyCODONE-APAP 7.5-325MG 1 EACH TAB PO SCH (12:52)
--- NOTE | 2024-05-12 22:40 | PN ---
PROGRESS NOTE DATE OF SERVICE: 05/10/2024 CHIEF COMPLAINT: Status post decompressive surgery for radiculopathy. HISTORY OF PRESENT ILLNESS: This gentleman is doing well, but he is in quite a bit of pain. PHYSICAL EXAMINATION: VITAL SIGNS: Normal. CHEST: Clear. CARDIAC: Normal. IMPRESSION: Status post lumbar spine procedure for chronic pain and radiculopathy. PLAN: No change in program. MMODL / IJN: [id number] /
--- NOTE | 2024-05-12 23:01 | PN ---
PROGRESS NOTE DATE OF SERVICE: 05/11/2024 CHIEF COMPLAINT: Status post decompressive procedure on the LS spine. HISTORY OF PRESENT ILLNESS: This gentleman is doing fairly well, but he is having quite a bit of pain. PHYSICAL EXAMINATION: VITAL SIGNS: Normal. CHEST: Clear. CARDIAC: Normal. IMPRESSION: Status post lumbar spine procedure for intractable pain and radiculopathy. PLAN: I will slowly increase activity. MMODL / IJN: [id number] /
--- NOTE | 2024-05-12 23:19 | PN ---
PROGRESS NOTE DATE OF SERVICE: 05/12/2024 CHIEF COMPLAINT: Status post LS spine procedure. HISTORY OF PRESENT ILLNESS: This gentleman is still having a lot of pain, but he is doing a little bit better. PHYSICAL EXAMINATION: CHEST: Clear. CARDIAC: Normal. IMPRESSION: 1. Status post lumbar spine procedure with improvement in his radiculopathy already. 2. Chronic obstructive pulmonary disease. PLAN: No change in the management of his program at this time. MMODL / IJN: [id number] /
--- NOTE | 2024-05-13 00:31 | HP ---
HISTORY AND PHYSICAL CHIEF COMPLAINT: Recurrent back pain and radiculopathy. HISTORY OF PRESENT ILLNESS: This gentleman has come in for another elective procedure on his LS spine. He is continued to have intractable pain with radicular signs and symptoms. He has had previous LS spine surgery. REVIEW OF SYSTEMS: He denies any headaches, neurologic problems, chest pain, shortness of breath, abdominal pain, nausea, difficulty urinating, melena, hematochezia, etc. Past medical history, family history, and personal and social histories are otherwise unremarkable or noncontributory and can be found in his admitting summary. PHYSICAL EXAMINATION: VITAL SIGNS: Normal. HEAD, EARS, EYES, NOSE, MOUTH AND THROAT: Normal. NECK: Carotids normal. CHEST: Clear. CARDIAC: Normal. ABDOMEN: Soft, nontender. EXTREMITIES: Normal. IMPRESSION: 1. Chronic and intractable low back pain with radiculopathy. 2. Chronic obstructive pulmonary disease. RECOMMENDATIONS: None. Thank you respectfully, VANESA / JOSE ELIAS: [id number] /
[2024-05-13 08:24] VITALS: RESP 17
--- NOTE | 2024-05-13 09:19 | P.PN ---
Subjective Progress Note Date: 05/13/24 Principal diagnosis: 1. 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 Bilateral lower extremity radiculopathy 3. Neurogenic claudication 4. Proximal junctional kyphosis 5. s/p L2-S1 revision decompression and L4-S1 fusion Patient seen and examined this morning. Patient is sitting up in chair at bedside. He does report improvement of his pain. He reports his pain is managed on current regimen. Patient states he is looking forward to working with physical therapy today. Surgical incision to the thoracolumbar spine, edges are well-approximated with michael intact. Hemovac drain has been removed and new dressing applied. Patient states that he is progressing well and looking forward to going home with home care. Discussed with patient that if he does well with physical therapy and his pain is managed that we could possibly discharge later today. Objective - Vital Signs Vital signs: Vital Signs Temp 97.7 F 05/13/24 07:33 Pulse 90 05/13/24 07:33 Resp 17 05/13/24 07:33 BP 99/62 05/13/24 07:33 Pulse Ox 94 L 05/13/24 07:33 FiO2 Intake & Output 05/12/24 05/13/24 05/13/24 18:59 06:59 18:59 Output Total 90 180 Balance -90 -180 Output: Drainage 90 180 Back 90 180 Other: # Voids 2 1 # Bowel Movements 1 - Exam Physical Examination General: The patient is awake and alert, in no acute distress Skin: Skin is warm and dry with no obvious rashes or lesions. Surgical incision to the thoracolumbar spine, edges are well-approximated with michael intact. Hemovac drain has been removed and new surgical dressing applied. Eye: Pupils are equal, round and reactive to light, extra-ocular movements are i ntact; there is normal conjunctiva bilaterally. Neck: The neck is supple, there is no tenderness and ROM intact. Cardiovascular: There is a regular rate and rhythm. No murmur, rub or gallop is appreciated. Respiratory: Lungs are clear to auscultation, respirations are non-labored, breath sounds are equal. Gastrointestinal: Soft, non-distended, non-tender abdomen. Back: There is no tenderness to palpation in the midline, paralumbar, parathoracic or buttocks region. There is no obvious deformity . Musculoskeletal: ROM limited secondary to pain and stiffness from surgical procedure. Muscle strength in all major muscle groups of bilateral upper extremities 5/5, bilateral lower extremities 4/5. Neurological: CN 2-12 intact. There are no obvious motor or sensory deficits. Movement and coordination equal and intact. Sensory exam to light touch intact C5-T1 and intact from L2-S1. Reflexes 2/4 in bilateral upper and lower extremities. Negative Hoffmans, babinski, and clonus signs. Psychiatric: Cooperative, appropriate mood & affect, normal judgment. - Labs CBC & Chem 7: 05/12/24 11:24 05/12/24 11:24 Labs: Abnormal Lab Results - Last 24 Hours (Table) 05/12/24 05/12/24 Range/Units 11:24 11:24 RBC 2.84 L (4.30-5.90) m/uL Hgb 9.5 L (13.0-17.5) gm/dL Hct 27.0 L (39.0-53.0) % Plt Count 140 L (150-450) k/uL Creatinine 0.57 L (0.66-1.25) mg/dL Calcium 8.3 L (8.4-10.2) mg/dL Total Protein 5.4 L (6.3-8.2) g/dL Albumin 3.2 L (3.5-5.0) g/dL Assessment and Plan Assessment: Post Op Day 4: Revision [id number] decompression and fusion with hardware removal Plan: -Appreciate splunk consultant and team management. -Activity: Ambulate QID, OOB all meals, up and about, limit lifting bending twisting to less than 5 lbs. Use walker or cane if needed for stability. -Daily PT/OT, increase ambulation strength and balance. -Brace when up and about, not needed in bed or chair -Pain control: Medications have been adjusted -Meds: reviewed -GI ppx: senna, Miralax -DVT PPX: Heparin -Hygiene: Maintain dressing clean and dry. Meticulous cleaning after BMs away from the incision site. -Encourage IS 10x/hr -Dispo: Anticipate discharge home with home care later today vs tomorrow, 05/14/24. *I reviewed and discussed this case with my attending Dr. Don, whom has reviewed this chart and films and is in agreement with assessment and plan of care as outlined above. I have personally seen and examined the patient, performed the documentation and the assessment and plan as written. Number of minutes spent on the visit: 20m.
--- NOTE | 2024-05-13 13:33 | P.PN ---
Subjective Progress Note Date: 05/13/24 Patient admitted for Revision [id number] decompression and fusion with hardware removal 05/13. Patient seen and examined. Currently patient is doing well, planning to be discharged today REVIEW OF SYSTEMS: CONSTITUTIONAL: No fever, no malaise,. CARDIOVASCULAR: No chest pain, no palpitations, no syncope. PULMONARY: No shortness of breath, no cough, GASTROINTESTINAL: No diarrhea, no nausea, no vomiting, no abdominal pain. NEUROLOGICAL: No headaches, no weakness, PHYSICAL EXAMINATION: GENERAL: The patient is alert and oriented x3, not in any acute distress. Well developed, well nourished. HEENT: Pupils are round and equally reacting to light. EOMI. No scleral icterus. No conjunctival pallor. Normocephalic, atraumatic. No pharyngeal erythema. No thyromegaly. CARDIOVASCULAR: S1 and S2 present. No murmurs, rubs, or gallops. PULMONARY: Chest is clear to auscultation, no wheezing or crackles. ABDOMEN: Soft, nontender, nondistended, normoactive bowel sounds. No palpable organomegaly. MUSCULOSKELETAL: No joint swelling or deformity. EXTREMITIES: No cyanosis, clubbing, or pedal edema. NEUROLOGICAL: Gross neurological examination did not reveal any focal deficits. 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 Neurogenic claudication Proximal junctional kyphosis s/p L2-S1 revision decompression and L4-S1 fusion Monitor vital signs Monitor CBC Monitor CMP Continue pain management per orthopedics Continue DVT prophylaxis per orthopedics Resume home meds PT and OT consulted Labs and medication were reviewed.. Continue same treatment. Continue with symptomatic treatment. Resume home medication. Monitor labs and vitals. DVT and GI prophylaxis. Further recommendations as per clinical course of the patient Dictation was produced using [employer] dictation software. please excuse any grammatical, word or spelling errors. Objective - Vital Signs Vital signs: Vital Signs Temp 97.7 F 05/13/24 07:33 Pulse 90 05/13/24 07:33 Resp 17 05/13/24 07:33 BP 99/62 05/13/24 07:33 Pulse Ox 94 L 05/13/24 07:33 FiO2 Intake & Output 07/21/24 07/22/24 07/22/24 18:59 06:59 18:59 Output Total 90 180 Balance -90 -180 Output: Drainage 90 180 Back 90 180 Other: # Voids 2 1 # Bowel Movements 1 - Labs CBC & Chem 7: 05/12/24 11:24 05/12/24 11:24
--- NOTE | 2024-05-13 14:20 | P.DS ---
Providers Date of admission: 05/09/24 05:34 Expected date of discharge: 05/13/24 Attending physician: Brayan Don, DO Consults: 05/09/24 14:07 Consult Physician Routine Consulting Provider: Baudilio Leblanc Reason/Comments: Medical Management Do you want consulting provider notified?: Yes Primary care physician: Baudilio Leblanc Hospital Course: Hospital Course: The patient was evaluated preoperatively and found to have the diagnosis of Thoracolumbar adjacent segment disease. They underwent appropriate preoperative care and were willing to undergo the intended procedure. They underwent a successful revision [id number], were recovered appropriately and sent to the floor. While on the floor they worked with physical therapy, occupational therapy and nursing to enhance their recovery experience. Their pain was well controlled through their stay and they were started on appropriate medications, DVT ppx modalities, activity and dietary needs. Daily labs were monitored closely, and transfusions were only used when necessary. Medicine as well as other consulting services have made their input and have helped with our team approach and multidisciplinary care. PT milestones have been met and passed and they have made the recommendation of Home with home care for this patient and treating providers agree with this care path. The patient will be discharged home with appropriate medications, instructions and follow-up information and in stable condition. Patient Condition at Discharge: Good Plan - Discharge Summary Discharge Rx Participant: No New Discharge Prescriptions: New cefaDROXiL [Duricef] 500 mg PO Q12HR #10 cap Gabapentin 600 mg PO TID #90 tab oxyCODONE-APAP 7.5-325MG [Percocet 7.5-325 mg] 1 - 2 tab PO Q4HR PRN #42 tab PRN Reason: Pain Cyclobenzaprine [Flexeril] 10 mg PO TID PRN #40 tab PRN Reason: Muscle Spasm Sennosides/Docusate Sodium [Senna Plus 8.6-50 mg Tablet] 1 each PO DAILY PRN #20 tab PRN Reason: Constipation No Action Atorvastatin Calcium [Lipitor] 80 mg PO QAM Cyclobenzaprine [Flexeril] 10 mg PO TID #30 tab Hydrocodone-Acetamin 1 dose PO QID PRN PRN Reason: Pain atenoloL [Tenormin] 50 mg PO QAM Fenofibrate Nanocrystallized [Fenofibrate] 145 mg PO QAM Pantoprazole [Protonix] 40 mg PO QAM Gabapentin 600 mg PO TID #60 tab Discharge Medication List Atorvastatin Calcium [Lipitor] 80 mg PO QAM 07/12/22 [History] Fenofibrate Nanocrystallized [Fenofibrate] 145 mg PO QAM 07/12/22 [History] atenoloL [Tenormin] 50 mg PO QAM 07/12/22 [History] Pantoprazole [Protonix] 40 mg PO QAM 01/04/23 [History] Cyclobenzaprine [Flexeril] 10 mg PO TID #30 tab 01/13/23 [Rx] Gabapentin 600 mg PO TID #60 tab 01/13/23 [Rx] Hydrocodone-Acetamin 1 dose PO QID PRN 05/03/24 [History] Cyclobenzaprine [Flexeril] 10 mg PO TID PRN #40 tab 05/13/24 [Rx] Gabapentin 600 mg PO TID #90 tab 05/13/24 [Rx] Sennosides/Docusate Sodium [Senna Plus 8.6-50 mg Tablet] 1 each PO DAILY PRN #20 tab 05/13/24 [Rx] cefaDROXiL [Duricef] 500 mg PO Q12HR #10 cap 05/13/24 [Rx] oxyCODONE-APAP 7.5-325MG [Percocet 7.5-325 mg] 1 - 2 tab PO Q4HR PRN #42 tab 05/13/24 [Rx] Follow up Appointment(s)/Referral(s): Baudilio Leblanc MD [Primary Care Provider] - 1 Week [facility] [NON-STAFF] - As Needed (walker. any question please call agency, ) [facility], [NON-STAFF] - Brayan Don DO [Doctor of Osteopathic Medicine] - 2 Weeks Activity/Diet/Wound Care/Special Instructions: Spine Discharge and Recovery Instructions Date of Surgery: 05/09/2024 Diagnosis: thoracolumbar adjacent segment disease Procedure: Revision [id number] decompression and fusion Medications: See medication list All medication refills should be obtained through your primary care doctor or your clinic spine surgeon. Please discuss prescription refills at your follow up appointment. Do not call the hospital for medication refills. Activity: Encourage ambulation with assist of walker, Up and about 6-8x daily PT/OT daily work on balance, strength and mobility Up in chair with all meals Shower daily Brace: Use brace when up and about, do not wear in bed or shower Dressing: Leave your dressing in place for a total of 3 days post operatively. Then you may remove your dressing and leave open to air. Keep the area clean and if not able to keep area clean, then cover with sterile gauze and tape. Showering: You may shower 3 days after your procedure allowing soap and water to run over incision. Do not scrub. Do not soak. Blot dry. Follow up: Please confirm a follow up appointment with your surgeon 2 weeks post operatively. Please make an appointment to follow up with your PCP in 1-2 weeks after surgery for evaluation `3 phase, 3-week plan POST OP WEEKS 1-3 1. Lifting/carrying/pushing/pulling limited to less than 5 pounds. 2. Do not sit for longer than 15 minutes at one time. Get up and walk around. Prolonged sitting is NOT advised. If you lay down, see if you can tolerate laying down on you front (belly side) 3. Walk for periods of 15 minutes = 1 mile but no longer; do it multiple times times each day. 4. Ice your low back after activity. POST OP WEEKS 3-6 1. Lifting limited to less than 20 pounds. 2. Do not sit for longer than 30 minutes at a time. Frequently change positions. Use a sit-to stand workstation or take frequent breaks from sitting if you have returned to work. 3. Walk for 30 minutes each day. If possible, do these three or more times a day POST OP WEEKS 6+ At your 6-week appointment we will give you a physical therapy referral to focus on a core stabilization and strengthening program. You should also work on leg & buttock strengthening, hamstring & quadriceps stretching, and continue a low impact aerobic activity program such as swimming, walking, or riding a stationary bicycle. During the initial 6 weeks after your surgery, you are at the highest risk of re-injuring your spine. You should generally avoid BLTs (bending, lifting and twisting combination motions) and follow the above guidelines to reduce the faith nce of reinjury. You can anticipate post op appointments in our office at approximately 3 weeks and 6 weeks after your surgery. INCISION CARE: If your incision is not draining you do NOT need to cover it with a dressing. Keep your incision clean, dry and intact. In most cases, we apply skin glue, michael or sutures to the incision at the time of surgery. This will be like a crust or have the appearance of a scab and will fall off in time on its own. The stitches or michael need to be removed at 3 weeks post op appointment. You may begin to shower 3 days after surgery (this allows the glue to coles well). However, please avoid scrubbing the incision site or peeling off any of the skin glue. This will ensure optimal healing of your incision. Also, during this time avoid soaking the incision area in water - this includes swimming pools, hot tubs or baths. No ointments, lotions or oils on the incision until your surgeon allows. Leave michael, sutures or glue in place. Neurological dysfunction that comes on suddenly can also be a sign of a stroke. Below some common symptoms of a stroke are listed: B - balance difficulty such as sudden onset walking or leaning to one side - NEW E - eye problem such as sudden double vision or trouble seeing on one side - NEW F - Facial weakness or numbness on one side - NEW A - Arm or leg weakness or numbness on one side - NEW S - Slurred speech or difficulty with word finding - NEW T - Time is BRAIN! Call 911 as soon as you recognize these symptoms Diet: Consume a regular diet rich in vegetables and lean protein such as chicken or fish. You should consume in a ratio of approximately 20% fats|40% carbohydrates|40%protein. Vegetables, sweet potatoes, brown rice or quinoa are examples of good carbohydrates. Chips, white bread, cookies and sweets/sugar are examples of bad carbohydrates. Limit your bad carbs, go wild with good carbs. "Life's Simple 7" Guidelines as per [place] [employer] These will help you reclaim your life after surgery and press smith helper in your recovery, keeping in mind your restrictions. (1) Get Active. Physical activity can help people lose weight, control high blood pressure and cholesterol, feel emotionally better, and sleep better. (2) Control Cholesterol. Avoid a diet high in saturated fat, trans fat, & cholesterol. Limit whole milk & cream, ice cream, butter, egg yolks, processed meats (like sausage and hot dogs), and fatty meats. Choose healthy foods that are low in saturated fat, trans fat and cholesterol which include: Fruits and vegetables, fiber rich grain products (like whole grain pasta and brown rice), lean meat such as chicken, fish, nuts, seeds, and legumes. (3) Eat Better. Eat small portions. Shop at the grocery with a list and do not stray from it. Tips for a healthy diet include: Limit sodium intake to less than 1500mg daily, avoid prepackaged, processed, and fast foods, choose a diet rich in fruits, vegetables, and whole grain, high fiber foods, and limit saturated & cholesterol in your diet. (4) Manage Blood Pressure. If you have high blood pressure, you should have a cuff at home so that you can check your blood pressure regularly. Be sure you have a good cuff. An arm one is generally better than a wrist one. Bring the cuff to a doctor's appointment to validate that the measurements that your cuff are taking are accurate. Take your blood pressure twice daily when you are sitting down and relaxing. Record the numbers in a log and bring this log with you to your doctors' appointments. (5) Lose Weight if your BMI is above 25. A healthy BMI is between 19-25. To calculate Your BMI, you may use a Standard BMI Calculator on the NIH BMI website: <www.nhlbi.nih.gov/guidelines/obesity/BMI/bmicalc.htm>. Weigh oneself daily. If you are overweight, set a goal to lose weight. A pound a week loss if needed is a good target. (6) Reduce Blood Sugar. Limit foods and liquids with "added sugars." (Added sugars include sucrose, fructose, glucose, maltose, dextrose, high fructose corn syrup, corn syrup, concentrated fruit juice and honey). (7) Stop Smoking. If you smoke, quitting smoking is one of the best things that you can do for your health. Smoking increases your risk of heart attack, stroke, and peripheral vascular disease, which is a build-up of plaque in your arteries. Please discard all the cigarettes and lighters in your house. Have a plan for what you will do when you have the urge to smoke. Direct and second- hand smoke shortens your life as well as the lives of your family, friends and others around you. For your health and the health of those around you, please consider quitting! Proper Bending Body Mechanics: Maintain a wide stance with one foot slightly in front of the other. Keep your back straight. Bend utilizing the strength in your hips and knees. Do not bend at the waist. Maintain the lifted object at your waist-level close to your body. Avoid lifting weight that causes immediately pain or pain anywhere in the body afterwards. Smoking/Nicotine If there was ever one thing that you could do to increase your overall health, decrease your risk of cardiovascular problems by about 39% the second you make the choice, it is to STOP SMOKING. Your body's most instant gratification is the second you stop smoking. We have all heard the studies, read the articles but it is true, smoking is extremely bad for your overall health, and moreover it is detrimental to your bone health. Nicotine, IN ANY FORM, kills bone cells, prevents your body from healing fractures, and significantly prolongs healing after surgery. In spine surgery specifically, it increases your risk of not healing your bones to create a fusion and increases your risk of having a revision surgery due to this up to 60%. I know it is hard. I know it feels impossible. But there are ways. Take control of your life. We are here to help you through it. And when you are ready, ask us and we can direct you to help if you desire. Use the START Plan to Quit Smoking (please visit the Helpguide.org website listed below for more information): S = Set a quit date. Choose a date within the next 2 weeks, so you have enough time to prepare without losing your motivation to quit. If you mainly smoke at work, quit on the weekend, so you have a few days to adjust to the change. T = Tell family, friends, and co-workers that you plan to quit. Let your friends and family in on your plan to quit smoking and tell them you need their support and encouragement to stop. Look for a quit mason who wants to stop smoking as well. You can help each other get through the rough times. A = Anticipate and plan for the challenges you'll face while quitting. Most people who begin smoking again do so within the first 3 months. You can help yourself make it through by preparing ahead for common challenges, such as nicotine withdrawal and cigarette cravings. R = Remove cigarettes and other tobacco products from your home, car, and work. Throw away all your cigarettes (no emergency pack!), lighters, ashtrays, and matches. Wash your clothes and freshen up anything that smells like smoke. Shampoo your car, clean your drapes and carpet, and steam your furniture. T = Talk to your doctor about getting help to quit. Your doctor can prescribe medication to help with withdrawal and suggest other alternatives. If you can't see a doctor, you can get many products over the counter at your local pharmacy or grocery store, including the nicotine patch, nicotine lozenges, and nicotine gum. Resources for Quitting Smoking: <https://www.[place].gov/documents/[facility]/Quit_Tobacco_Resources_for_patients_313 480_7.pdf> Supplementation: Take recommended dosages of Vitamin D and Calcium to help fortify your bones and help them to heal. See your health maintenance packet for dosages and recommended levels. DVT/VTE prophylaxis: You will be given compression stockings from the hospital. Wear these daily for the first two weeks after surgery. You may take them off at night. You may be prescribed a medication to help thin your blood. Take this as directed. If you are not prescribed this medication, early and frequent ambulation has been shown to be the best prophylaxis to deep vein thrombosis and sequelae related to this event. Discharge Disposition: HOME WITH HOME HEALTH SERVICES
[2024-05-13 15:28] VITALS: BP 135/88; PULSE 101; TEMP 97.3
== END 2024-05-13 15:40 | disposition home health service (06) | DRG 454 ==
LOC: 2ORMAIN 05:34 → 4SSUR 15:00
PROVIDERS: ADMIT Orthopaedic Surgery; ATTEND Orthopaedic Surgery
PROC: 0SG0071 Fusion of Lumbar Vertebral Joint with Autologous Tissue Substitute, Posterior Approach, Posterior Column, Open Approach (ICD-10-PCS; 2024-05-09)
PROC: 0SG804Z Fusion of Left Sacroiliac Joint with Internal Fixation Device, Open Approach (ICD-10-PCS; 2024-05-09)
PROC: 0SG704Z Fusion of Right Sacroiliac Joint with Internal Fixation Device, Open Approach (ICD-10-PCS; 2024-05-09)
PROC: 01NB0ZZ Release Lumbar Nerve, Open Approach (ICD-10-PCS; 2024-05-09)
PROC: 0ST20ZZ Resection of Lumbar Vertebral Disc, Open Approach (ICD-10-PCS; 2024-05-09)
PROC: 0QP204Z Removal of Internal Fixation Device from Right Pelvic Bone, Open Approach (ICD-10-PCS; 2024-05-09)
PROC: 0SN00ZZ Release Lumbar Vertebral Joint, Open Approach (ICD-10-PCS; 2024-05-09)
PROC: 8E0WXBZ Computer Assisted Procedure of Trunk Region (ICD-10-PCS; 2024-05-09)
PROC: 0SG00AJ Fusion of Lumbar Vertebral Joint with Interbody Fusion Device, Posterior Approach, Anterior Column, Open Approach (ICD-10-PCS; principal; 2024-05-09 07:30)
DX: M96.0 Pseudarthrosis after fusion or arthrodesis (principal); S32.009K Unspecified fracture of unspecified lumbar vertebra, subsequent encounter for fracture with nonunion; T84.218A Breakdown (mechanical) of internal fixation device of other bones, initial encounter; J44.9 Chronic obstructive pulmonary disease, unspecified; M46.1 Sacroiliitis, not elsewhere classified; I10 Essential (primary) hypertension; M25.78 Osteophyte, vertebrae; M48.062 Spinal stenosis, lumbar region with neurogenic claudication; M54.16 Radiculopathy, lumbar region; M51.35 Other intervertebral disc degeneration, thoracolumbar region; E78.5 Hyperlipidemia, unspecified; G89.29 Other chronic pain; F17.210 Nicotine dependence, cigarettes, uncomplicated; Y79.3 Surgical instruments, materials and orthopedic devices (including sutures) associated with adverse incidents; Z77.090 Contact with and (suspected) exposure to asbestos; Z79.899 Other long term (current) drug therapy
CPT/HCPCS: 72100; 72128; 72131; 80053; 82805; 85025; 88304; 88311

== ENCOUNTER → 2024-05-21 | Outpatient (CLI) | payer MEDICARE ==
--- NOTE | 2024-05-21 14:09 | XR ---
EXAMINATION TYPE: XR thoracic spine 2V DATE OF EXAM: 05/21/2024 CLINICAL HISTORY: pain TECHNIQUE: Frontal, lateral, and swimmer's view of thoracic spine are obtained. COMPARISON: None. FINDINGS: Postoperative changes with pedicular screws placed which appears to extend from T9 through the upper sacral levels. Again michael are noted along the midline. Postoperative alignment appears t o be within normal limits. Thoracic spine show satisfactory alignment without evidence of acute fract ure or dislocation. Vertebral body heights are preserved. Visualized ribs are unremarkable. IMPRESSION: No acute fracture or dislocation is seen in the thoracic spine. ICD 10 NO FRACTURE, INIT IAL EVALUATION
--- NOTE | 2024-05-21 14:15 | XR ---
EXAMINATION TYPE: XR pelvis AP view DATE OF EXAM: 05/21/2024 CLINICAL HISTORY: pain TECHNIQUE: Single view the pelvis is submitted. FINDINGS: No evidence for fracture, dislocation or bony lesion. Joint spaces are well-preserved. S I joints appear symmetric. Postoperative changes seen. IMPRESSION: 1. No acute fracture or dislocation seen. ICD 10 NO FRACTURE, INITIAL EVALUATION
--- NOTE | 2024-05-21 14:25 | XR ---
EXAMINATION TYPE: XR lumbar spine 2 or 3V DATE OF EXAM: 05/21/2024 CLINICAL HISTORY: pain TECHNIQUE: Three views of the lumbar spine are submitted. COMPARISON: None. FINDINGS: Postoperative changes of fusion throughout the lumbar spine with appropriate postoperative alignment. Pedicular screws are in place. Midline skin michael seen. IMPRESSION: No acute fracture or dislocation is seen in the lumbar spine. ICD 10 NO FRACTURE, INITIAL EVALUATION
== END | disposition home or self-care (01) ==
LOC: RADXRMAIN 13:30
PROVIDERS: ATTEND Orthopaedic Surgery
DX: M54.50 Low back pain, unspecified (principal); M54.6 Pain in thoracic spine
CPT/HCPCS: 72070; 72100; 72170